=== PATIENT | female | born 1945 | race Caucasian/White ===

== ENCOUNTER 2019-06-07 11:20 | Outpatient (RCR) | payer MEDICARE, SELFPAY ==
[2019-03-22 13:45] LABS: INR 2.3; Iron 132 ug/dL (37-170); Prothrombin Time 24.4 Seconds (11.1-14.7)
[2019-03-22 13:55] LABS: Percent Iron Saturation 45 % (20-50)
[2019-04-27 13:18] LABS: Prothrombin Time 22.2 Seconds (11.1-14.7)
[2019-05-13 13:45] LABS: INR 1.6; Prothrombin Time 18.9 Seconds (11.1-14.7)
[2019-05-24 13:44] LABS: INR 2.6; Prothrombin Time 27.6 Seconds (11.1-14.7)
[2019-06-07 13:05] LABS: INR 2.7; Prothrombin Time 28.2 Seconds (11.1-14.7)
== END 2019-06-20 23:59 | disposition home or self-care (01) ==
LOC: ANHWCLAB 11:20
PROVIDERS: PCP Internal Medicine; Visit Provider Internal Medicine
DX: D64.9 Anemia, unspecified (principal); Z79.01 Long term (current) use of anticoagulants
CPT/HCPCS: 36415; 82728; 83540; 83550; 85610

== ENCOUNTER 2019-06-20 10:13 | Outpatient (CLI) | payer MEDICARE, SELFPAY ==
--- NOTE | ~2019-06-20 | NM_ITS ---
EXAMINATION: NM parathyroid w imaging DATE: 06/20/2019 14:42 INDICATION: Age-related osteoporosis TECHNIQUE: 18.5 mCi Tc99m tetrofosmin (Myoview) was administered by intravenous route. Anterior image s of the neck were obtained at 10 minutes and 2 hours. COMPARISON: None. FINDINGS: There is no focus of persistent activity in the area of the thyroid or mediastinum to suggest parathy roid adenoma. Photopenic defect at the lateral left midlung zone corresponding to a cardiac pacemaker on chest radiograph dated 02/22/2016. There is asymmetric curvilinear increased activity along the le ft upper arm which likely represents lymphatic accumulation of activity extravasated at the site of i njection. IMPRESSION: 1: No focus of abnormal persistent activity in the neck or superior mediastinum to suggest parathyroi d adenoma. Reviewed, dictated and finalized at location A. GN COORDINATOR IMPRESSION: 1: No focus of abnormal persistent activity in the neck or superior mediastinum to suggest parathyroid adenoma.
== END 2019-06-20 10:14 | disposition home or self-care (01) ==
LOC: ANHIMG 10:26
PROVIDERS: PCP Internal Medicine; Visit Provider Internal Medicine Endocrinology, Diabetes & Metabolism
DX: M81.0 Age-related osteoporosis without current pathological fracture (principal); R79.89 Other specified abnormal findings of blood chemistry
CPT/HCPCS: 78070; A9500

== ENCOUNTER 2019-09-26 10:31 | Outpatient (RCR) | payer MEDICARE, SELFPAY ==
[2019-07-05 13:40] LABS: INR 3.6; Prothrombin Time 35.2 Seconds (11.1-14.7)
[2019-07-15 14:01] LABS: INR 1.7; Prothrombin Time 19.7 Seconds (11.1-14.7)
[2019-07-22 13:38] LABS: INR 1.9; Prothrombin Time 21.2 Seconds (11.1-14.7)
[2019-08-02 13:57] LABS: INR 3.9; Prothrombin Time 37.3 Seconds (11.1-14.7)
[2019-08-10 13:36] LABS: INR 2.2
[2019-08-24 13:28] LABS: INR 2.9; Prothrombin Time 29.8 Seconds (11.1-14.7)
[2019-09-26 11:09] LABS: INR 3.3; Prothrombin Time 33.1 Seconds (11.1-14.7)
== END 2019-10-03 23:59 | disposition home or self-care (01) ==
LOC: ANHLAB 10:31
PROVIDERS: PCP Internal Medicine; Visit Provider Internal Medicine
DX: Z51.81 Encounter for therapeutic drug level monitoring (principal); Z79.01 Long term (current) use of anticoagulants
CPT/HCPCS: 36415; 85610

== ENCOUNTER 2019-11-07 11:41 | Outpatient (CLI) | payer MEDICARE, SELFPAY ==
[2019-11-07 12:34] LABS: Cholesterol 178 mg/dL (0-200); HDL Direct 68 mg/dL; Triglycerides 183 mg/dL (<150)
[2019-11-07 12:36] LABS: Hemoglobin A1C 5.9 % (<5.7)
[2019-11-07 12:45] LABS: LDL Cholesterol Direct 70 mg/dL
[2019-11-10 06:10] LABS: Homocysteine 13.1 umol/L (<10.4)
== END 2019-11-07 11:42 | disposition home or self-care (01) ==
PROVIDERS: PCP Internal Medicine; Visit Provider Internal Medicine
DX: Z79.899 Other long term (current) drug therapy (principal); E78.2 Mixed hyperlipidemia; R79.89 Other specified abnormal findings of blood chemistry
CPT/HCPCS: 36415; 80061; 83036; 83090; 84443

== ENCOUNTER 2019-11-18 00:21 | Outpatient (CLI) | payer MEDICARE, SELFPAY ==
[2019-11-19 00:18] LABS: SARS-CoV-2 RNA PCR Negative
== END 2019-11-18 00:22 | disposition home or self-care (01) ==
LOC: ANHCOVIDDT 00:21
PROVIDERS: PCP Internal Medicine; Visit Provider Specialist
DX: Z01.818 Encounter for other preprocedural examination (principal); Z11.59 Encounter for screening for other viral diseases
CPT/HCPCS: 87635; C9803; U0003

== ENCOUNTER 2019-11-21 05:26 | Day surgery (SDC) | payer MEDICARE, SELFPAY ==
[2019-11-17 16:06] VITALS: BMI 19.7
[2019-11-21 08:45] VITALS: BP 172/60; PULSE 57; RESP 15; TEMP 36.1; O2SAT 98
[2019-11-21 08:47] LABS: Basophils Percent Auto 0.5 % (0.2-1.2); Eosinophils Absolute Auto 0.3 K/mm3 (0-0.3); Eosinophils Percent Auto 3.7 % (0-4.4); Hematocrit 36.4 % (37.0-47.0); Hemoglobin 11.4 g/dL (12.0-15.0); Immature Granulocyte Absolute 0.03 K/mm3 (0.00-0.031); Immature Granulocyte Percent A 0.4 % (0-0.5); Lymphocytes Absolute Auto 1.25 K/mm3 (0.9-3.2); Lymphocytes Percent Auto 16.1 % (18.3-44.2); Mean Corpuscular HGB Conc 31.3 g/dl (32-36); Mean Corpuscular Hemoglobin 23.1 pg (26-34); Mean Corpuscular Volume 73.7 fl (80-100); Mean Platelet Volume 10.3 fl (7.4-10.4); Monocytes Absolute Auto 0.8 K/mm3 (0.1-0.6); Monocytes Percent Auto 10.8 % (2.6-8.5); Neutrophils Absolute Auto 5.3 K/mm3 (1.3-6.7); Neutrophils Percent Auto 68.5 % (45.5-73.1); Platelet Count Result 238 k/mm3 (150-375); Red Blood Count 4.94 M/mm3 (4.2-5.4); Red Cell Distribution Width 15.3 % (11.5-14.5); White Blood Count 7.8 K/mm3 (4.5-10.0)
[2019-11-21 08:56] LABS: INR 1.1; Prothrombin Time 13.7 Seconds (11.1-14.7)
[2019-11-21 09:04] LABS: Blood Urea Nitrogen 25 mg/dL (7-17); Calcium 9.1 mg/dL (8.4-10.2); Carbon Dioxide 25 mmol/L (22-30); Chloride 107 mmol/L (98-107); Estimated CRCL calculation 35 ml/min; Estimated Glomerular Filt Rate > 60; Glucose 111 mg/dL (65-105); Potassium 5.3 mmol/L (3.4-5.0); Sodium 137 mmol/L (137-145)
--- NOTE | 2019-11-21 09:11 | WPDMODSED ---
Moderate Sedation Note-Pt Data Patient Data Diagnosis: Permanently implanted pacemaker at [facility] Paroxysmal atrial fibrillation History of mitral valve stenosis status post commissurotomy Present Complaint: No complaints Procedure to be performed/Plan: Pacemaker generator change Allergies Allergy/AdvReac Type Severity Reaction Status Date / Time No Known Allergies Allergy Verified 11/11/19 11:16 Home Medications Medication Instructions Recorded Confirmed Type pravastatin 40 mg tablet 40 mg PO DAILY #90 tablet 04/25/19 11/21/19 Rx sotalol 80 mg tablet 80 mg PO BID tablet 07/05/19 11/21/19 History folic acid 1 mg tablet 1 mg PO DAILY 07/08/19 11/21/19 History losartan 25 mg tablet 25 mg PO DAILY #90 tablet 09/20/19 11/21/19 Rx warfarin 1 mg tablet 1 mg PO DAILY #90 tablet 10/11/19 11/21/19 Rx warfarin 2 mg tablet 2 mg PO DAILY #90 tablet 10/11/19 11/21/19 Rx phenytoin sodium extended 100 mg PO BID 11/21/19 11/21/19 History Sedation/Anesthesia: No previous sedation/anesthesia problems (including family history). [facility] Past Medical History Medical History (Updated 11/11/19 @ 11:30 by Deana Hernandez CMA) Abnormal finding of blood chemistry, unspecified Adult BMI 19-24 kg/sq m Aortic valve disease Benign essential hypertension Cardiac pacemaker in situ Chronic atrial fibrillation Elevated homocysteine Elevated parathyroid hormone Encounter for Medicare annual wellness exam Encounter for routine adult health examination without abnormal findings Follow up Hearing loss Hemiparesis of left nondominant side History of CVA (cerebrovascular accident) Hyperlipidemia 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 Pre-diabetes Rash Seizures Vitamin D deficiency Social History Social History Smoking status: Never smoker Alcohol intake: current 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 Physical Exam Physical Exam Pre Procedural Exam: Normal: Appearance, Neck, Throat, Airway, Lungs, Heart Size, Heart Rate, Heart Rhythm, Neuro Exam and Extremities Hours since solid foods: 12 Hours since liquid intake: 12 Internal Medicine - PN: Obj Da Labs CBC & Chem 7: 11/21/19 08:35 11/21/19 08:35 Labs: Laboratory Results - last 24 hr 11/21/19 11/21/19 11/21/19 08:35 08:35 08:35 WBC 7.8 RBC 4.94 Hgb 11.4 L Hct 36.4 L MCV 73.7 L MCH 23.1 L MCHC 31.3 L RDW 15.3 H Plt Count 238 MPV 10.3 Immature Gran % (Auto) 0.4 Neut % (Auto) 68.5 Lymph % (Auto) 16.1 L [place] % (Auto) 10.8 H Eos % (Auto) 3.7 Baso % (Auto) 0.5 Lymph # (Auto) 1.25 [place] # (Auto) 0.8 H Eos # (Auto) 0.3 Baso # (Auto) 0.0 Abs Immat Gran (auto) 0.03 Absolute Neuts (auto) 5.3 Absolute Nucleated RBC 0.0 Nucleated RBC % 0.0 PT 13.7 INR 1.1 Sodium 137 Potassium 5.3 H Chloride 107 Carbon Dioxide 25 BUN 25 H Creatinine 0.90 Estim Creat Clear Calc 35 Estimated GFR > 60 Glucose 111 H Calcium 9.1 ASA Classification/Sedation ASA Classification/Sedation ASA Class: II Emergent: No Risks: Risks, benefits and alternatives explained and patient/family accepted plan for sedation. Patient re-evaluated immediately prior to sedation.
--- NOTE | 2019-11-21 10:37 | P.PCNCC_ITS ---
Cardiac Cath Procedure Note Date of procedure:: 11/21/19 Performing physician:: Amrik Anand MD Indication:: Chronically implanted pacemaker at [facility] Brief clinical history:: this is a 74-year-old lady with a history of mitral valve disease and atrial fibrillation. She has a chronically implanted ventricular pacemaker originally placed in 1991. The current generator which I believe is her 3rd is now at [facility]. Procedure Procedure performed:: Explantation of depleted pacemaker pulse generator implantation of new pacemaker pulse generator Sedation/Medication given:: fentanyl 50 mg Versed 2 mg case start time 10:12 a.m. case end time 10:30 a.m. sedation provided by Jian Myers RN, trained observer Access site:: chronic left anterior chest wall pocket Estimated blood loss:: 10-15 cc Procedure note:: patient was brought to the cardiac catheterization lab in the postabsorptive state the left anterior chest wall with the chronically implanted device was prepped and draped in the usual sterile fashion. Anesthesia was then provided above the pocket using 1% lidocaine 20 cc. Following this an incision was made using the plasma blade over the chronically implanted device and electrocautery was used to provide cutaneous hemostasis. The plasma blade was used to dissect the subcutaneous fat and the fibrous capsule of the pocket was encountered. This was then opened with the plasma blade in the chronically implanted pacing device was removed. The pacemaker generator and the lead were visually intact and unremarkable in appearance. The torque wrench was used to loosen the lead from the chronic device and remove the lead. The the depleted device was then discarded. The new pacemaker generator detailed below was connected to the lead using the torque wrench the entire assembly was placed into the pocket which was then closed in layers. Prior to closure the pocket was irrigated with antibiotic infused saline. 3-0 Vicryl was used to provides closure of the subcutaneous tissue and then 4 0 Vicryl in a running subcuticular fashion. The wound was then dressed with an Aquacel dressing and the patient was taken to the holding area for recovery. The procedure was well tolerated and unremarkable. Findings:: Explantation of chronically implanted pacemaker generator which was a [employer] SR 5180 serial number [id number]. implantation of new pacemaker generator, [employer] [facility] [id number]. the device is programmed in the VVI mode lower rate limit 50. L chronically implanted [employer] lead model 033-444 serial [id number]. R waves are sensed at 9.9 mV, capture 1.0 volt at 0.4 millisecond pacing impedance 530 Ohms Conclusion:: 1. successful explantation of depleted pacemaker pulse generator 2. successful implantation of new single-chamber ventricular pulse generator 3. chronically implanted lead from 1991 is performing excellently Amrik Anand MD [facility]
[2019-11-21 10:45] VITALS: BP 152/55; PULSE 59; RESP 14; O2SAT 96
[2019-11-21 11:00] VITALS: BP 146/48; PULSE 59; RESP 15; O2SAT 97
[2019-11-21 11:15] VITALS: BP 113/51; PULSE 17; RESP 18; O2SAT 96
[2019-11-21 11:30] VITALS: BP 108/48; PULSE 58; RESP 16; O2SAT 97
== END 2019-11-21 12:00 | disposition home or self-care (01) ==
PROVIDERS: PCP Internal Medicine; Visit Provider Specialist
DX: Z45.010 Encounter for checking and testing of cardiac pacemaker pulse generator [battery] (principal); I48.0 Paroxysmal atrial fibrillation; I10 Essential (primary) hypertension; I69.354 Hemiplegia and hemiparesis following cerebral infarction affecting left non-dominant side; E78.5 Hyperlipidemia, unspecified; G40.909 Epilepsy, unspecified, not intractable, without status epilepticus; Z79.01 Long term (current) use of anticoagulants
CPT/HCPCS: 33227; 36415; 80048; 85025; 85610; C1786; J0690; J2250; J3010; J7040

== ENCOUNTER 2019-12-08 13:00 | Outpatient (RCR) | payer MEDICARE, SELFPAY ==
[2019-10-05 12:12] LABS: INR 2.4; Prothrombin Time 25.4 Seconds (11.1-14.7)
[2019-10-24 10:35] LABS: Prothrombin Time 22.3 Seconds (11.1-14.7)
[2019-12-01 14:11] LABS: INR 1.8; Prothrombin Time 20.5 Seconds (11.1-14.7)
[2019-12-08 13:56] LABS: INR 2.2; Prothrombin Time 24.2 Seconds (11.1-14.7)
== END 2020-01-03 23:59 | disposition home or self-care (01) ==
LOC: ANHLAB 13:00
PROVIDERS: PCP Internal Medicine; Visit Provider Internal Medicine
DX: Z51.81 Encounter for therapeutic drug level monitoring (principal); I48.20 Chronic atrial fibrillation, unspecified; I10 Essential (primary) hypertension; Z79.899 Other long term (current) drug therapy
CPT/HCPCS: 36415; 85610

== ENCOUNTER → 2019-12-19 11:01 | Outpatient (CLI) | payer MEDICARE, SELFPAY ==
--- NOTE | ~2019-12-19 | US_ITS ---
EXAMINATION: US thyroid EXAM DATE: 12/19/2019 11:22 INDICATION: Endocrine disorder. TECHNIQUE: Multiple grayscale and Doppler images of the thyroid were obtained (by a technologist who performed the scan) and subsequently reviewed. Individual nodules and recommendations may be reporte d in accordance with TI-RADS system as designated by the 2017 ACR White Paper TI-RADS committee. The re is no prior study for comparison. FINDINGS: The right thyroid lobe measures 3.7 x 2.0 x 1.1 cm, the left measuring 3.6 x 1.1 x 0.9 cm. Mildly het erogeneous thyroid echogenicity with expected amount of vascularity. There are 2 small hypoechoic rig ht thyroid lobe nodules, larger measuring 4 mm. These are not likely clinically significant. IMPRESSION: Mildly heterogeneous thyroid parenchyma, small nodules not likely clinically significant. Reviewed, dictated and finalized at location A. IMPRESSION: Mildly heterogeneous thyroid parenchyma, small nodules not likely c linically significant.
== END ==
PROVIDERS: PCP Internal Medicine; Visit Provider Internal Medicine
DX: E04.1 Nontoxic single thyroid nodule (principal)
CPT/HCPCS: 76536

== ENCOUNTER 2020-03-14 13:35 | Outpatient (CLI) | payer MEDICARE, SELFPAY ==
[2020-03-14 14:02] LABS: Basophils Percent Auto 0.6 % (0.2-1.2); Eosinophils Absolute Auto 0.3 K/mm3 (0-0.3); Eosinophils Percent Auto 4.2 % (0-4.4); Hematocrit 36.8 % (37.0-47.0); Hemoglobin 11.4 g/dL (12.0-15.0); Immature Granulocyte Absolute 0.02 K/mm3 (0.00-0.031); Immature Granulocyte Percent A 0.3 % (0-0.5); Lymphocytes Absolute Auto 1.45 K/mm3 (0.9-3.2); Lymphocytes Percent Auto 21.1 % (18.3-44.2); Mean Corpuscular Volume 74.3 fl (80-100); Mean Platelet Volume 9.4 fl (7.4-10.4); Monocytes Absolute Auto 0.8 K/mm3 (0.1-0.6); Monocytes Percent Auto 11.2 % (2.6-8.5); Neutrophils Absolute Auto 4.3 K/mm3 (1.3-6.7); Neutrophils Percent Auto 62.6 % (45.5-73.1); Platelet Count Result 205 k/mm3 (150-375); Red Blood Count 4.95 M/mm3 (4.2-5.4); Red Cell Distribution Width 15.2 % (11.5-14.5); White Blood Count 6.9 K/mm3 (4.5-10.0)
[2020-03-14 14:10] LABS: Hemoglobin A1C 5.4 % (<5.7)
[2020-03-14 14:24] LABS: LDL Cholesterol Direct 54 mg/dL
[2020-03-14 14:35] LABS: Cholesterol 159 mg/dL (0-200); HDL Direct 67 mg/dL; Triglycerides 181 mg/dL (<150)
[2020-03-16 16:51] LABS: Anion Gap 7 mmol/L (8-16); Carbon Dioxide 25 mmol/L (22-30); Chloride 109 mmol/L (98-107); Sodium 141 mmol/L (137-145)
[2020-03-16 16:52] LABS: Blood Urea Nitrogen 20 mg/dL (7-17); Calcium 9.1 mg/dL (8.4-10.2); Estimated Glomerular Filt Rate 54; Glucose 102 mg/dL (65-105)
== END 2020-03-14 13:36 | disposition home or self-care (01) ==
LOC: ANHLAB 13:38
PROVIDERS: PCP Internal Medicine; Visit Provider Internal Medicine
DX: I10 Essential (primary) hypertension (principal); E78.2 Mixed hyperlipidemia; R73.03 Prediabetes
CPT/HCPCS: 36415; 80048; 80061; 83036; 85025; 85610

== ENCOUNTER → 2020-03-23 09:28 | Outpatient (CLI) | payer MEDICARE, SELFPAY ==
--- NOTE | ~2020-03-23 | DEXA_ITS ---
Bone Density Report Name: Kait Skaggs Age: 75 Sex: Female Ethnicity: Date of : 1945 Indication: postmenopausal osteoporosis; monitoring treatment; height loss; prior fracture; Referring Provider: Perlita Argueta Study: Bone densitometry was performed. Exam Date: March 23, 2020 Accession number: [id number] Bone Density: Region BMD T-score Z-score Classification AP Spine (L1-L4) 0.658 -3.5 -1.0 Osteoporosis Femoral Neck (Left) 0.474 -3.4 -1.2 Osteoporosis Total Hip (Left) 0.510 -3.5 -1.6 Osteoporosis Femoral Neck (Right) 0.505 -3.1 -0.9 Osteoporosis Total Hip (Right) 0.585 -2.9 -1.0 Osteoporosis Total Hip Mean 0.548 -3.2 -1.3 Osteoporosis World Health Organization criteria for BMD impression classify patients as: Normal (T-score at or above -1.0), Osteopenia (T-score between -1.0 and -2.5), or Osteoporosis (T-score at or below -2.5). 10-year Fracture Risk: FRAX not reported because: Some T-score for Spine Total or Hip Total or Femoral Neck at or below -2.5 Treated for osteoporosis Previous Exams: Region Exam Age BMD T-score BMD Change BMD Change Date g/cm2 vs Baseline vs Previous AP Spine(L1-L4) 03/23/2020 75 0.658 -3.5 0.032* -0.006 03/31/2018 73 0.664 -3.5 0.038* 0.007 03/13/2016 71 0.657 -3.5 0.031* 0.035 12/15/2013 68 0.623 -3.9 -0.004 -0.004 12/22/2005 60 0.626 -3.8 Total Hip(Left) 03/23/2020 75 0.510 -3.5 0.041* 0.000 03/31/2018 73 0.510 -3.5 0.041* -0.004 03/13/2016 71 0.514 -3.5 0.045* 0.016 12/15/2013 68 0.498 -3.6 0.029* 0.029* 12/22/2005 60 0.469 -3.9 Total Hip(Right) 03/23/2020 75 0.585 -2.9 0.030* -0.005 03/31/2018 73 0.591 -2.9 0.035* 0.003 03/13/2016 71 0.588 -2.9 0.033* 0.006 12/15/2013 68 0.582 -2.9 0.027 0.027 12/22/2005 60 0.555 -3.2 *Denotes significance at 95% confidence level, LSC for AP Spine = 0.022 g/cm2, LSC for Total Hip = 0.027 g/cm2 Clinical Information Provided by Patient: Has had a low trauma fracture Is being treated for osteoporosis Has used the following medications: Fosamax (i.e. alendronate), Vitamin D, Calcium Patient maximum height was 61 Menopause Age: 50 No regular weight bearing exercise Drinks caffeinated beverages Onset of menses at age 13 Number of childr
== END ==
PROVIDERS: Visit Provider Internal Medicine Endocrinology, Diabetes & Metabolism
DX: M81.0 Age-related osteoporosis without current pathological fracture (principal)
CPT/HCPCS: 77080

== ENCOUNTER → 2020-03-29 14:27 | Outpatient (CLI) | payer MEDICARE, SELFPAY ==
--- NOTE | ~2020-03-29 | MM_ITS ---
EXAMINATION: MM screening gopi BI w jarrod HISTORY: Screening mammogram TECHNIQUE: Craniocaudal and mediolateral oblique 3-D tomosynthesis images were obtained and synthetic 2-D images were generated. CAD analysis was submitted and interpreted. COMPARISON: 04/13/2017, 03/13/2016, 03/08/2015 BREAST PARENCHYMAL COMPOSITION: The breasts are heterogeneously dense, which may obscure small masses . FINDINGS: Scattered benign-appearing calcifications are present. There is no evidence of suspicious m ass, calcification, or architectural distortion to suggest malignancy in either breast. There has bee n no suspicious interval change. IMPRESSION: 1. No mammographic evidence of malignancy. 2. Recommend routine screening mammography in one year. BI-RADS Category 2: Benign finding(s). Reviewed, dictated and finalized at location A. SIT CLERK
== END ==
PROVIDERS: PCP Internal Medicine; Visit Provider Internal Medicine
DX: Z12.31 Encounter for screening mammogram for malignant neoplasm of breast (principal)
CPT/HCPCS: 77063; 77067

== ENCOUNTER 2020-04-06 13:18 | Outpatient (RCR) | payer MEDICARE, SELFPAY ==
[2020-01-09 14:56] LABS: INR 2.4; Prothrombin Time 25.4 Seconds (11.1-14.7)
[2020-02-07 13:47] LABS: INR 2.8; Prothrombin Time 28.9 Seconds (11.1-14.7)
[2020-03-14 14:12] LABS: INR 2.8; Prothrombin Time 28.8 Seconds (11.1-14.7)
[2020-04-06 14:45] LABS: INR 2.6; Prothrombin Time 28.1 Seconds (11.1-14.7)
== END 2020-04-08 23:59 | disposition home or self-care (01) ==
LOC: ANHLAB 13:18
PROVIDERS: PCP Internal Medicine; Visit Provider Internal Medicine
DX: I48.20 Chronic atrial fibrillation, unspecified (principal)
CPT/HCPCS: 36415; 85610

== ENCOUNTER 2020-07-24 13:52 | Outpatient (RCR) | payer MEDICARE, SELFPAY ==
[2020-05-02 14:16] LABS: INR 2.8
[2020-06-15 14:29] LABS: Basophils Percent Auto 0.4 % (0.2-1.2); Eosinophils Absolute Auto 0.4 K/mm3 (0-0.3); Hematocrit 33.9 % (37.0-47.0); Hemoglobin 10.6 g/dL (12.0-15.0); Immature Granulocyte Absolute 0.03 K/mm3 (0.00-0.031); Immature Granulocyte Percent A 0.4 % (0-0.5); Lymphocytes Absolute Auto 1.55 K/mm3 (0.9-3.2); Lymphocytes Percent Auto 22.3 % (18.3-44.2); Mean Corpuscular HGB Conc 31.3 g/dl (32-36); Mean Corpuscular Hemoglobin 22.9 pg (26-34); Mean Corpuscular Volume 73.2 fl (80-100); Mean Platelet Volume 9.6 fl (7.4-10.4); Monocytes Absolute Auto 0.8 K/mm3 (0.1-0.6); Monocytes Percent Auto 11.8 % (2.6-8.5); Neutrophils Absolute Auto 4.2 K/mm3 (1.3-6.7); Neutrophils Percent Auto 60.1 % (45.5-73.1); Platelet Count Result 203 k/mm3 (150-375); Red Blood Count 4.63 M/mm3 (4.2-5.4); Red Cell Distribution Width 15.2 % (11.5-14.5)
[2020-06-15 14:40] LABS: Anion Gap 4 mmol/L (8-16); Blood Urea Nitrogen 22 mg/dL (7-17); Carbon Dioxide 27 mmol/L (22-30); Chloride 109 mmol/L (98-107); Cholesterol 159 mg/dL (0-200); Estimated Glomerular Filt Rate 48; Glucose 105 mg/dL (65-105); HDL Direct 63 mg/dL; Potassium 4.5 mmol/L (3.4-5.0); Sodium 140 mmol/L (137-145); Triglycerides 152 mg/dL (<150)
[2020-06-15 14:50] LABS: LDL Cholesterol Direct 59 mg/dL
[2020-06-15 14:52] LABS: INR 2.4; Prothrombin Time 26.6 Seconds (11.1-14.7)
[2020-06-15 16:27] LABS: Hemoglobin A1C 5.4 % (<5.7)
[2020-07-09 14:59] LABS: INR 3.1; Prothrombin Time 32.3 Seconds (11.1-14.7)
[2020-07-24 14:24] LABS: INR 2.2
== END 2020-07-31 23:59 | disposition home or self-care (01) ==
LOC: ANHLAB 13:52
PROVIDERS: PCP Internal Medicine; Visit Provider Internal Medicine
DX: Z51.81 Encounter for therapeutic drug level monitoring (principal); I48.20 Chronic atrial fibrillation, unspecified; I10 Essential (primary) hypertension; E78.2 Mixed hyperlipidemia; R73.03 Prediabetes; Z79.899 Other long term (current) drug therapy
CPT/HCPCS: 36415; 80048; 80061; 83036; 85025; 85610

== ENCOUNTER 2020-11-09 16:15 | Outpatient (RCR) | payer MEDICARE, SELFPAY ==
[2020-08-23 12:49] LABS: INR 2.1; Prothrombin Time 24.5 Seconds (11.1-14.7)
[2020-09-28 14:04] LABS: INR 1.9
[2020-10-12 16:25] LABS: Prothrombin Time 23.2 Seconds (11.1-14.7)
[2020-11-09 17:26] LABS: INR 1.9; Prothrombin Time 22.4 Seconds (11.1-14.7)
== END 2020-11-21 23:59 | disposition home or self-care (01) ==
LOC: ANHLAB 16:15
PROVIDERS: PCP Internal Medicine; Visit Provider Internal Medicine
DX: I48.20 Chronic atrial fibrillation, unspecified (principal)
CPT/HCPCS: 36415; 85610

== ENCOUNTER 2020-11-09 16:18 | Outpatient (CLI) | payer MEDICARE, SELFPAY ==
[2020-11-09 17:21] LABS: Add Urine Microscopic? YES; Appearance Urine Clear (Clear); Bilirubin Urine Negative (Negative); Blood Urine Negative (Negative); Color Urine Yellow (Yellow); Glucose Urine UA Negative (Negative); Ketones Urine Negative (Negative); Leukocyte Esterase Ur Negative LEU/UL (NEGATIVE); Nitrate Urine Negative (Negative); Protein Urine 2+ mg/dL (Negative); Squamous Epithelial Cell Urine Rare /hpf (Few); Urobilinogen Urine Negative mg/dL (<2.0); WBC Urine 0-3 /hpf (0-3)
[2020-11-09 17:34] LABS: Anion Gap 8 mmol/L (8-16); Blood Urea Nitrogen 21 mg/dL (7-17); Calcium 9.3 mg/dL (8.4-10.2); Carbon Dioxide 25 mmol/L (22-30); Chloride 108 mmol/L (98-107); Cholesterol 168 mg/dL (0-200); Estimated Glomerular Filt Rate 48; Glucose 96 mg/dL (65-105); HDL Direct 78 mg/dL; Potassium 4.4 mmol/L (3.4-5.0); Sodium 141 mmol/L (137-145)
[2020-11-09 17:38] LABS: LDL Cholesterol Direct 62 mg/dL
[2020-11-09 18:04] LABS: Iron 108 ug/dL (37-170)
[2020-11-09 18:13] LABS: Percent Iron Saturation 39 % (20-50)
[2020-11-09 18:22] LABS: Hemoglobin A1C 5.7 % (<5.7)
[2020-11-09 21:35] LABS: Triglycerides 117 mg/dL (<150)
[2020-11-13 05:17] LABS: Phenytoin Dilantin Free 1.5 mg/L (1.0-2.0)
== END 2020-11-09 16:19 | disposition home or self-care (01) ==
PROVIDERS: PCP Internal Medicine; Visit Provider Internal Medicine
DX: D64.9 Anemia, unspecified (principal); I10 Essential (primary) hypertension; E78.2 Mixed hyperlipidemia; Z79.899 Other long term (current) drug therapy; R56.9 Unspecified convulsions; R73.03 Prediabetes
CPT/HCPCS: 36415; 80048; 80061; 80186; 81001; 82728; 83036; 83540; 83550; 85610

== ENCOUNTER 2020-11-16 13:43 | Outpatient (CLI) | payer MEDICARE, SELFPAY ==
--- NOTE | ~2020-11-16 | CT_ITS ---
EXAMINATION: CT abdomen pelvis wo/w con EXAM DATE: 11/16/2020 15:16 INDICATION: R31.9 - Hematuria, unspecified. TECHNIQUE: Spiral CT of the abdomen and pelvis was performed without contrast. The patient was then injected with small bolus intravenous Omnipaque 350, followed by delay of approximately 10 minutes to allow collecting system to opacify. A post contrast scan abdomen and pelvis was performed during inj ection of remaining contrast. A total of 130 cc intravenous contrast was administered. The dose-evangelista th product (DLP) for this examination was 588.61 mGy-cm. The exposure was tailored according to suzette ent size (auto mA exposure control), and iterative reconstruction (ASIR) was used as additional dose reduction technique. There is no prior study for comparison. FINDINGS: There is no hydronephrosis or nephrolithiasis. The kidneys enhance symmetrically. There a re no suspicious renal lesions. The calyces and opacified portions of ureters are unremarkable, with out filling defects or focal suspicious strictures. The bladder is unremarkable. The uterus is unre markable. The liver, spleen, adrenal glands and pancreas are unremarkable. Gallbladder is unremarkable. No bi liary obstruction. There is no retroperitoneal or pelvic lymphadenopathy. There is mild scattered arteriosclerotic disease. The appendix is not positively visualized. There is no pericecal inflammatory change to suggest appe ndicitis. The stomach and small bowel are unremarkable. There is expected amount of colonic stool. No free intraperitoneal gas. Cardiomegaly. Cardiac pacemaker/AICD device. Basilar pulmonary vasc ular congestion and some groundglass opacities, could be air trapping or mild pulmonary edema. There are no osteoblastic or osteolytic lesions identified. IMPRESSION: 1. No suspicious genitourinary findings. 2. Cardiomegaly, congestion. Mild pulmonary edema or air trapping. Reviewed, dictated and finalized at location A.
[2020-11-16 14:51] LABS: Estimated Glomerular Filt Rate 40
== END 2020-11-16 13:44 | disposition home or self-care (01) ==
PROVIDERS: PCP Internal Medicine; Visit Provider Internal Medicine
DX: R31.9 Hematuria, unspecified (principal); I51.7 Cardiomegaly
CPT/HCPCS: 74178; Q9967

== ENCOUNTER 2020-11-23 16:09 | Outpatient (CLI) | payer MEDICARE, SELFPAY ==
[2020-11-23 16:47] LABS: Collection Time Urine 24 HOURS
[2020-11-23 17:03] LABS: Total Volume 24 Hour Urine 500 ml
[2020-11-23 17:04] LABS: Creatinine Urine 98.6 mg/dL; Total Protein Urine 24 Hr 50 mg/24hr (28-141); Total Protein Urine Random 10 mg/dL
[2020-12-02 15:02] LABS: Serum Creat 1.3
[2020-12-02 15:05] LABS: Creatinine Clearance Urine 32.5 ml/min (75-125); Patient Weight 103 Lbs
== END 2020-11-23 16:10 | disposition home or self-care (01) ==
LOC: ANHLAB 16:14
PROVIDERS: PCP Internal Medicine; Visit Provider Internal Medicine
DX: R80.9 Proteinuria, unspecified (principal)
CPT/HCPCS: 36415; 81050; 82575; 84156; 85610

== ENCOUNTER 2020-11-30 12:07 | Outpatient (CLI) | payer MEDICARE, SELFPAY ==
[2020-11-30 12:38] LABS: Estimated Glomerular Filt Rate 40
== END 2020-11-30 12:08 | disposition home or self-care (01) ==
LOC: ANHLAB 12:12
PROVIDERS: PCP Internal Medicine; Visit Provider Internal Medicine
DX: R80.9 Proteinuria, unspecified (principal)
CPT/HCPCS: 36415; 82565

== ENCOUNTER 2021-02-08 13:46 | Outpatient (RCR) | payer MEDICARE, SELFPAY ==
[2020-11-23 16:52] LABS: INR 1.9; Prothrombin Time 21.4 Seconds (11.1-14.7)
[2020-12-28 12:27] LABS: INR 2.1; Prothrombin Time 22.8 Seconds (11.1-14.7)
[2021-01-18 17:30] LABS: INR 1.9; Prothrombin Time 21.6 Seconds (11.1-14.7)
[2021-02-08 14:31] LABS: INR 2.2; Prothrombin Time 23.7 Seconds (11.1-14.7)
== END 2021-02-21 23:59 | disposition home or self-care (01) ==
LOC: ANHLAB 13:46
PROVIDERS: PCP Internal Medicine; Visit Provider Internal Medicine
DX: I48.20 Chronic atrial fibrillation, unspecified (principal)
CPT/HCPCS: 36415; 85610

== ENCOUNTER 2021-03-21 16:51 | Outpatient (CLI) | payer MEDICARE, SELFPAY ==
[2021-03-21 17:11] LABS: Basophils Percent Auto 0.4 % (0.2-1.2); Eosinophils Absolute Auto 0.3 K/mm3 (0-0.3); Eosinophils Percent Auto 4.3 % (0-4.4); Hematocrit 38.6 % (37.0-47.0); Immature Granulocyte Absolute 0.01 K/mm3 (0.00-0.031); Immature Granulocyte Percent A 0.1 % (0-0.5); Lymphocytes Absolute Auto 1.77 K/mm3 (0.9-3.2); Lymphocytes Percent Auto 26.4 % (18.3-44.2); Mean Corpuscular HGB Conc 31.1 g/dl (32-36); Mean Corpuscular Hemoglobin 23.5 pg (26-34); Mean Corpuscular Volume 75.7 fl (80-100); Mean Platelet Volume 9.3 fl (7.4-10.4); Monocytes Absolute Auto 0.8 K/mm3 (0.1-0.6); Monocytes Percent Auto 11.3 % (2.6-8.5); Neutrophils Absolute Auto 3.8 K/mm3 (1.3-6.7); Neutrophils Percent Auto 57.5 % (45.5-73.1); Platelet Count Result 212 k/mm3 (150-375); White Blood Count 6.7 K/mm3 (4.5-10.0)
[2021-03-21 17:18] LABS: Hemoglobin A1C 5.5 % (<5.7)
[2021-03-21 17:23] LABS: Anion Gap 9 mmol/L (8-16); Blood Urea Nitrogen 20 mg/dL (7-17); Calcium 9.5 mg/dL (8.4-10.2); Carbon Dioxide 26 mmol/L (22-30); Chloride 107 mmol/L (98-107); Cholesterol 187 mg/dL (0-200); Estimated Glomerular Filt Rate 48; Glucose 112 mg/dL (65-110); HDL Direct 81 mg/dL; Potassium 4.6 mmol/L (3.4-5.0); Sodium 142 mmol/L (137-145); Triglycerides 140 mg/dL (<150)
[2021-03-21 17:34] LABS: LDL Cholesterol Direct 70 mg/dL
[2021-03-21 18:37] LABS: Free T4 Free Thyroxine 1.22 ng/mL (0.78-2.19)
== END 2021-03-21 16:52 | disposition home or self-care (01) ==
LOC: ANHLAB 16:54
PROVIDERS: PCP Internal Medicine; Visit Provider Internal Medicine
DX: E78.2 Mixed hyperlipidemia (principal); I10 Essential (primary) hypertension; R73.03 Prediabetes; Z79.899 Other long term (current) drug therapy; D64.9 Anemia, unspecified
CPT/HCPCS: 36415; 80048; 80061; 83036; 84439; 84443; 85025

== ENCOUNTER 2021-05-23 16:59 | Outpatient (RCR) | payer MEDICARE, SELFPAY ==
[2021-03-08 12:13] LABS: INR 2.5; Prothrombin Time 26.1 Seconds (11.1-14.7)
[2021-04-18 17:16] LABS: INR 2.3; Prothrombin Time 24.8 Seconds (11.1-14.7)
[2021-05-23 17:25] LABS: INR 2.5; Prothrombin Time 26.6 Seconds (11.1-14.7)
== END 2021-06-06 23:59 | disposition home or self-care (01) ==
LOC: ANHLAB 16:59
PROVIDERS: PCP Internal Medicine; Visit Provider Internal Medicine
DX: I48.20 Chronic atrial fibrillation, unspecified (principal)
CPT/HCPCS: 36415; 85610

== ENCOUNTER 2021-07-08 12:31 | Outpatient (CLI) | payer MEDICARE, SELFPAY ==
[2021-07-08 13:34] LABS: Alanine Aminotransferase 21 U/L (4-35); Alkaline Phosphatase 91 U/L (38-126); Anion Gap 9 mmol/L (8-16); Aspartate Amino Transferase 32 U/L (14-36); Bilirubin,Total 0.2 mg/dL (0.2-1.3); Blood Urea Nitrogen 22 mg/dL (7-17); Calcium 9.4 mg/dL (8.4-10.2); Carbon Dioxide 23 mmol/L (22-30); Chloride 111 mmol/L (98-107); Estimated Glomerular Filt Rate 48; Glucose 109 mg/dL (65-110); Magnesium 1.8 mg/dL (1.6-2.3); Potassium 4.6 mmol/L (3.4-5.0); Sodium 143 mmol/L (137-145)
[2021-07-08 13:43] LABS: Parathyroid Intact 81.3 pg/mL (7.5-53.5)
[2021-07-08 14:46] LABS: Vitamin D 25 Hydroxy 62.5 ng/mL
[2021-07-10 11:33] LABS: Cholesterol 176 mg/dL (0-200); HDL Direct 65 mg/dL; Triglycerides 139 mg/dL (<150)
[2021-07-10 11:45] LABS: LDL Cholesterol Direct 63 mg/dL
== END 2021-07-08 12:32 | disposition home or self-care (01) ==
LOC: ANHLAB 12:39
PROVIDERS: PCP Internal Medicine
DX: E78.2 Mixed hyperlipidemia (principal); M81.0 Age-related osteoporosis without current pathological fracture
CPT/HCPCS: 36415; 80053; 80061; 82306; 83735; 83970; 84100

== ENCOUNTER 2021-07-18 16:54 | Outpatient (CLI) | payer MEDICARE, SELFPAY ==
[2021-07-21 06:49] LABS: Triiodothyronine T3 Free 3.2 pg/mL (2.3-4.2)
== END 2021-07-18 16:55 | disposition home or self-care (01) ==
PROVIDERS: PCP Internal Medicine
DX: R53.83 Other fatigue (principal); Z51.81 Encounter for therapeutic drug level monitoring; Z79.899 Other long term (current) drug therapy
CPT/HCPCS: 36415; 80053; 80186; 82306; 83735; 83970; 84100; 84439; 84443; 84481; 85610

== ENCOUNTER 2021-08-01 17:10 | Outpatient (CLI) | payer MEDICARE, SELFPAY ==
[2021-08-01 18:04] LABS: Anion Gap 7 mmol/L (8-16); Blood Urea Nitrogen 24 mg/dL (7-17); Calcium 8.5 mg/dL (8.4-10.2); Carbon Dioxide 23 mmol/L (22-30); Chloride 109 mmol/L (98-107); Cholesterol 169 mg/dL (0-200); Estimated Glomerular Filt Rate 54; Glucose 110 mg/dL (65-110); HDL Direct 72 mg/dL; Potassium 4.9 mmol/L (3.4-5.0); Sodium 139 mmol/L (137-145); Triglycerides 110 mg/dL (<150)
[2021-08-01 18:15] LABS: LDL Cholesterol Direct 56 mg/dL
[2021-08-01 18:58] LABS: Hemoglobin A1C 5.2 % (<5.7)
== END 2021-08-01 17:11 | disposition home or self-care (01) ==
LOC: ANHLAB 17:12
PROVIDERS: PCP Internal Medicine; Visit Provider Internal Medicine
DX: R73.03 Prediabetes (principal); E78.2 Mixed hyperlipidemia; I10 Essential (primary) hypertension; R56.9 Unspecified convulsions
CPT/HCPCS: 36415; 80048; 80061; 83036

== ENCOUNTER 2021-08-22 17:14 | Outpatient (RCR) | payer MEDICARE, SELFPAY ==
[2021-06-17 17:59] LABS: INR 1.9; Prothrombin Time 21.3 Seconds (11.1-14.7)
[2021-07-18 17:54] LABS: INR 1.6; Prothrombin Time 18.8 Seconds (11.1-14.7)
[2021-07-18 17:55] LABS: Alanine Aminotransferase 19 U/L (4-35); Albumin Level 4.1 g/dL (3.5-5.1); Alkaline Phosphatase 92 U/L (38-126); Anion Gap 9 mmol/L (8-16); Aspartate Amino Transferase 32 U/L (14-36); Bilirubin,Total 0.2 mg/dL (0.2-1.3); Blood Urea Nitrogen 19 mg/dL (7-17); Carbon Dioxide 23 mmol/L (22-30); Chloride 109 mmol/L (98-107); Estimated Glomerular Filt Rate 54; Glucose 110 mg/dL (65-110); Magnesium 1.5 mg/dL (1.6-2.3); Potassium 4.4 mmol/L (3.4-5.0); Sodium 141 mmol/L (137-145)
[2021-07-18 18:06] LABS: Parathyroid Intact 62.6 pg/mL (7.5-53.5)
[2021-07-18 19:12] LABS: Free T4 Free Thyroxine 1.51 ng/mL (0.78-2.19); Vitamin D 25 Hydroxy 58.9 ng/mL
[2021-07-21 18:34] LABS: Phenytoin Dilantin Free 0.6 mg/L (1.0-2.0)
[2021-07-25 16:44] LABS: INR 2.6; Prothrombin Time 26.9 Seconds (11.1-14.7)
[2021-08-22 17:55] LABS: INR 2.7; Prothrombin Time 27.5 Seconds (11.1-14.7)
== END 2021-09-15 23:59 | disposition home or self-care (01) ==
LOC: ANHLAB 17:14
PROVIDERS: PCP Internal Medicine; Referring Provider Internal Medicine Endocrinology, Diabetes & Metabolism; Visit Provider Internal Medicine
DX: I48.20 Chronic atrial fibrillation, unspecified (principal)
CPT/HCPCS: 36415; 80053; 80186; 82306; 83735; 83970; 84100; 84439; 84443; 85610

== ENCOUNTER → 2021-09-27 10:21 | Outpatient (CLI) | payer MEDICARE, SELFPAY ==
--- NOTE | ~2021-09-27 | US_ITS ---
EXAMINATION: US thyroid DATE: 09/27/2021 10:52 INDICATION: Thyroid nodule. Endocrine disorder, unspecified. TECHNIQUE: Multiple ultrasound images of the thyroid were obtained. COMPARISON: Ultrasound 12/19/2019 FINDINGS: The right thyroid lobe measures 3.7 x 2.1 x 1.3 cm. The left thyroid lobe measures 3.5 x 1.2 x 1.1 c m. There are two 3 mm nodules in right thyroid lobe. IMPRESSION: 1. Small thyroid nodules, likely not clinically significant. No follow-up is needed. Reviewed, dictated and finalized at location A. IMPRESSION: 1. Small thyroid nodules, likely not clinically significant. No follow-up is ne eded.
== END ==
PROVIDERS: PCP Internal Medicine; Visit Provider Internal Medicine
DX: E04.2 Nontoxic multinodular goiter (principal)
CPT/HCPCS: 76536

== ENCOUNTER 2021-12-16 16:52 | Outpatient (RCR) | payer MEDICARE, SELFPAY ==
[2021-09-19 17:07] LABS: INR 3.2; Prothrombin Time 31.7 Seconds (11.1-14.7)
[2021-10-04 16:55] LABS: INR 3.2
[2021-10-24 17:43] LABS: INR 2.6; Prothrombin Time 27.3 Seconds (11.1-14.7)
[2021-11-08 12:19] LABS: Prothrombin Time 30.2 Seconds (11.1-14.7)
[2021-12-16 17:41] LABS: INR 3.3; Prothrombin Time 32.6 Seconds (11.1-14.7)
== END 2021-12-18 23:59 | disposition home or self-care (01) ==
LOC: ANHLAB 16:52
PROVIDERS: PCP Internal Medicine; Visit Provider Internal Medicine
DX: I48.20 Chronic atrial fibrillation, unspecified (principal)
CPT/HCPCS: 36415; 85610

== ENCOUNTER 2021-12-16 16:54 | Outpatient (CLI) | payer MEDICARE, SELFPAY ==
[2021-12-16 17:45] LABS: Alanine Aminotransferase 17 U/L (6-35); Albumin Level 4.3 g/dL (3.5-5.1); Alkaline Phosphatase 83 U/L (38-126); Anion Gap 11 mmol/L (8-16); Aspartate Amino Transferase 24 U/L (14-36); Bilirubin,Total 0.3 mg/dL (0.2-1.3); Blood Urea Nitrogen 23 mg/dL (7-17); Calcium 8.8 mg/dL (8.4-10.2); Carbon Dioxide 21 mmol/L (22-30); Chloride 109 mmol/L (98-107); Cholesterol 178 mg/dL (0-200); Estimated Glomerular Filt Rate 43; Glucose 108 mg/dL (65-110); HDL Direct 70 mg/dL; Sodium 141 mmol/L (137-145); Triglycerides 143 mg/dL (<150)
[2021-12-16 17:56] LABS: LDL Cholesterol Direct 52 mg/dL
[2021-12-16 18:37] LABS: Free T4 Free Thyroxine 1.29 ng/mL (0.78-2.19); Vitamin D 25 Hydroxy 98.2 ng/mL
[2021-12-16 21:54] LABS: Hemoglobin A1C 5.4 % (<5.7)
== END 2021-12-16 16:55 | disposition home or self-care (01) ==
PROVIDERS: PCP Internal Medicine; Visit Provider Internal Medicine
DX: R73.03 Prediabetes (principal); E55.9 Vitamin D deficiency, unspecified; E78.2 Mixed hyperlipidemia; Z79.899 Other long term (current) drug therapy; Z13.29 Encounter for screening for other suspected endocrine disorder; I10 Essential (primary) hypertension
CPT/HCPCS: 36415; 80053; 80061; 82306; 83036; 84439; 84443; 85610

== ENCOUNTER 2022-01-16 17:19 | Outpatient (RCR) | payer MEDICARE, SELFPAY ==
[2021-12-23 17:18] LABS: Prothrombin Time 30.1 Seconds (11.1-14.7)
[2022-01-16 18:16] LABS: INR 3.6; Prothrombin Time 34.5 Seconds (11.1-14.7)
== END 2022-03-23 23:59 | disposition home or self-care (01) ==
LOC: ANHIMG 17:19
PROVIDERS: PCP Internal Medicine; Visit Provider Internal Medicine
DX: I48.20 Chronic atrial fibrillation, unspecified (principal)
CPT/HCPCS: 36415; 85610

== ENCOUNTER 2022-03-21 11:42 | Outpatient (RCR) | payer MEDICARE, SELFPAY ==
[2022-01-24 14:24] LABS: INR 2.5; Prothrombin Time 25.9 Seconds (11.1-14.7)
[2022-02-03 17:29] LABS: INR 1.9; Prothrombin Time 21.4 Seconds (11.1-14.7)
[2022-02-20 16:55] LABS: Prothrombin Time 30.2 Seconds (11.1-14.7)
[2022-03-21 12:13] LABS: INR 2.1; Prothrombin Time 22.6 Seconds (11.1-14.7)
== END 2022-04-24 23:59 | disposition home or self-care (01) ==
LOC: ANHLAB 11:42
PROVIDERS: PCP Internal Medicine; Visit Provider Internal Medicine
DX: Z51.81 Encounter for therapeutic drug level monitoring (principal); I48.20 Chronic atrial fibrillation, unspecified; Z86.73 Personal history of transient ischemic attack (TIA), and cerebral infarction without residual deficits
CPT/HCPCS: 36415; 85610

== ENCOUNTER 2022-04-18 10:43 | Outpatient (CLI) | payer MEDICARE, SELFPAY ==
--- NOTE | ~2022-04-18 | XR_ITS ---
EXAMINATION: XR hip BI 2V w AP pelvis DATE: 04/18/2022 11:18 INDICATION: Myalgia TECHNIQUE: AP view the pelvis and two views of each hip were obtained. COMPARISON: 11/03/2013 FINDINGS: Bone alignment is normal. There is no fracture. Calcified atherosclerosis is noted. There i s mild osteoarthritis of the hips. IMPRESSION: 1. Mild osteoarthritis of the hips. Reviewed, dictated and finalized at location A. SUPPORT MAKER
== END 2022-04-18 10:44 | disposition home or self-care (01) ==
LOC: ANHIMG 10:46
PROVIDERS: PCP Internal Medicine; Visit Provider Internal Medicine
DX: M16.0 Bilateral primary osteoarthritis of hip (principal); M79.18 Myalgia, other site
CPT/HCPCS: 73521

== ENCOUNTER 2022-05-01 17:19 | Outpatient (CLI) | payer MEDICARE, SELFPAY ==
[2022-05-01 18:37] LABS: Alanine Aminotransferase 26 U/L (6-35); Albumin Level 4.4 g/dL (3.5-5.1); Alkaline Phosphatase 180 U/L (38-126); Anion Gap 6 mmol/L (8-16); Aspartate Amino Transferase 40 U/L (14-36); Bilirubin,Total 0.3 mg/dL (0.2-1.3); Blood Urea Nitrogen 20 mg/dL (7-17); Calcium 8.6 mg/dL (8.4-10.2); Carbon Dioxide 27 mmol/L (22-30); Chloride 108 mmol/L (98-107); Cholesterol 188 mg/dL (0-200); Estimated Glomerular Filt Rate 53; Glucose 102 mg/dL (65-110); HDL Direct 70 mg/dL; Potassium 4.7 mmol/L (3.4-5.0); Sodium 141 mmol/L (137-145); Triglycerides 226 mg/dL (<150)
[2022-05-01 18:39] LABS: Hemoglobin A1C 5.7 % (<5.7)
[2022-05-01 18:47] LABS: LDL Cholesterol Direct 58 mg/dL
[2022-05-01 19:16] LABS: Vitamin D 25 Hydroxy 93.7 ng/mL
== END 2022-05-01 17:20 | disposition home or self-care (01) ==
LOC: ANHLAB 17:21
PROVIDERS: PCP Internal Medicine; Visit Provider Internal Medicine
DX: E78.2 Mixed hyperlipidemia (principal); I10 Essential (primary) hypertension; E55.9 Vitamin D deficiency, unspecified; R73.03 Prediabetes
CPT/HCPCS: 36415; 80053; 80061; 82306; 83036; 85610

== ENCOUNTER 2022-05-27 17:02 | Outpatient (CLI) | payer MEDICARE, SELFPAY ==
[2022-05-27 17:25] LABS: Basophils Absolute Auto 0.1 K/mm3 (0.0-0.1); Basophils Percent Auto 0.8 % (0.2-1.2); Eosinophils Absolute Auto 0.4 K/mm3 (0-0.3); Eosinophils Percent Auto 4.9 % (0-4.4); Hematocrit 36.9 % (37.0-47.0); Hemoglobin 11.7 g/dL (12.0-15.0); Immature Granulocyte Absolute 0.01 K/mm3 (0.00-0.031); Immature Granulocyte Percent A 0.1 % (0-0.5); Lymphocytes Percent Auto 23.6 % (18.3-44.2); Mean Corpuscular HGB Conc 31.7 g/dl (32-36); Mean Corpuscular Hemoglobin 23.3 pg (26-34); Mean Corpuscular Volume 73.4 fl (80-100); Mean Platelet Volume 10.3 fl (7.4-10.4); Monocytes Percent Auto 13.5 % (2.6-8.5); Neutrophils Absolute Auto 4.1 K/mm3 (1.3-6.7); Neutrophils Percent Auto 57.1 % (45.5-73.1); Platelet Count Result 240 k/mm3 (150-375); Red Blood Count 5.03 M/mm3 (4.2-5.4); Red Cell Distribution Width 15.5 % (11.5-14.5); White Blood Count 7.2 K/mm3 (4.5-10.0)
[2022-05-27 17:36] LABS: Alanine Aminotransferase 19 U/L (6-35); Albumin Level 4.2 g/dL (3.5-5.1); Alkaline Phosphatase 98 U/L (38-126); Anion Gap 10 mmol/L (8-16); Aspartate Amino Transferase 27 U/L (14-36); Bilirubin,Total 0.2 mg/dL (0.2-1.3); Blood Urea Nitrogen 28 mg/dL (7-17); Calcium 8.4 mg/dL (8.4-10.2); Carbon Dioxide 22 mmol/L (22-30); Chloride 111 mmol/L (98-107); Estimated Glomerular Filt Rate 48; Glucose 110 mg/dL (65-110); Potassium 4.7 mmol/L (3.4-5.0); Sodium 143 mmol/L (137-145)
[2022-05-27 18:02] LABS: SARS-CoV-2 RNA PCR Negative
[2022-05-27 18:35] LABS: Platelet Estimate Adequate (Adequate); Schistocytes None Seen (NORMAL)
[2022-05-27 18:36] LABS: Anisocytosis 1+ (NORMAL); Hypochromasia 1+ (NORMAL)
== END 2022-05-27 17:03 | disposition home or self-care (01) ==
PROVIDERS: PCP Internal Medicine; Visit Provider Internal Medicine Cardiovascular Disease
DX: Z01.812 Encounter for preprocedural laboratory examination (principal); Z20.822 Contact with and (suspected) exposure to COVID-19
CPT/HCPCS: 36415; 80053; 85025; 85610; U0003; U0005

== ENCOUNTER 2022-07-24 17:02 | Outpatient (RCR) | payer MEDICARE, SELFPAY ==
[2022-05-01 18:22] LABS: INR 2.3; Prothrombin Time 24.7 Seconds (11.1-14.7)
[2022-05-22 18:29] LABS: INR 2.1; Prothrombin Time 22.6 Seconds (11.1-14.7)
[2022-06-03 17:28] LABS: INR 1.8; Prothrombin Time 20.4 Seconds (11.1-14.7)
[2022-06-13 14:52] LABS: INR 4.5; Prothrombin Time 41.5 Seconds (11.1-14.7)
[2022-06-26 17:37] LABS: INR 3.8; Prothrombin Time 36.3 Seconds (11.1-14.7)
[2022-07-03 17:36] LABS: INR 2.2; Prothrombin Time 24.1 Seconds (11.1-14.7)
[2022-07-24 17:38] LABS: INR 2.4; Prothrombin Time 25.7 Seconds (11.1-14.7)
== END 2022-07-30 23:59 | disposition home or self-care (01) ==
LOC: ANHLAB 17:02
PROVIDERS: PCP Internal Medicine; Visit Provider Internal Medicine
DX: I48.20 Chronic atrial fibrillation, unspecified (principal)
CPT/HCPCS: 36415; 85610

== ENCOUNTER 2022-09-18 16:57 | Outpatient (CLI) | payer MEDICARE, SELFPAY ==
[2022-09-18 17:22] LABS: Basophils Percent Auto 0.4 % (0.2-1.2); Eosinophils Absolute Auto 0.5 K/mm3 (0-0.3); Eosinophils Percent Auto 6.3 % (0-4.4); Hematocrit 34.2 % (37.0-47.0); Hemoglobin 10.6 g/dL (12.0-15.0); Immature Granulocyte Absolute 0.02 K/mm3 (0.00-0.031); Immature Granulocyte Percent A 0.3 % (0-0.5); Lymphocytes Absolute Auto 1.27 K/mm3 (0.9-3.2); Lymphocytes Percent Auto 17.7 % (18.3-44.2); Mean Corpuscular Hemoglobin 23.3 pg (26-34); Mean Corpuscular Volume 75.3 fl (80-100); Mean Platelet Volume 10.2 fl (7.4-10.4); Monocytes Percent Auto 13.2 % (2.6-8.5); Neutrophils Absolute Auto 4.5 K/mm3 (1.3-6.7); Neutrophils Percent Auto 62.1 % (45.5-73.1); Platelet Count Result 259 k/mm3 (150-375); Red Blood Count 4.54 M/mm3 (4.2-5.4); Red Cell Distribution Width 15.9 % (11.5-14.5); White Blood Count 7.2 K/mm3 (4.5-10.0)
[2022-09-18 18:55] LABS: Alanine Aminotransferase 29 U/L (6-35); Albumin Level 4.2 g/dL (3.5-5.1); Alkaline Phosphatase 100 U/L (38-126); Anion Gap 8 mmol/L (8-16); Aspartate Amino Transferase 33 U/L (14-36); Bilirubin,Total 0.4 mg/dL (0.2-1.3); Blood Urea Nitrogen 22 mg/dL (7-17); Calcium 8.5 mg/dL (8.4-10.2); Carbon Dioxide 22 mmol/L (22-30); Chloride 111 mmol/L (98-107); Cholesterol 156 mg/dL (0-200); Estimated Glomerular Filt Rate 48; Glucose 104 mg/dL (65-110); HDL Direct 64 mg/dL; Potassium 5.3 mmol/L (3.4-5.0); Sodium 141 mmol/L (137-145); Triglycerides 226 mg/dL (<150)
[2022-09-18 19:06] LABS: LDL Cholesterol Direct 55 mg/dL
[2022-09-18 20:29] LABS: Free T4 Free Thyroxine 1.41 ng/mL (0.78-2.19); Vitamin D 25 Hydroxy 60.3 ng/mL
[2022-09-18 21:51] LABS: Hemoglobin A1C 5.4 % (<5.7)
== END 2022-09-18 16:58 | disposition home or self-care (01) ==
LOC: ANHLAB 16:58
PROVIDERS: PCP Internal Medicine; Visit Provider Internal Medicine
DX: R73.03 Prediabetes (principal); I10 Essential (primary) hypertension; Z79.899 Other long term (current) drug therapy; Z13.29 Encounter for screening for other suspected endocrine disorder; E78.2 Mixed hyperlipidemia; E55.9 Vitamin D deficiency, unspecified
CPT/HCPCS: 36415; 80053; 80061; 82306; 83036; 84439; 84443; 85025; 85610

== ENCOUNTER 2022-10-09 15:46 | Outpatient (RCR) | payer MEDICARE, SELFPAY ==
[2022-08-07 17:43] LABS: Prothrombin Time 30.2 Seconds (11.1-14.7)
[2022-08-19 17:39] LABS: INR 2.8; Prothrombin Time 28.5 Seconds (11.1-14.7)
[2022-09-18 17:32] LABS: INR 2.7; Prothrombin Time 31.2 Seconds (11.1-14.7)
[2022-10-09 16:23] LABS: INR 3.2; Prothrombin Time 35.6 Seconds (11.1-14.7)
== END 2022-11-05 23:59 | disposition home or self-care (01) ==
LOC: ANHLAB 15:46
PROVIDERS: PCP Internal Medicine; Visit Provider Internal Medicine
DX: Z51.81 Encounter for therapeutic drug level monitoring (principal); Z86.73 Personal history of transient ischemic attack (TIA), and cerebral infarction without residual deficits; Z98.890 Other specified postprocedural states; Z79.01 Long term (current) use of anticoagulants
CPT/HCPCS: 36415; 85610

== ENCOUNTER 2022-10-09 15:47 | Outpatient (CLI) | payer MEDICARE, SELFPAY ==
[2022-10-09 17:30] LABS: Iron 82 ug/dL (37-170)
[2022-10-09 17:40] LABS: Percent Iron Saturation 27 % (20-50)
[2022-10-09 20:37] LABS: Folic Acid > 20.0 ng/mL (2.76->20); Vitamin B12 > 1000.0 pg/mL (239-931)
== END 2022-10-09 15:48 | disposition home or self-care (01) ==
LOC: ANHLAB 15:48
PROVIDERS: PCP Internal Medicine; Visit Provider Internal Medicine
DX: E53.8 Deficiency of other specified B group vitamins (principal); D64.9 Anemia, unspecified
CPT/HCPCS: 36415; 82607; 82728; 82746; 83540; 83550; 85610

== ENCOUNTER 2023-01-29 17:00 | Outpatient (RCR) | payer MEDICARE, SELFPAY ==
[2022-11-06 18:06] LABS: INR 2.5; Prothrombin Time 28.7 Seconds (11.1-14.7)
[2022-12-11 11:11] LABS: INR 2.9
[2023-01-08 17:30] LABS: Prothrombin Time 42.8 Seconds (11.1-14.7)
[2023-01-29 17:38] LABS: INR 2.9; Prothrombin Time 32.4 Seconds (11.1-14.7)
== END 2023-02-04 23:59 | disposition home or self-care (01) ==
LOC: ANHLAB 17:00
PROVIDERS: PCP Internal Medicine; Visit Provider Internal Medicine
DX: Z51.81 Encounter for therapeutic drug level monitoring (principal); Z86.73 Personal history of transient ischemic attack (TIA), and cerebral infarction without residual deficits; Z98.890 Other specified postprocedural states; Z79.01 Long term (current) use of anticoagulants
CPT/HCPCS: 36415; 85610

== ENCOUNTER 2023-03-05 17:01 | Outpatient (CLI) | payer MEDICARE, SELFPAY ==
[2023-03-05 17:49] LABS: Basophils Percent Auto 0.6 % (0.2-1.2); Eosinophils Absolute Auto 0.6 K/mm3 (0-0.3); Eosinophils Percent Auto 7.8 % (0-4.4); Hematocrit 31.9 % (37.0-47.0); Immature Granulocyte Absolute 0.02 K/mm3 (0.00-0.031); Immature Granulocyte Percent A 0.3 % (0-0.5); Lymphocytes Absolute Auto 1.07 K/mm3 (0.9-3.2); Lymphocytes Percent Auto 15.1 % (18.3-44.2); Mean Corpuscular HGB Conc 31.3 g/dl (32-36); Mean Corpuscular Hemoglobin 23.8 pg (26-34); Mean Corpuscular Volume 75.8 fl (80-100); Mean Platelet Volume 9.2 fl (7.4-10.4); Monocytes Absolute Auto 0.9 K/mm3 (0.1-0.6); Monocytes Percent Auto 12.3 % (2.6-8.5); Neutrophils Absolute Auto 4.5 K/mm3 (1.3-6.7); Neutrophils Percent Auto 63.9 % (45.5-73.1); Platelet Count Result 232 k/mm3 (150-375); Red Blood Count 4.21 M/mm3 (4.2-5.4); Red Cell Distribution Width 16.6 % (11.5-14.5); White Blood Count 7.1 K/mm3 (4.5-10.0)
[2023-03-05 18:02] LABS: Alanine Aminotransferase 16 U/L (6-35); Albumin Level 3.9 g/dL (3.5-5.1); Alkaline Phosphatase 94 U/L (38-126); Anion Gap 5 mmol/L (8-16); Aspartate Amino Transferase 26 U/L (14-36); Bilirubin,Total 0.4 mg/dL (0.2-1.3); Blood Urea Nitrogen 28 mg/dL (7-17); Carbon Dioxide 23 mmol/L (22-30); Chloride 109 mmol/L (98-107); Cholesterol 157 mg/dL (0-200); Estimated Glomerular Filt Rate 43; Glucose 102 mg/dL (65-110); HDL Direct 74 mg/dL; Potassium 4.7 mmol/L (3.4-5.0); Sodium 137 mmol/L (137-145); Triglycerides 152 mg/dL (<150)
[2023-03-05 18:13] LABS: LDL Cholesterol Direct 58 mg/dL
[2023-03-05 19:38] LABS: Free T4 Free Thyroxine 1.37 ng/mL (0.78-2.19); Vitamin D 25 Hydroxy 56.3 ng/mL
[2023-03-06 04:39] LABS: Hemoglobin A1C 5.2 % (<5.7)
== END 2023-03-05 17:02 | disposition home or self-care (01) ==
LOC: ANHLAB 17:03
PROVIDERS: PCP Internal Medicine; Visit Provider Internal Medicine
DX: E55.9 Vitamin D deficiency, unspecified (principal); Z79.899 Other long term (current) drug therapy; Z13.29 Encounter for screening for other suspected endocrine disorder; R73.03 Prediabetes; E78.2 Mixed hyperlipidemia; I10 Essential (primary) hypertension
CPT/HCPCS: 36415; 80053; 80061; 82306; 83036; 84439; 84443; 85025; 85610

== ENCOUNTER 2023-04-02 08:23 | Outpatient (CLI) | payer MEDICARE, SELFPAY ==
[2023-04-02 09:13] LABS: Basophils Percent Auto 0.6 % (0.2-1.2); Eosinophils Absolute Auto 0.4 K/mm3 (0-0.3); Eosinophils Percent Auto 6.6 % (0-4.4); Hematocrit 32.5 % (37.0-47.0); Immature Granulocyte Absolute 0.02 K/mm3 (0.00-0.031); Immature Granulocyte Percent A 0.3 % (0-0.5); Lymphocytes Absolute Auto 1.11 K/mm3 (0.9-3.2); Lymphocytes Percent Auto 17.1 % (18.3-44.2); Mean Corpuscular HGB Conc 30.8 g/dl (32-36); Mean Corpuscular Hemoglobin 23.4 pg (26-34); Mean Corpuscular Volume 76.1 fl (80-100); Mean Platelet Volume 8.6 fl (7.4-10.4); Monocytes Absolute Auto 0.8 K/mm3 (0.1-0.6); Monocytes Percent Auto 11.9 % (2.6-8.5); Neutrophils Absolute Auto 4.1 K/mm3 (1.3-6.7); Neutrophils Percent Auto 63.5 % (45.5-73.1); Platelet Count Result 209 k/mm3 (150-375); Red Blood Count 4.27 M/mm3 (4.2-5.4); Red Cell Distribution Width 15.9 % (11.5-14.5); White Blood Count 6.5 K/mm3 (4.5-10.0)
[2023-04-02 09:17] LABS: Anion Gap 9 mmol/L (8-16); Blood Urea Nitrogen 23 mg/dL (7-17); Calcium 8.5 mg/dL (8.4-10.2); Carbon Dioxide 22 mmol/L (22-30); Chloride 112 mmol/L (98-107); Estimated Glomerular Filt Rate 48; Glucose 106 mg/dL (65-110); Potassium 4.7 mmol/L (3.4-5.0); Sodium 143 mmol/L (137-145)
[2023-04-02 09:22] LABS: INR 2.3; Prothrombin Time 27.2 Seconds (11.1-14.7)
== END 2023-04-02 08:24 | disposition home or self-care (01) ==
LOC: ANHLAB 08:26
PROVIDERS: PCP Internal Medicine; Visit Provider Internal Medicine
DX: D64.9 Anemia, unspecified (principal); D56.9 Thalassemia, unspecified; Z79.01 Long term (current) use of anticoagulants; I48.20 Chronic atrial fibrillation, unspecified; Z79.899 Other long term (current) drug therapy
CPT/HCPCS: 36415; 80048; 85025; 85610

== ENCOUNTER 2023-04-21 09:36 | Outpatient (CLI) | payer MEDICARE, SELFPAY ==
--- NOTE | ~2023-04-21 | US_ITS ---
EXAMINATION:US venous doppler LE LT INDICATION:Left leg pain TECHNIQUE: Multiple grayscale, color flow and Doppler images of the left lower extremity deep venous systems were obtained and reviewed. COMPARISON:No prior studies for comparison. FINDINGS: The common femoral, superficial femoral and popliteal veins demonstrate normal respiratory variation, augmentation and compressibility. Color flow is also seen within the posterior tibial, pe roneal, greater saphenous and profunda veins. IMPRESSION: 1: No lower extremity deep venous thrombosis. Reviewed, dictated and finalized at location L. COATER
== END 2023-04-21 09:37 | disposition home or self-care (01) ==
PROVIDERS: PCP Internal Medicine; Visit Provider Internal Medicine
DX: I89.0 Lymphedema, not elsewhere classified (principal); M79.89 Other specified soft tissue disorders
CPT/HCPCS: 93971

== ENCOUNTER 2023-04-30 17:08 | Outpatient (RCR) | payer MEDICARE, SELFPAY ==
[2023-02-12 17:45] LABS: INR 3.6
[2023-02-19 18:26] LABS: INR 2.8; Prothrombin Time 31.6 Seconds (11.1-14.7)
[2023-03-05 18:07] LABS: INR 2.7
[2023-04-30 19:18] LABS: INR 2.3
== END 2023-05-13 23:59 | disposition home or self-care (01) ==
LOC: ANHLAB 17:08
PROVIDERS: PCP Internal Medicine; Visit Provider Internal Medicine
DX: Z51.81 Encounter for therapeutic drug level monitoring (principal); Z79.01 Long term (current) use of anticoagulants
CPT/HCPCS: 36415; 85610

== ENCOUNTER 2023-06-15 16:57 | Outpatient (CLI) | payer MEDICARE, SELFPAY ==
[2023-06-15 18:08] LABS: Anion Gap 7 mmol/L (8-16); Blood Urea Nitrogen 23 mg/dL (7-17); Calcium 8.5 mg/dL (8.4-10.2); Carbon Dioxide 23 mmol/L (22-30); Chloride 110 mmol/L (98-107); Cholesterol 126 mg/dL (0-200); Estimated Glomerular Filt Rate 48; Glucose 108 mg/dL (65-110); HDL Direct 61 mg/dL; Sodium 140 mmol/L (137-145); Triglycerides 102 mg/dL (<150)
[2023-06-15 18:18] LABS: LDL Cholesterol Direct 50 mg/dL
== END 2023-06-15 16:58 | disposition home or self-care (01) ==
PROVIDERS: PCP Internal Medicine; Visit Provider Internal Medicine
DX: E78.2 Mixed hyperlipidemia (principal); I10 Essential (primary) hypertension
CPT/HCPCS: 36415; 80048; 80061; 85610

== ENCOUNTER 2023-07-11 11:03 | Inpatient (IN) | payer MEDICARE, SELFPAY ==
[2023-07-11] VITALS (10 sets, daily range): BP systolic 150–197; BP diastolic 53–70; PULSE 52–70; RESP 13–22; TEMP 35.7–36.8; O2SAT 92–95; BMI 19.8
--- NOTE | ~2023-07-11 | XR_ITS ---
XR chest 1V portable 07/11/2023 12:27 Indication: Left-sided pneumonia Procedure: AP portable chest Comparison: Comparison to multiple prior studies sequentially, with oldest reviewed study dated 07/2010. Findings: Status post median sternotomy for CABG. Cardiomegaly. Mild interstitial edema. No significa nt effusion or pneumothorax. Impression: 1: Cardiomegaly with mild interstitial edema. Reviewed, dictated and finalized at location A. RUMENT MECHANIC Impression: 1: Cardiomegaly with mild interstitial edema.
--- NOTE | ~2023-07-11 | XR_ITS ---
XR shoulder LT min 2V 07/11/2023 11:50 Indication: Left shoulder pain after fall Procedure: 4 views left shoulder Comparison: No prior studies for comparison. Findings: Osteopenia. 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 No acute fracture or traumatic malalig nment. No foreign bodies. No focal soft tissue abnormality. There is consolidation of the left lower lung, suspicious for pneumonia. Impression: 1: No acute fracture. 2: Left basilar airspace consolidation, suspicious for pneumonia. Reviewed, dictated and finalized at location A. LOGIST Impression: 1: No acute fracture. 2: Left basilar airspace consolidation, suspicious for pneumonia.
--- NOTE | ~2023-07-11 | US_ITS ---
EXAMINATION: US venous doppler [facility] DATE: 07/12/2023 16:19 INDICATION: Bilateral lower extremity edema . TECHNIQUE: Grayscale images without and with compression and Doppler images of the bilateral lower ex tremity veins were obtained. COMPARISON: None FINDINGS: The right common femoral vein, profunda (deep) femoral vein, femoral vein, popliteal vein, peroneal v ein, posterior tibial veins, gastrocnemius vein, and greater saphenous vein are patent. The left common femoral vein, profunda (deep) femoral vein, femoral vein, popliteal vein, peroneal v ein, posterior tibial veins, gastrocnemius vein, and greater saphenous vein are patent. IMPRESSION: Patent bilateral lower extremity veins. No evidence of deep venous thrombosis. Reviewed, dictated and finalized at location K. RNET MARKETING ANALYST
--- NOTE | ~2023-07-11 | CT_ITS ---
EXAMINATION: CT brain wo con DATE: 07/11/2023 15:18 INDICATION: worsening L leg weakness . TECHNIQUE: Computed tomography (CT) of the head was performed without intravenous contrast. The mA wa s adjusted according to patient size. Iterative reconstruction technique was employed. The dose-lengt h product was 529.67 mGy-cm. COMPARISON: 02/22/2016. FINDINGS: No acute intracranial hemorrhage or extra-axial fluid collection. No hydrocephalus, mass, or herniation. No acute ischemic infarct. Unremarkable dural venous sinus attenuation. No acute osseous abnormality. Opacification of the bilateral frontal, right maxillary and anterior ethmoid air cells. Left maxillar y mucosal thickening. The remaining aerated spaces are clear. Moderate atrophy and chronic white matter change. Atherosclerotic intracranial calcification. Bilater al lens replacements. Old right MCA territory infarct. Focal old right cerebellar infarct IMPRESSION: No acute intracranial process. Reviewed, dictated and finalized at location K. L ENGINEERING ASSISTANT
--- NOTE | 2023-07-11 12:22 | ED.FALL ---
HPI - Fall General Chief Complaint: Fall Stated Complaint: fall Time Seen by Provider: 07/11/23 12:01 History of Present Illness HPI Narrative: patient is an 78-year-old female with a history of mitral valve repair on Coumadin, CVA with left-sided weakness, hypertension, hyperlipidemia presenting after a fall. Patient lives alone in an assisted living facility. Patient's daughter states that the patient has been falling more frequently over the last several weeks. Patient states that her left leg which is chronically weak from her prior stroke has been weaker than normal. States that it has been giving at out from underneath her. States that she fell twice in the last 2 days and she landed on her left shoulder both times. She did not strike her head or lose consciousness. States that she only has pain in her left shoulder. Denies headache, neck or back pain, chest pain, shortness of breath, cough, abdominal pain, nausea vomiting, diarrhea, dysuria, leg swelling. Related Data Home Medications Medication Instructions Recorded Confirmed cholecalciferol (vitamin D3) 125 125 mcg PO DAILY 02/13/23 07/11/23 mcg (5,000 unit) capsule mecobalamin (vitamin B12) 1,000 1,000 mcg sublingual DAILY 02/13/23 07/11/23 mcg disintegrating tablet,sublingual ferrous sulfate 325 mg (65 mg 325 mg PO BID 03/06/23 07/11/23 iron) tablet Allergies Allergy/AdvReac Type Severity Reaction Status Date / Time No Known Allergies Allergy Verified 07/11/23 12:04 Review of Systems Review of Systems: All systems reviewed & are unremarkable except as noted in HPI and below PMFSH Past Medical History Medical History Anemia Aortic stenosis Benign essential hypertension Cerebrovascular accident (1991) Attributed to thrombus formation on mitral valve; residual left-sided weakness. Chronic anticoagulation Chronic kidney disease, stage 3 Hearing loss Hyperlipidemia Osteoporosis Paroxysmal atrial fibrillation Pre-diabetes Rash Seizures Seizure following stroke in 1991 though non since that time, remains on Dilantin. Thalassemia Vitamin B12 deficiency Vitamin D deficiency Surgical History Surgical History History of permanent cardiac pacemaker placement Status post mitral valve annuloplasty Family History Family History Mother Cerebrovascular accident Father Hypertension Social History Social History Social History: Surrogate medical decision maker: Tatiana Way, daughter. 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 Spiritual care concerns: No Exam Narrative: GENERAL: Well-appearing and in no acute distress. HEAD: Normocephalic, atraumatic. EYES: PERRLA and EOMI. ENT: Mucous membranes moist. NECK: Supple. CHEST: Clear to auscultation. No respiratory distress. HEART: Bradycardic, regular rhythm ABDOMEN: Soft, nontender, nondistended EXTREMITIES: Normal range of motion. No edema. left leg in leg brace w/ trace edema; small ecchymosis posterior left shoulder SKIN: Warm, dry, no rash. NEURO: Alert and oriented x3. +left sided weakness from prior CVA, at baseline PSYCH: Normal mood and affect. Course Vital Signs Vital signs: Vital Signs Temperature 96.7 F
[2023-07-11 12:47] LABS: Basophils Percent Auto 0.3 % (0.2-1.2); Eosinophils Absolute Auto 0.1 K/mm3 (0-0.3); Eosinophils Percent Auto 1.1 % (0-4.4); Hematocrit 32.4 % (37.0-47.0); Hemoglobin 10.3 g/dL (12.0-15.0); Immature Granulocyte Absolute 0.04 K/mm3 (0.00-0.031); Immature Granulocyte Percent A 0.4 % (0-0.5); Lymphocytes Absolute Auto 0.71 K/mm3 (0.9-3.2); Mean Corpuscular HGB Conc 31.8 g/dl (32-36); Mean Corpuscular Hemoglobin 23.7 pg (26-34); Mean Corpuscular Volume 74.5 fl (80-100); Mean Platelet Volume 8.7 fl (7.4-10.4); Monocytes Absolute Auto 0.9 K/mm3 (0.1-0.6); Neutrophils Absolute Auto 8.3 K/mm3 (1.3-6.7); Neutrophils Percent Auto 82.2 % (45.5-73.1); Platelet Count Result 257 k/mm3 (150-375); Red Blood Count 4.35 M/mm3 (4.2-5.4); Red Cell Distribution Width 16.5 % (11.5-14.5); White Blood Count 10.1 K/mm3 (4.5-10.0)
[2023-07-11 12:59] LABS: Anion Gap 9 mmol/L (8-16); Blood Urea Nitrogen 22 mg/dL (7-17); Calcium 8.9 mg/dL (8.4-10.2); Carbon Dioxide 23 mmol/L (22-30); Chloride 108 mmol/L (98-107); Estimated Glomerular Filt Rate 48; Glucose 130 mg/dL (65-110); Sodium 140 mmol/L (137-145)
[2023-07-11 13:27] LABS: Hypochromasia 1+ (NORMAL); Platelet Estimate Adequate (Adequate); Schistocytes None Seen (NORMAL); Target Cells 1+ (NORMAL)
[2023-07-11 14:06] LABS: Appearance Urine Turbid (Clear); Bacteria Urine 4+ /hpf; Bilirubin Urine Negative (Negative); Blood Urine Negative (Negative); Color Urine Yellow (Yellow); Glucose Urine UA Negative (Negative); Hyaline Casts Urine Present /lpf; Ketones Urine Trace mg/dL (Negative); Leukocyte Esterase Ur 1+ LEU/UL (Negative); Need Manual Microscopic Reviewed; Nitrate Urine Negative (Negative); Protein Urine 3+ mg/dL (Negative); RBC Urine 0-2 /hpf (0-2); Specific Grav Ur 1.023 (1.001-1.035); Squamous Epithelial Cell Urine Many /hpf (Few); pH Urine 5.5 (5.0-9.0)
[2023-07-11 14:09] LABS: Add Urine Microscopic? YES
--- NOTE | 2023-07-11 15:00 | PC.NURSE ---
Attempted to stand pt up and place her in a wheelchair and take to exit after going over discharge instructions. Upon standing the pt upright she had trouble getting her footing with her left foot. Pt reported to this RN that her left leg isn't working upon questioning what the pt meant, she stated that she could not make it walk . Pt placed back into bed, EDP made aware and she placed order for CT of brain. Pt and pt family made aware of change to POC
--- NOTE | 2023-07-11 17:12 | ECG_ITS ---
Measurements Intervals [place] Rate: 60 P: 144 MA: 162 QRS: 53 QRSD: 76 T: 167 QT: 438 QTc: 441 Interpretive Statements SINUS RHYTHM BASELINE ARTIFACT ST DEVIATION AND MODERATE T-WAVE ABNORMALITY, CONSIDER LATERAL ISCHEMIA [-0.1+ mV T WAVE IN I/aVL/V5/V6] ST DEVIATION AND MODERATE T-WAVE ABNORMALITY, CONSIDER INFERIOR ISCHEMIA [-0.1+ mV T WAVE IN II/aVF] ABNORMAL ECG NO PREVIOUS ECG AVAILABLE FOR COMPARISON Electronically Signed On 07-12-2023 18:03:10 DUAL HOSE CEMENTER by Mark Owen M.D.
--- NOTE | 2023-07-11 18:30 | ADMGEN ---
This patient, Kait Skaggs, was admitted to 3 Med Surg Room 317-01 @ 1830. Patient/family oriented to hospital policies and general routines including ID bracelet, bed and alarms, visiting hours, pain management, procedures, bathroom and other care routines, personal items, smoking policy, room service/diet, and visiting hours. Information on how to activate the Rapid Response Team has been discussed. Patient/Family are encouraged to report perceived risks to care and to ask questions if they do not understand what they are told or what they should do.
[2023-07-11 18:32] LABS: INR 4.9; Prothrombin Time 50.2 Seconds (11.1-14.7)
[2023-07-11 18:33] LABS: Partial Thromboplastin Time 70.6 SECONDS (22.3-36.8)
[2023-07-11 18:43] LABS: NT Pro B Type Natriuretic Pept 6000 pg/mL (19.9-100); Troponin I 0.023 ng/mL (0.000-0.034)
--- NOTE | 2023-07-11 18:55 | PM.IMHP ---
H&P: HPI History of Present Illness Date/Time: 07/11/23 19:30 Chief Complaint: Left shoulder pain after fall. Narrative: This is a very pleasant 78-year-old female with with history of stroke and left-sided weakness, rheumatic fever status post mitral valve annuloplasty, atrial fibrillation status post permanent pacemaker insertion on chronic anticoagulation, aortic valve stenosis, hypertension, hyperlipidemia, and chronic kidney disease who presented to the emergency department for evaluation of left shoulder pain after fall. The patient provides the following history. She reports ongoing issues with lower extremity edema, left greater than right, since March. Her left leg brace has not been feeling as well due to the swelling and neither have her shoes. She wears compression stockings and daughter puts compression dressings on her every couple of days which seems to help. More recently she has noticed that her left leg is feeling heavy. The last 2 days she has tripped and fallen on a bathroom rug which has been there for years and she reports that it seemed as though she could not get her left leg up. She fell onto her left side both times and luckily she did not sustain any significant injuries and she denies head trauma as well. Overall she is just feeling more weak than usual and is getting short of breath with day-to-day activity which is unusual for her. She denies fever, chills, sweats, syncope, near syncope, chest pain, pleuritic pain, palpitations, nausea, vomiting, diarrhea, and dysuria. No vertigo, visual changes, facial droop, difficulty speaking or swallowing, or increased weakness from baseline. In the ED: She was afebrile on arrival. Blood pressures have been running in the 150s to 180s systolic. Labs were significant for WBC count of 10.1, stable hemoglobin, INR 4.9, BUN 22, creatinine 1.10, proBNP 6000, troponin 0.023. Urine showed 3+ protein, trace ketones, 1+ leukocyte esterase, 11 to 20 WBC, many squamous cells, 4+ bacteria. Brain CT showed no acute intracranial process. Chest x-ray showed cardiomegaly with mild interstitial edema. Left shoulder x-ray showed no acute fracture. EKG showed a sinus rhythm with ST T-wave flattening in the inferolateral leads. She is being admitted in this setting for monitoring and evaluation. Review of Systems Review of Systems: Twelve systems were reviewed and are negative except for as per HPI. [facility] Past Medical History Medical History (Updated 07/11/23 @ 23:11 by Nellie Bonds PA-C) Anemia Aortic stenosis Benign essential hypertension Cerebrovascular accident (1991) Attributed to thrombus formation on mitral valve; residual left-sided weakness. Chronic anticoagulation Chronic kidney disease, stage 3 Hearing loss Hyperlipidemia Osteoporosis Paroxysmal atrial fibrillation Pre-diabetes Rash Seizures Seizure following stroke in 1991 though non since that time, remains on Dilantin. Thalassemia Vitamin B12 deficiency Vitamin D deficiency Surgical History Surgical History History of permanent cardiac pacemaker placement Status post mitral valve annuloplasty Family History Family History Mother Cerebrovascular accident Father Hypertension Social History Social History (Updated 07/11/23 @ 23:02 by Nellie Bonds PA-C) Social History: Surrogate medical decision maker: Tatiana Way, daughter. Code status: Smoking status: Never smoker Second hand tobacco smoke exposure: No Alcohol intake: current Substance use: never Do You Feel Safe in your Home?: Yes Lack of Transportation: No Lack of Food: Never True Current Housing: I Have Housing Concerned About Future Housing: No Difficulty Paying Gas/Electric Bills: No Difficulty Paying for Meds: No Currently Unemployed: No Education: Decline to Answer Difficulty w/ Childcare o
[2023-07-11] MEDS: SOTALOL HCL 80 MG TABLET BY MOUTH (22:10)
[2023-07-11] MEDS: PHENYTOIN SODIUM 100 MG EXTENDED RELEASE CAP BY MOUTH (22:10)
[2023-07-12] VITALS (9 sets, daily range): BP systolic 155–179; BP diastolic 52–67; PULSE 56–73; RESP 14–22; TEMP 36.1–37.2; O2SAT 90–92
[2023-07-12] MEDS: FUROSEMIDE INJ 40 MG/4 ML VIAL 20 MG IV PUSH (00:24)
[2023-07-12 00:32] LABS: Troponin I 0.038 ng/mL (0.000-0.034)
[2023-07-12 06:38] LABS: Hemoglobin 9.5 g/dL (12.0-15.0); Mean Corpuscular HGB Conc 31.7 g/dl (32-36); Mean Corpuscular Hemoglobin 23.6 pg (26-34); Mean Corpuscular Volume 74.4 fl (80-100); Mean Platelet Volume 9.5 fl (7.4-10.4); Platelet Count Result 246 k/mm3 (150-375); Red Blood Count 4.03 M/mm3 (4.2-5.4); Red Cell Distribution Width 16.3 % (11.5-14.5); White Blood Count 9.5 K/mm3 (4.5-10.0)
[2023-07-12 06:50] LABS: INR 4.8; Prothrombin Time 49.7 Seconds (11.1-14.7)
[2023-07-12 06:54] LABS: Anion Gap 7 mmol/L (8-16); Blood Urea Nitrogen 21 mg/dL (7-17); Calcium 8.5 mg/dL (8.4-10.2); Carbon Dioxide 25 mmol/L (22-30); Chloride 107 mmol/L (98-107); Estimated Glomerular Filt Rate 53; Glucose 110 mg/dL (65-110); Magnesium 1.7 mg/dL (1.6-2.3); Potassium 3.5 mmol/L (3.4-5.0); Sodium 139 mmol/L (137-145)
[2023-07-12] MEDS: FOLIC ACID 1 MG TABLET BY MOUTH (09:28)
[2023-07-12] MEDS: FERROUS SULFATE 325 MG TABLET DR PO ×2 (09:28→16:14)
[2023-07-12] MEDS: LOSARTAN POTASSIUM 25 MG TABLET BY MOUTH (09:28)
[2023-07-12] MEDS: SOTALOL HCL 80 MG TABLET BY MOUTH ×2 (09:28→21:18)
[2023-07-12] MEDS: CHOLECALCIFEROL 1,000 UNITS TABLET 5000 UNITS PO (09:28)
[2023-07-12] MEDS: PHENYTOIN SODIUM 100 MG EXTENDED RELEASE CAP BY MOUTH ×2 (09:28→21:18)
[2023-07-12] MEDS: CYANOCOBALAMIN 1,000 MCG TABLET 1000 MCG PO (09:28)
--- NOTE | 2023-07-12 11:18 | ECG_ITS ---
Measurements Intervals [place] Rate: 59 P: [place]: 122 QRS: 51 QRSD: 80 T: 195 QT: 412 QTc: 410 Interpretive Statements SINUS BRADYCARDIA BASELINE ARTIFACT NONSPECIFIC ST & T-WAVE ABNORMALITY BORDERLINE ECG COMPARED TO ECG 07/11/2023 17:21:45 ST ABNORMALITIES LESS PROMINENT Electronically Signed On 07-12-2023 18:28:18 CHILDREN LIBRARIAN by Mark Owen M.D.
[2023-07-12 12:44] LABS: Troponin I 0.055 ng/mL (0.000-0.034)
--- NOTE | 2023-07-12 15:37 | PM.IMPN ---
Progress Note: A&P Assessment and Plan (1) Abnormal urinalysis: Code(s): R82.90 - Unspecified abnormal findings in urine Status: Acute (2) Chronic kidney disease, stage 3: Code(s): N18.30 - Chronic kidney disease, stage 3 unspecified Status: Acute (3) Chronic anticoagulation: Code(s): Z79.01 - skilled nursing (current) use of anticoagulants Status: Acute (4) Paroxysmal atrial fibrillation: Code(s): I48.0 - Paroxysmal atrial fibrillation Status: Acute (5) Congestive heart failure: Code(s): I50.9 - Heart failure, unspecified Status: Acute (6) Aortic stenosis: Code(s): I35.0 - Nonrheumatic aortic (valve) stenosis Status: Acute (7) Fall from ground level: Code(s): W18.30XA - Fall on same level, unspecified, initial encounter Status: Acute (8) Generalized weakness: Code(s): R53.1 - Weakness Status: Acute (9) Pneumonia: Code(s): J18.9 - Pneumonia, unspecified organism Status: Acute (10) Left shoulder pain: Code(s): M25.512 - Pain in left shoulder Status: Acute (11) Swelling of left lower extremity: Code(s): M79.89 - Other specified soft tissue disorders Status: Acute (12) Valvular heart disease: Code(s): I38 - Endocarditis, valve unspecified Status: Acute (13) Anemia: Qualifiers: Anemia type: unspecified type Qualified Code(s): D64.9 - Anemia, unspecified Code(s): D64.9 - Anemia, unspecified Status: Acute (14) History of CVA (cerebrovascular accident): Code(s): Z86.73 - Personal history of transient ischemic attack (TIA), and cerebral infarction without residual deficits Status: Chronic Plan This is a pleasant 78-year-old female with a history of CVA and resultant left-sided paralysis, seizures on phenytoin, rheumatic fever status post mitral valve annuloplasty, aortic valve stenosis, AFib status post permanent pacemaker insertion on chronic warfarin and sotalol, hypertension, hyperlipidemia, CKD stage IIIA, who presented for evaluation of left shoulder pain after a fall. She reports she has been having left lower leg swelling since March and her left leg brace has not been feeling well due to this. She tripped and fell on the bathroom rug. She reports weakness and shortness of breath as well. And [facility] she was found to have elevated blood pressure, INR 4.9, creatinine 1.1 BNP 6000, troponin 0.023, abnormal urinalysis. Brain CT without acute intracranial process, chest x-ray demonstrating mild interstitial edema and possible pneumonia, left shoulder x-ray no acute fracture. Subsequently admitted on 07/11 for multiple issues. #Acutely decompensated congestive heart failure new diagnosis unspecified type -proBNP on admission 6000 with complaints of increasing lower extremity edema. She appears acutely decompensated. Pending surface echocardiogram. Received 1 time Lasix on admission. Continue 40 mg IV b.i.d. cardiology consulted. -elevated troponin at 0.03 to .055. EKG with nonspecific STT wave changes. Continue to trend. Cardiology following. This is likely demand ischemia from decompensation. Further investigation may be warranted although. #Left lower leg edema -pending lower extremity Doppler ultrasound #History of stroke with resultant left-sided paralysis with fall at home -following weakness likely due to the swelling of her lower extremity as she was complaining was feeling heavier and her brace is not fitting as well. -head CT on admission without acute intracranial process. Left shoulder x-ray without acute fracture. -PT OT consulted. -continue phenytoin #Community-acquired pneumonia -this may be contributing to her shortness of breath and acute decompensation. -ceftriaxone and doxycycline started. She is on sotalol so avoid azithromycin. QTC 410. #Abnormal urinalysis -many squamous cells. She is asymptomatic. Foll
[2023-07-12] MEDS: FUROSEMIDE INJ 40 MG/4 ML VIAL IV PUSH (16:14)
[2023-07-12] MEDS: DOXYCYCLINE 100 MG/NS 100 ML 100 MG/100 ML BAG IVPB (16:14)
--- NOTE | 2023-07-12 16:14 | PM.CNCAR ---
Assessment and Plan Assessment and plan (1) Congestive heart failure: Qualifiers: Heart failure chronicity: acute on chronic Heart failure type: diastolic Qualified Code(s): I50.33 - Acute on chronic diastolic (congestive) heart failure Code(s): I50.9 - Heart failure, unspecified Status: Acute Assessment and Plan: Possible mild decompensated acute heart failure with preserved ejection fraction. Patient is being treated for possible community-acquired pneumonia which certainly could add to her shortness of breath, weakness, fall risk and exacerbate a degree of heart failure. We need to be particularly cautious to avoid intravascular volume depletion given her exam suggestive of severe aortic stenosis. Reduce Lasix to 40 mg IV daily, but may be able to transition to oral regimen possibly tomorrow morning depending on her clinical response. Patient remains hypertensive and is tolerating thus far. Continue losartan 25 mg daily. With regards or shortness of breath and weakness expect she will improve with supportive care, treatment for suspected underlying pneumonia and correction of volume status. We need to be cautious this regard as above. Continue monitor renal function, blood pressure, electrolytes clear carefully. Continue telemetry. (2) Aortic stenosis: Qualifiers: Cardiac valve disease etiology: etiology unspecified Qualified Code(s): I35.0 - Nonrheumatic aortic (valve) stenosis Code(s): I35.0 - Nonrheumatic aortic (valve) stenosis Status: Acute Assessment and Plan: Patient has a history of moderate aortic stenosis prior aortic valve area 1.1 centimeters squared 05/2022. She is being monitored for probable TAVR when she meets criteria for severe aortic stenosis. Her exam is suggestive of severe aortic stenosis. 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 Her exam is also suggestive of aortic regurgitation. Further recommendations to follow after echocardiogram is reviewed. If patient does now meet criteria for severe aortic stenosis in which case TAVR may be consideration this is an outpatient consideration that is not performed at this hospital. She already underwent left heart catheterization last year with minimal nonobstructive CAD. (3) Paroxysmal atrial fibrillation: Code(s): I48.0 - Paroxysmal atrial fibrillation Status: Acute Assessment and Plan: Maintaining sinus rhythm on sotalol 80 mg twice daily. QTC by ECG 410 milliseconds. Avoid QT prolonging drugs. (4) Supratherapeutic INR: Code(s): R79.1 - Abnormal coagulation profile Status: Acute Assessment and Plan: Monitor for bleeding. Follow H&H. Target INR 2.5. (5) Fall from ground level: Code(s): W18.30XA - Fall on same level, unspecified, initial encounter Status: Acute Assessment and Plan: No associated syncope secondary to weakness as she reports. Further management per primary service. No intracerebral hemorrhage secondary to fall in which CT head negative. PT OT evaluation. Extreme caution with ambulation. 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 2D echocardiogram pending further recommendation follow. (7) Cardiac pacemaker in situ: Code(s): Z95.0 - Presence of cardiac pacemaker Status: Acute Assessment and Plan: Maintaining sinus rhythm. History of tachy-rica with paroxysmal atrial fibrillation. (8) History of CVA (cerebrovascular accident): Code(s): Z86.73 - Personal history of transient ischemic attack (TIA), and cerebral infarction without residual deficits Status: Chronic Assessment and Plan:
--- NOTE | 2023-07-12 18:45 | ECG_ITS ---
Measurements Intervals [place] Rate: 62 P: 43 TN: 165 QRS: 59 QRSD: 81 T: 166 QT: 490 QTc: 498 Interpretive Statements SINUS RHYTHM WITH SINUS ARRHYTHMIA NONSPECIFIC ST AND T ABNORMALITY LONG QT INTERVAL ABNORMAL ECG COMPARED TO ECG 07/12/2023 11:36:24 NO SIGNIFICANT CHANGE Electronically Signed On 07-13-2023 7:20:38 CV TECH by Amrik Anand M.D.
[2023-07-12 19:55] LABS: Troponin I 0.047 ng/mL (0.000-0.034)
[2023-07-13] VITALS (13 sets, daily range): BP systolic 115–150; BP diastolic 46–55; PULSE 54–69; RESP 14–16; TEMP 36.2–36.5; O2SAT 93–97
--- NOTE | 2023-07-13 | ECHO_ITS ---
Patient Info Name: Kait Skaggs Age: 78 years : 1945 Gender: Female Ht: 59 in Wt: 97 lbs BSA: 1.35 m2 HR: 62 bpm BP: 150 / 55 mmHg Heart Rhythm: Paced Technical Quality: Fair Exam Date: 07/13/2023 11:07 AM Exam Location: Echo Lab Exam Room: [facility] Patient Status: Inpatient Admit Date: 07/13/2023 Staff Ordering Physician: Nellie Bonds PA-C Pi/Senior Research Associate: Alice Munguia RDCS Attending Provider: Petra Lovell MD Referring Physician: Vamshi CAVANAUGH; Exam Type: CA echo doppler color flow Study Info Indications - AORTIC VALVE STENOSIS CHF PPM Complete two-dimensional, color flow and Doppler transthoracic echocardiogram is performed. Summary 1. Complete two-dimensional, color flow and Doppler transthoracic echocardiogram is performed. 2. Left ventricular hypertrophy with preserved systolic function. 3. Severe biatrial dilation. 4. Significantly sclerotic aortic valve which is mildly stenotic. 5. Thickened mitral valve with mild mitral regurgitation and stenosis. 6. Paced rhythm. 7. Tricuspid regurgitant velocities consistent with significant pulmonary hypertension. Left Ventricle Left ventricular chamber dimension is normal. Left ventricular systolic function is normal, estimated at 65-70%. There is moderate concentric increased left ventricular wall thickness. Right Ventricle Right ventricular chamber dimension is normal. Linear artifact in right ventricle suggestive of catheter(s), pacemaker lead(s), or ICD lead(s). Left Atria Left atrial chamber dimension is severely enlarged. Right Atria Right atrial chamber dimension is severely enlarged. Aortic Valve The aortic valve is trileaflet. There is moderate aortic valve sclerosis. There is mild to moderate aortic valve stenosis with a peak velocity of 264 cm/s, mean gradient of 16 mmHg, and aortic valve area of 1.7 cm2. Pulmonic Valve The pulmonic valve is normal. There is trace pulmonic regurgitation. Mitral Valve The mitral valve has thickened leaflets. There is mild mitral valve stenosis. There is mild mitral valve regurgitation. Tricuspid Valve The tricuspid valve leaflets are normal. There is mild to moderate tricuspid valve regurgitation. Moderate pulmonary hypertension, estimated pulmonary arterial systolic pressure is 92 mmHg. Pericardium/Pleural The pericardium appears normal. Aorta The aortic root size at the sinus of Valsalva is normal. Left Ventricular Outflow Tract Name Value Normal LVOT 2D LVOT Diameter 2.0 cm LVOT Doppler LVOT Peak Gradient 8 mmHg LVOT Mean Gradient 5 mmHg LVOT VTI 35 cm LVOT VTI/AV VTI Ratio 0.5 LVOT Stroke Volume 112 ml LVOT CO 20.6 l/min LVOT CI 15.3 l/min/m2 Pulmonic Valve Name Value Normal PV Doppler PV Pe
[2023-07-13] MEDS: DOXYCYCLINE 100 MG/NS 100 ML 100 MG/100 ML BAG IVPB ×2 (06:33→17:38)
[2023-07-13 06:43] LABS: Basophils Absolute Auto 0.1 K/mm3 (0.0-0.1); Basophils Percent Auto 0.5 % (0.2-1.2); Eosinophils Absolute Auto 0.2 K/mm3 (0-0.3); Eosinophils Percent Auto 2.2 % (0-4.4); Hematocrit 33.7 % (37.0-47.0); Hemoglobin 10.5 g/dL (12.0-15.0); Immature Granulocyte Absolute 0.03 K/mm3 (0.00-0.031); Immature Granulocyte Percent A 0.3 % (0-0.5); Lymphocytes Absolute Auto 0.93 K/mm3 (0.9-3.2); Lymphocytes Percent Auto 10.2 % (18.3-44.2); Mean Corpuscular HGB Conc 31.2 g/dl (32-36); Mean Corpuscular Hemoglobin 23.4 pg (26-34); Mean Corpuscular Volume 75.1 fl (80-100); Mean Platelet Volume 9.6 fl (7.4-10.4); Monocytes Absolute Auto 1.2 K/mm3 (0.1-0.6); Neutrophils Absolute Auto 6.7 K/mm3 (1.3-6.7); Neutrophils Percent Auto 73.8 % (45.5-73.1); Platelet Count Result 257 k/mm3 (150-375); Red Blood Count 4.49 M/mm3 (4.2-5.4); Red Cell Distribution Width 16.2 % (11.5-14.5); White Blood Count 9.1 K/mm3 (4.5-10.0)
[2023-07-13 06:55] LABS: Anion Gap 4 mmol/L (8-16); Blood Urea Nitrogen 25 mg/dL (7-17); Calcium 8.3 mg/dL (8.4-10.2); Carbon Dioxide 31 mmol/L (22-30); Chloride 103 mmol/L (98-107); Estimated Glomerular Filt Rate 48; Glucose 95 mg/dL (65-110); Magnesium 1.5 mg/dL (1.6-2.3); Potassium 3.1 mmol/L (3.4-5.0); Sodium 138 mmol/L (137-145)
[2023-07-13 07:03] LABS: INR 3.1; Prothrombin Time 34.6 Seconds (11.1-14.7)
[2023-07-13] MEDS: CHOLECALCIFEROL 1,000 UNITS TABLET 5000 UNITS PO (09:35)
[2023-07-13] MEDS: FERROUS SULFATE 325 MG TABLET DR PO ×2 (09:35→16:53)
[2023-07-13] MEDS: FOLIC ACID 1 MG TABLET BY MOUTH (09:35)
[2023-07-13] MEDS: CYANOCOBALAMIN 1,000 MCG TABLET 1000 MCG PO (09:35)
[2023-07-13] MEDS: SOTALOL HCL 80 MG TABLET BY MOUTH ×2 (09:42→20:53)
[2023-07-13] MEDS: PHENYTOIN SODIUM 100 MG EXTENDED RELEASE CAP BY MOUTH ×2 (09:42→20:54)
[2023-07-13] MEDS: LOSARTAN POTASSIUM 25 MG TABLET BY MOUTH (09:43)
[2023-07-13] MEDS: FUROSEMIDE INJ 40 MG/4 ML VIAL IV PUSH ×2 (09:43→16:54)
--- NOTE | 2023-07-13 17:39 | PM.IMPN ---
Progress Note: A&P Assessment and Plan (1) Abnormal urinalysis: Code(s): R82.90 - Unspecified abnormal findings in urine Status: Acute (2) Chronic kidney disease, stage 3: Code(s): N18.30 - Chronic kidney disease, stage 3 unspecified Status: Acute (3) Chronic anticoagulation: Code(s): Z79.01 - shelter (current) use of anticoagulants Status: Acute (4) Paroxysmal atrial fibrillation: Code(s): I48.0 - Paroxysmal atrial fibrillation Status: Acute (5) Congestive heart failure: Qualifiers: Heart failure type: diastolic Heart failure chronicity: acute on chronic Qualified Code(s): I50.33 - Acute on chronic diastolic (congestive) heart failure Code(s): I50.9 - Heart failure, unspecified Status: Acute (6) Aortic stenosis: Qualifiers: Cardiac valve disease etiology: etiology unspecified Qualified Code(s): I35.0 - Nonrheumatic aortic (valve) stenosis Code(s): I35.0 - Nonrheumatic aortic (valve) stenosis Status: Acute (7) Fall from ground level: Code(s): W18.30XA - Fall on same level, unspecified, initial encounter Status: Acute (8) Generalized weakness: Code(s): R53.1 - Weakness Status: Acute (9) Pneumonia: Code(s): J18.9 - Pneumonia, unspecified organism Status: Acute (10) Left shoulder pain: Code(s): M25.512 - Pain in left shoulder Status: Acute (11) Swelling of left lower extremity: Code(s): M79.89 - Other specified soft tissue disorders Status: Acute (12) Valvular heart disease: Code(s): I38 - Endocarditis, valve unspecified Status: Acute (13) Anemia: Qualifiers: Anemia type: unspecified type Qualified Code(s): D64.9 - Anemia, unspecified Code(s): D64.9 - Anemia, unspecified Status: Acute (14) History of CVA (cerebrovascular accident): Code(s): Z86.73 - Personal history of transient ischemic attack (TIA), and cerebral infarction without residual deficits Status: Chronic Plan This is a pleasant 78-year-old female with a history of CVA and resultant left-sided paralysis, seizures on phenytoin, rheumatic fever status post mitral valve annuloplasty, aortic valve stenosis, AFib status post permanent pacemaker insertion on chronic warfarin and sotalol, hypertension, hyperlipidemia, CKD stage IIIA, who presented for evaluation of left shoulder pain after a fall. She reports she has been having left lower leg swelling since March and her left leg brace has not been feeling well due to this. She tripped and fell on the bathroom rug. She reports weakness and shortness of breath as well. And [place] [facility] she was found to have elevated blood pressure, INR 4.9, creatinine 1.1 BNP 6000, troponin 0.023, abnormal urinalysis. Brain CT without acute intracranial process, chest x-ray demonstrating mild interstitial edema and possible pneumonia, left shoulder x-ray no acute fracture. Subsequently admitted on 07/11 for multiple issues. #Acutely decompensated congestive heart failure new diagnosis unspecified type -proBNP on admission 6000 with complaints of increasing lower extremity edema. She appears acutely decompensated. Pending surface echocardiogram. Received 1 time Lasix on admission. Lasix 40 mg IV b.i.d. started with good urine output. Changed to Lasix 40 mg p.o. q.day moving forward. Improved on 07/13. Defer to cardiology for further management. -elevated troponin at 0.03 to .055 and then down 2.0 4 7. EKG with nonspecific STT wave changes. Likely demand ischemia # electrolyte abnormalities -receiving Lasix. Place potassium and magnesium and recheck. #Left lower leg edema -lower extremity Doppler bilaterally without evidence of DVT -improved status post Lasix #History of stroke with resultant left-sided paralysis with fall at home -following weakness likely due to the swelling of her lower extremity as she
[2023-07-13] MEDS: POTASSIUM CHLORIDE 20 MEQ ER TABLET 40 MEQ PO (17:46)
[2023-07-13] MEDS: WARFARIN (*PBKC) 1 MG TABLET PO (17:47)
[2023-07-13] MEDS: MAGNESIUM SULF 1 GM/D5W 100 ML 1 GM/100 ML BAG IVPB (18:53)
[2023-07-13] MEDS: ACETAMINOPHEN 325 MG TABLET 650 MG PO (20:52)
[2023-07-14] VITALS (12 sets, daily range): BP systolic 111–159; BP diastolic 41–53; PULSE 50–60; RESP 16; TEMP 36.2–36.6; O2SAT 97–100
[2023-07-14] MEDS: DOXYCYCLINE 100 MG/NS 100 ML 100 MG/100 ML BAG IVPB (05:23)
[2023-07-14 06:34] LABS: Anion Gap 8 mmol/L (8-16); Blood Urea Nitrogen 43 mg/dL (7-17); Calcium 8.2 mg/dL (8.4-10.2); Carbon Dioxide 26 mmol/L (22-30); Chloride 102 mmol/L (98-107); Estimated Glomerular Filt Rate 36; Glucose 98 mg/dL (65-110); Potassium 4.2 mmol/L (3.4-5.0); Sodium 136 mmol/L (137-145)
[2023-07-14 06:36] LABS: INR 2.2; Prothrombin Time 25.7 Seconds (11.1-14.7)
[2023-07-14] MEDS: CYANOCOBALAMIN 1,000 MCG TABLET 1000 MCG PO (09:00)
[2023-07-14] MEDS: FERROUS SULFATE 325 MG TABLET DR PO ×2 (09:00→16:25)
[2023-07-14] MEDS: CHOLECALCIFEROL 1,000 UNITS TABLET 5000 UNITS PO (09:00)
[2023-07-14] MEDS: FOLIC ACID 1 MG TABLET BY MOUTH (09:00)
[2023-07-14] MEDS: PHENYTOIN SODIUM 100 MG EXTENDED RELEASE CAP BY MOUTH ×2 (09:00→21:00)
[2023-07-14] MEDS: SOTALOL HCL 80 MG TABLET BY MOUTH (09:01)
[2023-07-14] MEDS: FUROSEMIDE 40 MG TABLET PO (09:01)
[2023-07-14] MEDS: LOSARTAN POTASSIUM 25 MG TABLET BY MOUTH (09:01)
--- NOTE | 2023-07-14 12:56 | PM.PNCARD ---
Progress Note: A&P Assessment and Plan (1) Congestive heart failure: Qualifiers: Heart failure chronicity: acute on chronic Heart failure type: diastolic Qualified Code(s): I50.33 - Acute on chronic diastolic (congestive) heart failure Code(s): I50.9 - Heart failure, unspecified Status: Acute Assessment and Plan: Possible mild decompensated acute heart failure with preserved ejection fraction. Mild LISA today, furosemide now held. She looks euvolemic Continue losartan BMP in the a.m. Cardiology will follow on an as needed basis. Will arrange follow up with her established supervisor [employer] department, Dr. Anand (2) Aortic stenosis: Qualifiers: Cardiac valve disease etiology: etiology unspecified Qualified Code(s): I35.0 - Nonrheumatic aortic (valve) stenosis Code(s): I35.0 - Nonrheumatic aortic (valve) stenosis Status: Acute Assessment and Plan: Patient has a history of moderate aortic stenosis prior aortic valve area 1.1 centimeters squared 05/2022. Follows with Dr. Anand and was referred to Dr. Ruiz for TAVR consultation. Her repeat echo here showed mild to moderate aortic valve stenosis with a peak velocity of 264cm/s, mean gradient of 16 mmHg, and aortic valve area of 1.7 cm2. Continue routine outpatient surveillance. (3) Paroxysmal atrial fibrillation: Code(s): I48.0 - Paroxysmal atrial fibrillation Status: Acute Assessment and Plan: Maintaining sinus rhythm on sotalol 80 mg twice daily. QTC by ECG 410 milliseconds. Avoid QT prolonging drugs. (4) Supratherapeutic INR: Code(s): R79.1 - Abnormal coagulation profile Status: Acute Assessment and Plan: Monitor for bleeding. Follow H&H. Target INR 2.5. (5) Fall from ground level: Code(s): W18.30XA - Fall on same level, unspecified, initial encounter Status: Acute Assessment and Plan: No associated syncope secondary to weakness as she reports. Further management per primary service. No intracerebral hemorrhage secondary to fall in which CT head negative. PT OT evaluation. Extreme caution with ambulation. (6) Status post open mitral valve commissurotomy: Code(s): Z98.890 - Other specified postprocedural states Status: Acute Assessment and Plan: Mild mitral stenosis with mild MR on echo done this admission. (7) Cardiac pacemaker in situ: Code(s): Z95.0 - Presence of cardiac pacemaker Status: Acute Assessment and Plan: Maintaining sinus rhythm. History of tachy-rica with paroxysmal atrial fibrillation. (8) History of CVA (cerebrovascular accident): Code(s): Z86.73 - Personal history of transient ischemic attack (TIA), and cerebral infarction without residual deficits Status: Chronic Assessment and Plan: History of CVA with left hemiparesis. Patient high risk for recurrent stroke given valvular heart disease, advanced age, history of CVA. Consideration for left atrial appendage occlusion device patient is deemed excessive fall risk moving forward. Subjective Date/time seen: 07/14/23 12:56 Interval history: Cardiology follow up for CHF, She's feeling well, no chest pain, shortness of breath. She has been up walking today and felt fine with that. Review of Systems Review of Systems: Remainder of the review of systems is otherwise negative aside from that noted in the HPI. All systems reviewed & are unremarkable except as noted in HPI and below Constitutional: Constitutional: Reports as per HPI and Reports no additional constitutional complaints Eyes: Eyes: Reports as per HPI and Reports no additional eye complaints ENT: Reports system reviewed and no additional complaints, except as documented and Reports as per HPI Cardiovascular: Cardiovascular: Reports as per HPI and Reports no additional cardiovascular complaints Respiratory: Respiratory: Reports as per HPI and Reports
--- NOTE | 2023-07-14 16:22 | PM.IMPN ---
Progress Note: A&P Assessment and Plan (1) Abnormal urinalysis: Code(s): R82.90 - Unspecified abnormal findings in urine Status: Acute (2) Chronic kidney disease, stage 3: Code(s): N18.30 - Chronic kidney disease, stage 3 unspecified Status: Acute (3) Chronic anticoagulation: Code(s): Z79.01 - senior care (current) use of anticoagulants Status: Acute (4) Paroxysmal atrial fibrillation: Code(s): I48.0 - Paroxysmal atrial fibrillation Status: Acute (5) Congestive heart failure: Qualifiers: Heart failure type: diastolic Heart failure chronicity: acute on chronic Qualified Code(s): I50.33 - Acute on chronic diastolic (congestive) heart failure Code(s): I50.9 - Heart failure, unspecified Status: Acute (6) Aortic stenosis: Qualifiers: Cardiac valve disease etiology: etiology unspecified Qualified Code(s): I35.0 - Nonrheumatic aortic (valve) stenosis Code(s): I35.0 - Nonrheumatic aortic (valve) stenosis Status: Acute (7) Fall from ground level: Code(s): W18.30XA - Fall on same level, unspecified, initial encounter Status: Acute (8) Generalized weakness: Code(s): R53.1 - Weakness Status: Acute (9) Pneumonia: Code(s): J18.9 - Pneumonia, unspecified organism Status: Acute (10) Left shoulder pain: Code(s): M25.512 - Pain in left shoulder Status: Acute (11) Swelling of left lower extremity: Code(s): M79.89 - Other specified soft tissue disorders Status: Acute (12) Valvular heart disease: Code(s): I38 - Endocarditis, valve unspecified Status: Acute (13) Anemia: Qualifiers: Anemia type: unspecified type Qualified Code(s): D64.9 - Anemia, unspecified Code(s): D64.9 - Anemia, unspecified Status: Acute (14) History of CVA (cerebrovascular accident): Code(s): Z86.73 - Personal history of transient ischemic attack (TIA), and cerebral infarction without residual deficits Status: Chronic Plan This is a pleasant 78-year-old female with a history of CVA and resultant left-sided paralysis, seizures on phenytoin, rheumatic fever status post mitral valve annuloplasty, aortic valve stenosis, AFib status post permanent pacemaker insertion on chronic warfarin and sotalol, hypertension, hyperlipidemia, CKD stage IIIA, who presented for evaluation of left shoulder pain after a fall. She reports she has been having left lower leg swelling since March and her left leg brace has not been feeling well due to this. She tripped and fell on the bathroom rug. She reports weakness and shortness of breath as well. And [facility] she was found to have elevated blood pressure, INR 4.9, creatinine 1.1 BNP 6000, troponin 0.023, abnormal urinalysis. Brain CT without acute intracranial process, chest x-ray demonstrating mild interstitial edema and possible pneumonia, left shoulder x-ray no acute fracture. Subsequently admitted on 07/11 for multiple issues. #Acutely decompensated congestive heart failure new diagnosis unspecified type -proBNP on admission 6000 with complaints of increasing lower extremity edema. She appears acutely decompensated. Surface echocardiogram noted. Received 1 time Lasix on admission. Lasix 40 mg IV b.i.d. started with good urine output. Changed to Lasix 40 mg p.o. q.day moving forward. Improved on 07/13. On 07/14 she has a LISA probably due to over diuresis. Hold diuresis and sent home on a low dose. Hopefully home tomorrow if her renal function is stable. -elevated troponin at 0.03 to .055 and then down 2.0 4 7. EKG with nonspecific STT wave changes. Likely demand ischemia # electrolyte abnormalities -resolved status post replacement #Left lower leg edema -lower extremity Doppler bilaterally without evidence of DVT -improved status post Lasix #History of stroke with resultant left-sided paralysis with fall at h
[2023-07-14] MEDS: WARFARIN (*PBKC) 1 MG TABLET PO (16:25)
[2023-07-15] VITALS (11 sets, daily range): BP systolic 113–143; BP diastolic 43–49; PULSE 51–658; RESP 13–20; TEMP 36.1–36.4; O2SAT 99–100
[2023-07-15 07:00] LABS: INR 1.9
[2023-07-15 07:07] LABS: Anion Gap 8 mmol/L (8-16); Blood Urea Nitrogen 60 mg/dL (7-17); Calcium 8.4 mg/dL (8.4-10.2); Carbon Dioxide 29 mmol/L (22-30); Chloride 99 mmol/L (98-107); Estimated Glomerular Filt Rate 31; Glucose 100 mg/dL (65-110); Potassium 3.6 mmol/L (3.4-5.0); Sodium 136 mmol/L (137-145)
[2023-07-15] MEDS: AMOXICILLIN/CLAVULANATE K 875-125 MG TAB 1 TABLET PO ×2 (09:50→20:39)
[2023-07-15] MEDS: FOLIC ACID 1 MG TABLET BY MOUTH (09:50)
[2023-07-15] MEDS: CHOLECALCIFEROL 1,000 UNITS TABLET 5000 UNITS PO (09:50)
[2023-07-15] MEDS: CYANOCOBALAMIN 1,000 MCG TABLET 1000 MCG PO (09:50)
[2023-07-15] MEDS: LOSARTAN POTASSIUM 25 MG TABLET BY MOUTH (09:50)
[2023-07-15] MEDS: FERROUS SULFATE 325 MG TABLET DR PO ×2 (09:50→17:24)
[2023-07-15] MEDS: SOTALOL HCL 80 MG TABLET BY MOUTH ×2 (09:51→20:36)
[2023-07-15] MEDS: PHENYTOIN SODIUM 100 MG EXTENDED RELEASE CAP BY MOUTH ×2 (09:51→20:39)
--- NOTE | 2023-07-15 12:03 | PM.IMPN ---
Progress Note: A&P Assessment and Plan (1) Abnormal urinalysis: Code(s): R82.90 - Unspecified abnormal findings in urine Status: Acute Assessment and Plan: -many squamous cells.? She is asymptomatic.? Follow up on the urine culture. -as expected urine culture did not grow significant findings. (2) Paroxysmal atrial fibrillation: Code(s): I48.0 - Paroxysmal atrial fibrillation Status: Acute Assessment and Plan: -INR 4.8 on admission.? Coumadin held for 1 day. -INR 1.9? Coumadin resumed -sinus rhythm.? -Continue sotalol and avoid QT prolonging agents. (3) Congestive heart failure: Qualifiers: Heart failure type: diastolic Heart failure chronicity: acute on chronic Qualified Code(s): I50.33 - Acute on chronic diastolic (congestive) heart failure Code(s): I50.9 - Heart failure, unspecified Status: Acute Assessment and Plan: proBNP on admission 6000 with complaints of increasing lower extremity edema.? She appears acutely decompensated.? Surface echocardiogram noted.? Received 1 time Lasix on admission.? Lasix 40 mg IV b.i.d. started with good urine output.? Changed to Lasix 40 mg p.o. q.day moving forward.? Improved on 07/13.?? On 07/14 she had a LISA probably due to over diuresis.? Hold diuresis and sent home on a low dose.? Hopefully home tomorrow if her renal function is stable. -elevated troponin at 0.03 to .055 and then down 2.0 4 7.? EKG with nonspecific STT wave changes.? Likely demand ischemia 07/15/: continue plan above (4) Valvular heart disease: Code(s): I38 - Endocarditis, valve unspecified Status: Acute (5) Pneumonia: Code(s): J18.9 - Pneumonia, unspecified organism Status: Acute Assessment and Plan: #Community-acquired pneumonia -shortness of breath improved -ceftriaxone and doxycycline started.? She is on sotalol so avoid azithromycin.? QTC 410.? Antibiotics changed to Augmentin on 07/15 in a.m. for 4 doses. (6) Supratherapeutic INR: Code(s): R79.1 - Abnormal coagulation profile Status: Acute (7) Chronic kidney disease, stage 3: Code(s): N18.30 - Chronic kidney disease, stage 3 unspecified Status: Acute Plan #Left lower leg edema -lower extremity Doppler bilaterally without evidence of DVT -improved status post Lasix #History of stroke with resultant left-sided paralysis with fall at home -following weakness likely due to the swelling of her lower extremity as she was complaining was feeling heavier and her brace is not fitting as well. -head CT on admission without acute intracranial process. Left shoulder x-ray without acute fracture. -PT OT consulted. -continue phenytoin # valvulopathy -surface echocardiogram noted. To resume normal outpatient surveillance with her primary industrial machine operator Dr. Anand. Appreciate Cardiology recommendations. #History of hypertension -uncontrolled on admission. Continue sotalol and losartan. Now controlled. S/p: diuresis #CKD stage IIIA -LISA on CKD on 07/14. Hold Lasix and recheck renal function in morning. FEN: Saline lock IV. Cardiac diet. Daily weights and fluid restriction of 1800 cc per day GI prophylaxis: Not indicated DVT prophylaxis: Continue Coumadin Lines: Peripheral IV Code Status: Full code Dispo: Stable Subjective Date/time seen: 07/15/23 12:03 Interval history: 78-year-old female with a history of CVA and resultant left-sided paralysis, seizures on phenytoin, rheumatic fever status post mitral valve annuloplasty, aortic valve stenosis, AFib status post permanent pacemaker insertion on chronic warfarin and sotalol, hypertension, hyperlipidemia, CKD stage IIIA, who presented for evaluation of left shoulder pain after a fall.? She reports she has been having left lower leg swelling since March and her left leg brace has not been feeling well due to this.? She tripped and fell on the bathroom rug.?
[2023-07-15] MEDS: WARFARIN (*PBKC) 1 MG TABLET PO (17:24)
[2023-07-16] VITALS (7 sets, daily range): BP systolic 133–160; BP diastolic 40–51; PULSE 51–68; RESP 12–20; TEMP 36.2–36.7; O2SAT 95–100
[2023-07-16] MEDS: CHOLECALCIFEROL 1,000 UNITS TABLET 5000 UNITS PO (08:57)
[2023-07-16] MEDS: AMOXICILLIN/CLAVULANATE K 875-125 MG TAB 1 TABLET PO (08:57)
[2023-07-16] MEDS: CYANOCOBALAMIN 1,000 MCG TABLET 1000 MCG PO (08:57)
[2023-07-16] MEDS: PHENYTOIN SODIUM 100 MG EXTENDED RELEASE CAP BY MOUTH (08:58)
[2023-07-16] MEDS: LOSARTAN POTASSIUM 25 MG TABLET BY MOUTH (08:58)
[2023-07-16] MEDS: FERROUS SULFATE 325 MG TABLET DR PO (08:58)
[2023-07-16] MEDS: FOLIC ACID 1 MG TABLET BY MOUTH (08:58)
[2023-07-16 10:02] LABS: Basophils Absolute Auto 0.1 K/mm3 (0.0-0.1); Basophils Percent Auto 0.5 % (0.2-1.2); Eosinophils Absolute Auto 0.2 K/mm3 (0-0.3); Eosinophils Percent Auto 1.7 % (0-4.4); Hemoglobin 10.6 g/dL (12.0-15.0); Immature Granulocyte Absolute 0.09 K/mm3 (0.00-0.031); Immature Granulocyte Percent A 0.8 % (0-0.5); Lymphocytes Absolute Auto 1.09 K/mm3 (0.9-3.2); Mean Corpuscular HGB Conc 32.1 g/dl (32-36); Mean Corpuscular Hemoglobin 23.6 pg (26-34); Mean Corpuscular Volume 73.5 fl (80-100); Mean Platelet Volume 9.2 fl (7.4-10.4); Monocytes Absolute Auto 1.1 K/mm3 (0.1-0.6); Monocytes Percent Auto 9.8 % (2.6-8.5); Neutrophils Absolute Auto 8.4 K/mm3 (1.3-6.7); Neutrophils Percent Auto 77.2 % (45.5-73.1); Platelet Count Result 332 k/mm3 (150-375); Red Blood Count 4.49 M/mm3 (4.2-5.4); Red Cell Distribution Width 16.5 % (11.5-14.5); White Blood Count 10.9 K/mm3 (4.5-10.0)
[2023-07-16 10:08] LABS: Alanine Aminotransferase 16 U/L (6-35); Albumin Level 3.3 g/dL (3.5-5.1); Alkaline Phosphatase 136 U/L (38-126); Anion Gap 8 mmol/L (8-16); Aspartate Amino Transferase 29 U/L (14-36); Bilirubin,Total 0.7 mg/dL (0.2-1.3); Blood Urea Nitrogen 62 mg/dL (7-17); Calcium 8.3 mg/dL (8.4-10.2); Carbon Dioxide 26 mmol/L (22-30); Chloride 99 mmol/L (98-107); Estimated Glomerular Filt Rate 39; Glucose 174 mg/dL (65-110); Sodium 133 mmol/L (137-145)
[2023-07-16 11:12] LABS: Hypochromasia 1+ (NORMAL); Platelet Estimate Adequate (Adequate); Schistocytes Rare (NORMAL); Target Cells 1+ (NORMAL)
[2023-07-16 11:13] LABS: Anisocytosis 1+ (NORMAL); Microcytosis 1+ (NORMAL)
[2023-07-16 13:47] LABS: SARS-CoV-2 RNA PCR Negative (Negative)
[2023-07-16 14:00] LABS: Magnesium 1.9 mg/dL (1.6-2.3)
--- NOTE | 2023-07-16 14:46 | PM.DS ---
DS: Admitting Diagnosis Discharge Date 07/16/2023 Admitting Diagnosis Abnormal urinalysis DS: Discharge Diagnosis Discharge Diagnosis (1) Supratherapeutic INR: Code(s): R79.1 - Abnormal coagulation profile Status: Acute (2) Status post open mitral valve commissurotomy: Code(s): Z98.890 - Other specified postprocedural states Status: Acute (3) Abnormal urinalysis: Code(s): R82.90 - Unspecified abnormal findings in urine Status: Acute (4) Chronic kidney disease, stage 3: Code(s): N18.30 - Chronic kidney disease, stage 3 unspecified Status: Acute (5) Chronic anticoagulation: Code(s): Z79.01 - nursing home (current) use of anticoagulants Status: Acute (6) Paroxysmal atrial fibrillation: Code(s): I48.0 - Paroxysmal atrial fibrillation Status: Acute (7) Congestive heart failure: Qualifiers: Heart failure type: diastolic Heart failure chronicity: acute on chronic Qualified Code(s): I50.33 - Acute on chronic diastolic (congestive) heart failure Code(s): I50.9 - Heart failure, unspecified Status: Acute (8) Left shoulder pain: Code(s): M25.512 - Pain in left shoulder Status: Acute (9) Fall from ground level: Code(s): W18.30XA - Fall on same level, unspecified, initial encounter Status: Acute Plan Patient has a history of moderate aortic stenosis prior aortic valve area 1.1 centimeters squared 05/2022.? Follows with Dr. Anand and was referred to Dr. Ruiz for TAVR consultation.? Her repeat echo here showed mild to moderate aortic valve stenosis with a peak velocity of 264cm/s, mean gradient of 16 mmHg, and aortic valve area of 1.7 cm2.? Continue routine outpatient surveillance. DS: Summary Hospital Course Reason for hospitalization: This is a very pleasant 78-year-old female with with history of stroke and left-sided weakness, rheumatic fever status post mitral valve annuloplasty, atrial fibrillation status post permanent pacemaker insertion on chronic anticoagulation, aortic valve stenosis, hypertension, hyperlipidemia, and chronic kidney disease who presented to the emergency department for evaluation of left shoulder pain after fall. Hospital Course: The patient provides the following history. She reports ongoing issues with lower extremity edema, left greater than right, since March. Her left leg brace has not been feeling as well due to the swelling and neither have her shoes. She wears compression stockings and daughter puts compression dressings on her every couple of days which seems to help. More recently she has noticed that her left leg is feeling heavy. The last 2 days she has tripped and fallen on a bathroom rug which has been there for years and she reports that it seemed as though she could not get her left leg up. She fell onto her left side both times and luckily she did not sustain any significant injuries and she denies head trauma as well. Overall she is just feeling more weak than usual and is getting short of breath with day-to-day activity which is unusual for her. She denies fever, chills, sweats, syncope, near syncope, chest pain, pleuritic pain, palpitations, nausea, vomiting, diarrhea, and dysuria. No vertigo, visual changes, facial droop, difficulty speaking or swallowing, or increased weakness from baseline. In the ED: She was afebrile on arrival. Blood pressures have been running in the 150s to 180s systolic. Labs were significant for WBC count of 10.1, stable hemoglobin, INR 4.9, BUN 22, creatinine 1.10, proBNP 6000, troponin 0.023. Urine showed 3+ protein, trace ketones, 1+ leukocyte esterase, 11 to 20 WBC, many squamous cells, 4+ bacteria. Brain CT showed no acute intracranial process. Chest x-ray showed cardiomegaly with mild interstitial edema. Left shoulder x-ray showed no acute fracture. EKG showed a sinus rhythm with ST T-wave flattening in the inferolateral leads. She is being admitted
--- NOTE | 2023-07-16 15:39 | PC.NURSE ---
discharge instructions gone over with Johanna at [facility]. daughter Susie is here to take patient to [facility] via private vehicle. IV out. all belongings going with patient.
--- NOTE | 2023-07-16 16:10 | PC.NURSE ---
[facility] called stating the discharge med list was not faxed. I confirmed with Any Oliver NP that the patient had completed her antibiotcs as of 07/16/23 so there was nothing NEW on discharge papers. I called to relate the message and she was unavailable. I re-faxed the discharge papers for a 3rd time.
== END 2023-07-16 15:45 | DRG 291 ==
LOC: ANHED 14:27 → ANH3MEDSUR 17:59
PROVIDERS: Physician Assistant; Admitting Provider General Practice; Emergency Provider Emergency Medicine; PCP Internal Medicine; Visit Provider Nurse Practitioner
DX: I13.0 Hypertensive heart and chronic kidney disease with heart failure and stage 1 through stage 4 chronic kidney disease, or unspecified chronic kidney disease (principal); I50.33 Acute on chronic diastolic (congestive) heart failure; J18.9 Pneumonia, unspecified organism; I69.354 Hemiplegia and hemiparesis following cerebral infarction affecting left non-dominant side; N18.30 Chronic kidney disease, stage 3 unspecified; I48.0 Paroxysmal atrial fibrillation; I05.0 Rheumatic mitral stenosis; I35.0 Nonrheumatic aortic (valve) stenosis; D56.9 Thalassemia, unspecified; E53.8 Deficiency of other specified B group vitamins; E55.9 Vitamin D deficiency, unspecified; E78.5 Hyperlipidemia, unspecified; M25.512 Pain in left shoulder; M81.0 Age-related osteoporosis without current pathological fracture; R56.9 Unspecified convulsions; R73.03 Prediabetes; R29.6 Repeated falls; Z11.52 Encounter for screening for COVID-19; Z79.01 Long term (current) use of anticoagulants; Z95.0 Presence of cardiac pacemaker
CPT/HCPCS: 36415; 70450; 71045; 73030; 80048; 80053; 81001; 83735; 83880; 84484; 85025; 85027; 85610; 85730; 87086; 87635; 93005; 93306; 93970; 96366; 96375; 97110; 97161; 97165; 97530; 97535; 99285; A9270; G0378; J0696; J1940; J3475

== ENCOUNTER 2023-08-31 12:52 | Inpatient (IN) | payer MEDICARE, SELFPAY ==
[2023-08-31] VITALS (11 sets, daily range): BP systolic 96–136; BP diastolic 46–64; PULSE 50–72; RESP 13–19; TEMP 36.4; O2SAT 97–100
--- NOTE | ~2023-08-31 | XR_ITS ---
Portable chest x-ray Comparison: 08/31/2023 Clinical History: Congestion Findings: Small left pleural effusion present. There is mild bibasilar pulmonary edema/atelectasis. Cardiomediastinal silhouette is stable, with pacemaker device. Bones and soft tissues are unremarkab le. Impression: Mild bibasilar pulmonary edema/atelectasis with small left pleural effusion. Stable cardiomegaly, with pacemaker device. Reviewed, dictated and finalized at location . Impression: Mild bibasilar pulmonary edema/atelectasis with small left pleural effusion. Stable cardiomegaly, with pacemaker device.
--- NOTE | ~2023-08-31 | XR_ITS ---
EXAMINATION: XR chest 1V portable DATE: 08/31/2023 18:49 INDICATION: Cough. Weakness. Lethargy. TECHNIQUE: A single frontal view of the chest was obtained. COMPARISON: Chest single view 07/11/2023 FINDINGS: There is a small left pleural effusion. There are airspace opacities at the lung bases. No pneumothorax. Cardiomegaly is noted. Median sternotomy wires are noted. There is a left chest pacer w ith lead in right ventricle. IMPRESSION: 1. Airspace opacities at the lung bases, consistent with atelectasis versus pneumonia. 2. Small left pleural effusion. 3. Cardiomegaly. Reviewed, dictated and finalized at location E. IMPRESSION: 1. Airspace opacities at the lung bases, consistent with atelectasis versus pne umonia. 2. Small left pleural effusion. 3. Cardiomegaly.
--- NOTE | ~2023-08-31 | US_ITS ---
EXAMINATION: US renal BI DATE: 09/01/2023 16:02 INDICATION: Worsening renal function labs TECHNIQUE: Multiple ultrasound grayscale images of the kidneys were obtained. COMPARISON: None. FINDINGS: The right kidney measures 8.7 x 3.8 x 4.5 cm. The left kidney measures 7.9 x 3.9 x 3.0 cm. The kidney s demonstrate normal echogenicity. There is no hydronephrosis in either kidney. No stones identified . The bladder is normal. IMPRESSION: 1. Normal kidneys without hydronephrosis. Reviewed, dictated and finalized at location A.
[2023-08-31 18:37] LABS: Basophils Percent Auto 0.1 % (0.2-1.2); Eosinophils Percent Auto 0.1 % (0-4.4); Hematocrit 34.3 % (37.0-47.0); Hemoglobin 11.2 g/dL (12.0-15.0); Immature Granulocyte Absolute 0.02 K/mm3 (0.00-0.031); Immature Granulocyte Percent A 0.3 % (0-0.5); Lymphocytes Absolute Auto 1.05 K/mm3 (0.9-3.2); Lymphocytes Percent Auto 15.1 % (18.3-44.2); Mean Corpuscular HGB Conc 32.7 g/dl (32-36); Mean Corpuscular Hemoglobin 24.2 pg (26-34); Mean Corpuscular Volume 74.1 fl (80-100); Mean Platelet Volume 9.2 fl (7.4-10.4); Monocytes Absolute Auto 0.8 K/mm3 (0.1-0.6); Neutrophils Absolute Auto 5.1 K/mm3 (1.3-6.7); Neutrophils Percent Auto 73.4 % (45.5-73.1); Platelet Count Result 313 k/mm3 (150-375); Red Blood Count 4.63 M/mm3 (4.2-5.4); Red Cell Distribution Width 16.7 % (11.5-14.5)
--- NOTE | 2023-08-31 18:38 | ECG_ITS ---
SEE SCANNED COPY FOR CONFIRMED REPORT MTDD
--- NOTE | 2023-08-31 18:40 | ED.NAVMDI ---
HPI - Nausea/Vomiting/Diarrhea General Chief complaint: Nausea/Vomiting/Diarrhea Stated complaint: nausea Time Seen by Provider: 08/31/23 18:29 History of Present Illness HPI Narrative: Pt presents with nausea but no vomiting today. Pt is coming from [facility] where she has been since she was discharged from here after having pneumonia. Pt was too weak to walk after being ill so was sent there for rehab. Pt has been started and completed additional course of doxycycline there for what sounds like a persistent pneumonia. Related Data Home Medications Medication Instructions Recorded Confirmed cholecalciferol (vitamin D3) 125 125 mcg PO DAILY 02/13/23 08/27/23 mcg (5,000 unit) capsule mecobalamin (vitamin B12) 1,000 1,000 mcg sublingual DAILY 02/13/23 08/27/23 mcg disintegrating tablet,sublingual ferrous sulfate 325 mg (65 mg 325 mg PO BID 03/06/23 08/27/23 iron) tablet Allergies Allergy/AdvReac Type Severity Reaction Status Date / Time No Known Allergies Allergy Verified 07/11/23 12:04 Review of Systems Review of Systems: All systems reviewed & are unremarkable except as noted in HPI and below PMFSH Past Medical History Medical History Anemia Aortic stenosis Benign essential hypertension Cerebrovascular accident (1991) Attributed to thrombus formation on mitral valve; residual left-sided weakness. Chronic anticoagulation Chronic kidney disease, stage 3 Hearing loss Hyperlipidemia Osteoporosis Paroxysmal atrial fibrillation Pre-diabetes Rash Seizures Seizure following stroke in 1991 though non since that time, remains on Dilantin. Thalassemia Vitamin B12 deficiency Vitamin D deficiency Surgical History Surgical History History of permanent cardiac pacemaker placement Status post mitral valve annuloplasty Family History Family History Mother Cerebrovascular accident Father Hypertension Social History Social History Social History: Surrogate medical decision maker: Tatiana Way, daughter. 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 Spiritual care concerns: No Exam Const: General: healthy appearing and no acute distress Nutritional Appearance: thin Orientation/consciousness: patient oriented x3 Neck: Neck: no meningeal signs Resp: Effort & Inspection: normal respiratory effort Other: coarse bs b/l Cardio: Rate: regular rate Rhythm: regular rhythm Heart sounds: Murmur heart sound present GI: GI Palp: Yes Soft to palpation Auscultation: normal bowel sounds Skin: General skin exam: normal color Wounds: no wounds Neuro: General: patient oriented x3, moves all extremities and no focal motor deficits Speech: normal speech Extrem: General: edema bilateral Psych: Mental Status: mental status grossly normal Affect: normal affect Attitude: cooperative Course Vital Signs Vital signs: Vital Signs Temperature 97.6 F 08/31/23 12:54 Pulse Rate 72 08/31/23 12:54 Respiratory Rate 16 08/31/23 12:54 Blood Pressure 119/50 L 08/31/23 12:54 Pulse Oximetry 99 08/31/23 12:54 Temperature 97.6 F 08/31/23 12:54 Pulse Rate 50 L 08/31/23 22:22 Respiratory Rate 13 08/31/23 22:22 Blood Pressu
[2023-08-31 18:48] LABS: Alanine Aminotransferase 18 U/L (6-35); Albumin Level 3.1 g/dL (3.5-5.1); Alkaline Phosphatase 156 U/L (38-126); Anion Gap 6 mmol/L (4-12); Aspartate Amino Transferase 29 U/L (14-36); Bilirubin,Total 0.8 mg/dL (0.2-1.3); Blood Urea Nitrogen 79 mg/dL (7-17); Calcium 8.1 mg/dL (8.4-10.2); Carbon Dioxide 30 mmol/L (22-30); Chloride 96 mmol/L (98-107); Estimated Glomerular Filt Rate 27; Glucose 113 mg/dL (65-110); Lipase 297 U/L (23-300); Sodium 132 mmol/L (137-145)
[2023-08-31] MEDS: IPRATROPIUM BR 0.02% INH SOLN 0.5 MG/2.5 ML VIAL INHALATION (18:55)
[2023-08-31] MEDS: ALBUTEROL SULFATE NEB 2.5 MG/3 ML INH INHALATION (18:55)
[2023-08-31 19:16] LABS: INR 3.7; Prothrombin Time 40.1 Seconds (11.1-14.7)
[2023-08-31 19:19] LABS: NT Pro B Type Natriuretic Pept 3210 pg/mL (19.9-100); Troponin I 0.013 ng/mL (0.000-0.034)
[2023-08-31 19:34] LABS: Platelet Estimate Adequate (Adequate)
[2023-08-31 19:36] LABS: Anisocytosis 2+; Hypochromasia 1+; Schistocytes Rare
[2023-08-31 19:37] LABS: Microcytosis 1+ (NORMAL)
[2023-08-31 20:10] LABS: Appearance Urine Clear (Clear); Bilirubin Urine Negative (Negative); Blood Urine Negative (Negative); Color Urine Yellow (Yellow); Glucose Urine UA Negative (Negative); Ketones Urine Negative (Negative); Leukocyte Esterase Ur Negative LEU/UL (Negative); Nitrate Urine Negative (Negative); Protein Urine Negative (Negative); Specific Grav Ur 1.008 (1.001-1.035); Urobilinogen Urine 0.2 mg/dL (<2.0); pH Urine 6.5 (5.0-9.0)
[2023-08-31 20:31] LABS: Add Urine Microscopic? NO
[2023-08-31] MEDS: SODIUM CHLORIDE 0.9% IV 1,000 ML 75 ML IV CONT (22:45)
[2023-09-01] VITALS (10 sets, daily range): BP systolic 106–132; BP diastolic 40–58; PULSE 50–92; RESP 12–18; TEMP 36.1–36.6; O2SAT 92–100; BMI 18.5
--- NOTE | 2023-09-01 00:16 | ADMGEN ---
This patient, Kait Skaggs, was admitted to [facility] Surg Room 311-01. Patient/family oriented to hospital policies and general routines including ID bracelet, bed and alarms, visiting hours, pain management, procedures, bathroom and other care routines, personal items, smoking policy, room service/diet, and visiting hours. Information on how to activate the Rapid Response Team has been discussed. Patient/Family are encouraged to report perceived risks to care and to ask questions if they do not understand what they are told or what they should do.
[2023-09-01 07:09] LABS: Anion Gap 11 mmol/L (4-12); Blood Urea Nitrogen 83 mg/dL (7-17); Calcium 8.1 mg/dL (8.4-10.2); Carbon Dioxide 25 mmol/L (22-30); Chloride 101 mmol/L (98-107); Estimated Glomerular Filt Rate 25; Glucose 94 mg/dL (65-110); Potassium 4.1 mmol/L (3.4-5.0); Sodium 137 mmol/L (137-145)
[2023-09-01] MEDS: FERROUS SULFATE 325 MG TABLET DR PO (08:17)
[2023-09-01] MEDS: FOLIC ACID 1 MG TABLET PO (08:17)
[2023-09-01] MEDS: POTASSIUM CHLORIDE 20 MEQ ER TABLET PO (08:18)
[2023-09-01] MEDS: CYANOCOBALAMIN 1,000 MCG TABLET 1000 MCG PO (08:18)
[2023-09-01] MEDS: CHOLECALCIFEROL 1,000 UNITS TABLET 5000 UNITS PO (08:18)
[2023-09-01] MEDS: PHENYTOIN SODIUM 100 MG EXTENDED RELEASE CAP PO ×2 (08:48→21:50)
[2023-09-01 09:03] LABS: Hemoglobin 11.2 g/dL (12.0-15.0); Mean Corpuscular Hemoglobin 24.2 pg (26-34); Mean Corpuscular Volume 75.8 fl (80-100); Mean Platelet Volume 9.4 fl (7.4-10.4); Platelet Count Result 317 k/mm3 (150-375); Red Blood Count 4.62 M/mm3 (4.2-5.4); Red Cell Distribution Width 16.7 % (11.5-14.5); White Blood Count 7.7 K/mm3 (4.5-10.0)
[2023-09-01 09:05] LABS: Magnesium 1.8 mg/dL (1.6-2.3)
[2023-09-01 09:10] LABS: INR 3.7; Prothrombin Time 40.1 Seconds (11.1-14.7)
--- NOTE | 2023-09-01 10:36 | PM.IMHP ---
H&P: HPI History of Present Illness Date/Time: 09/01/23 10:36 Chief Complaint: nausea Narrative: This is an 78-year-old female patient currently in rehab at [facility] who was not feeling well yesterday so she was sent to the emergency department. Patient has weakness. She has been treated for recurrent pneumonia and. On emergency department workup she was found to an LISA above baseline as well as trending lower on her serum sodium. Patient was given IV fluids admitted on 75 mL/hr. On assessment today patient reports feeling weak and a little discomfort with external female catheter placement. Patient denies fever chills. She denies shortness of breath. Plan is to return for to [facility] for SNF after discharge. 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 Many of her home medications were held due to LISA, borderline low blood pressure and elevated INR at 3.7. Review of Systems Review of Systems: All systems reviewed & are unremarkable except as noted in HPI and below PMFSH Past Medical History Medical History Anemia Aortic stenosis Benign essential hypertension Cerebrovascular accident (1991) Attributed to thrombus formation on mitral valve; residual left-sided weakness. Chronic anticoagulation Chronic kidney disease, stage 3 Hearing loss Hyperlipidemia Osteoporosis Paroxysmal atrial fibrillation Pre-diabetes Rash Seizures Seizure following stroke in 1991 though non since that time, remains on Dilantin. Thalassemia Vitamin B12 deficiency Vitamin D deficiency Surgical History Surgical History History of permanent cardiac pacemaker placement Status post mitral valve annuloplasty Family History Family History Mother Cerebrovascular accident Father Hypertension Social History Social History Social History: Surrogate medical decision maker: Tatiana Way, daughter. 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 Spiritual care concerns: No Meds Home Medications and Allergies Home Medications Medication Instructions Recorded Confirmed Type warfarin 1 mg tablet (Coumadin) 1 mg PO DAILY #90 tabs 10/11/19 09/01/23 Rx cholecalciferol (vitamin D3) 125 125 mcg PO DAILY 02/13/23 09/01/23 History mcg (5,000 unit) capsule mecobalamin (vitamin B12) 1,000 1,000 mcg sublingual DAILY 02/13/23 09/01/23 History mcg disintegrating tablet,sublingual ferrous sulfate 325 mg (65 mg 325 mg PO BID 03/06/23 09/01/23 History iron) tablet losartan 25 mg tablet See Rx Instructions .Route 03/30/23 09/01/23 Rx .COMPLEX #90 tabs folic acid 1 mg tablet See Rx Instructions .Route 04/14/23 09/01/23 Rx .COMPLEX #90 tabs phenytoin sodium extended 100 mg See Rx Instructions .Route 04/14/23 09/01/23 Rx capsule .COMPLEX #180 caps sotalol 80 mg tablet See Rx Instructions .Route 05/13/23 09/01/23 Rx .COMPLEX #180 tabs furosemide 40 mg tablet (Lasix) 40 mg PO DAILY 09/01/23 09/01/23 History potassium chloride 20 mEq 20 meq PO DAILY 09/01/23 09/01/23 History tablet,extended release Allergies Allergy/AdvReac Type Severity Reaction Status Date / Time No Known Allergies Al
[2023-09-02] VITALS (7 sets, daily range): BP systolic 108–142; BP diastolic 48–86; PULSE 50–101; RESP 16–18; TEMP 36.1–36.8; O2SAT 97–100; BMI 18.5
[2023-09-02] MEDS: SODIUM CHLORIDE 0.9% IV 1,000 ML 75 ML IV CONT ×2 (06:24→20:28)
[2023-09-02 06:38] LABS: Basophils Percent Auto 0.3 % (0.2-1.2); Eosinophils Percent Auto 0.3 % (0-4.4); Hematocrit 32.8 % (37.0-47.0); Hemoglobin 10.7 g/dL (12.0-15.0); Immature Granulocyte Absolute 0.02 K/mm3 (0.00-0.031); Immature Granulocyte Percent A 0.3 % (0-0.5); Lymphocytes Absolute Auto 0.93 K/mm3 (0.9-3.2); Lymphocytes Percent Auto 13.6 % (18.3-44.2); Mean Corpuscular HGB Conc 32.6 g/dl (32-36); Mean Corpuscular Hemoglobin 24.4 pg (26-34); Mean Corpuscular Volume 74.9 fl (80-100); Mean Platelet Volume 9.7 fl (7.4-10.4); Monocytes Absolute Auto 0.7 K/mm3 (0.1-0.6); Monocytes Percent Auto 10.4 % (2.6-8.5); Neutrophils Absolute Auto 5.1 K/mm3 (1.3-6.7); Neutrophils Percent Auto 75.1 % (45.5-73.1); Platelet Count Result 300 k/mm3 (150-375); Red Blood Count 4.38 M/mm3 (4.2-5.4); Red Cell Distribution Width 16.4 % (11.5-14.5); White Blood Count 6.8 K/mm3 (4.5-10.0)
[2023-09-02 06:41] LABS: INR 3.8; Prothrombin Time 40.6 Seconds (11.1-14.7)
[2023-09-02 06:51] LABS: Alanine Aminotransferase 17 U/L (6-35); Albumin Level 2.7 g/dL (3.5-5.1); Alkaline Phosphatase 140 U/L (38-126); Anion Gap 6 mmol/L (4-12); Aspartate Amino Transferase 31 U/L (14-36); Bilirubin,Total 0.9 mg/dL (0.2-1.3); Blood Urea Nitrogen 74 mg/dL (7-17); Calcium 7.4 mg/dL (8.4-10.2); Carbon Dioxide 23 mmol/L (22-30); Chloride 105 mmol/L (98-107); Estimated Glomerular Filt Rate 31; Glucose 87 mg/dL (65-110); Magnesium 1.8 mg/dL (1.6-2.3); Potassium 3.7 mmol/L (3.4-5.0); Sodium 134 mmol/L (137-145)
[2023-09-02 07:14] LABS: Platelet Estimate Adequate (Adequate)
[2023-09-02 07:16] LABS: Anisocytosis 1+; Microcytosis 1+ (NORMAL); Ovalocytes 1+; Schistocytes None Seen
[2023-09-02] MEDS: CYANOCOBALAMIN 1,000 MCG TABLET 1000 MCG PO (08:25)
[2023-09-02] MEDS: PHENYTOIN SODIUM 100 MG EXTENDED RELEASE CAP PO ×2 (08:26→20:30)
[2023-09-02] MEDS: CHOLECALCIFEROL 1,000 UNITS TABLET 5000 UNITS PO (08:26)
[2023-09-02] MEDS: FOLIC ACID 1 MG TABLET PO (08:26)
[2023-09-02] MEDS: POTASSIUM CHLORIDE 20 MEQ ER TABLET PO (08:27)
--- NOTE | 2023-09-02 08:45 | PM.IMPN ---
Progress Note: A&P Assessment and Plan (1) Acute kidney injury superimposed on CKD: Code(s): N17.9 - Acute kidney failure, unspecified; N18.9 - Chronic kidney disease, unspecified Status: Acute Assessment and Plan: Creatinine is responding to current IV fluids. Today 1.60, down from 1.90. Baseline is around 1.10. - 75 ml/hr NS IV. Gentle fluid resuscitation due to patients HF history - Renal US: The right kidney measures 8.7 x 3.8 x 4.5 cm. The left kidney measures 7.9 x 3.9 x 3.0 cm. The kidneys demonstrate normal echogenicity. There is no hydronephrosis in either kidney.? No stones identified. The bladder is normal. - Monitor I/O - Avoid nephrotoxic medications. Holding home lasix. (2) Chronic atrial fibrillation: Code(s): I48.20 - Chronic atrial fibrillation, unspecified Status: Chronic Assessment and Plan: [employer] pacemaker in place. Patient remains in sinus rhythm, however HR remains in the 50's. Concern that the low HR is causing the low BP which in turn is causing the LISA. - EKG: paced sinus rhythm - Echo 07/13/23: left ventricular hypertrophy with preserved systolic function, severe bilateral dilation, mildly stenotic aortic valve, mild mitral regurgitation and stenosis, paced rhythm. - Current home medication: sotalol 80mg daily. Currently held due to ongoing low blood pressures and bradycardia. - Anticoagulation: warfarin 1 mg daily. Currently held due to supratherapeutic INR. - Electric Distribution Engineer: Dr. Anand - Pacemaker interrogation ordered (3) Benign essential hypertension: Code(s): I10 - Essential (primary) hypertension Status: Acute Assessment and Plan: Patient remains borderline hypotensive throughout stay. - Continue holding home antihypertensive medications: losartan 25 mg and sotalol 80 mg (4) Seizures: Code(s): R56.9 - Unspecified convulsions Status: Acute Assessment and Plan: Well controlled on home medication. - Continue Dilantin 100 mg q12h (5) Congestive heart failure: Qualifiers: Heart failure type: diastolic Heart failure chronicity: acute on chronic Qualified Code(s): I50.33 - Acute on chronic diastolic (congestive) heart failure Code(s): I50.9 - Heart failure, unspecified Status: Acute Assessment and Plan: Echo 07/13/23: left ventricular hypertrophy with preserved systolic function. severe bilateral dilation. - Continue to hold lasix 40 mg daily due to ongoing LISA - Holding antihypertensives due to ongoing borderline hypotension Time Spent With Patient Time with patient: 25 - 35 minutes Subjective Date/time seen: 09/02/23 08:45 Interval history: 78-year-old female with with history of stroke and left-sided weakness, rheumatic fever status post mitral valve annuloplasty, atrial fibrillation status post permanent pacemaker insertion on chronic anticoagulation, aortic valve stenosis, hypertension, hyperlipidemia, and chronic kidney disease who presented to the hospital for weakness from [facility]. Patient is pleasant lying in bed. She continues to have a productive cough. Patient previously diagnosed with pneumonia and completed course of antibiotics. Ordered an incentive spirometer due to continued coarse lung sounds. Patient WBC remains normal. Will also put in PT/OT. Patients creatinine is improving with current fluids. Her heart rate remains in the 50's. Will get a pacemaker interrogation. Possible cause of LISA could be hypoperfusion from borderline hypotension secondary to bradycardia. Review of Systems Review of Systems: All systems reviewed & are unremarkable except as noted in HPI and below Exam Narrative: AF HR 51 RR 16 SpO2 100 BP 121/48 General: female in no acute respiratory distress who is nontoxic appearing, lying semi recumbent in bed. HEENT: Normocephalic. Atraumatic. Pupils equal round reactive to light. Extraocular movement intact. Sclera clear and anicte
[2023-09-03] VITALS (9 sets, daily range): BP systolic 122–161; BP diastolic 41–54; PULSE 50–62; RESP 16–18; TEMP 35.9–36.7; O2SAT 92–100
[2023-09-03 06:37] LABS: Basophils Percent Auto 0.3 % (0.2-1.2); Eosinophils Percent Auto 0.3 % (0-4.4); Hematocrit 30.5 % (37.0-47.0); Hemoglobin 10.2 g/dL (12.0-15.0); Immature Granulocyte Absolute 0.03 K/mm3 (0.00-0.031); Immature Granulocyte Percent A 0.5 % (0-0.5); Lymphocytes Absolute Auto 1.02 K/mm3 (0.9-3.2); Lymphocytes Percent Auto 15.6 % (18.3-44.2); Mean Corpuscular HGB Conc 33.4 g/dl (32-36); Mean Corpuscular Hemoglobin 24.7 pg (26-34); Mean Corpuscular Volume 73.8 fl (80-100); Mean Platelet Volume 9.8 fl (7.4-10.4); Monocytes Absolute Auto 0.7 K/mm3 (0.1-0.6); Monocytes Percent Auto 10.6 % (2.6-8.5); Neutrophils Absolute Auto 4.8 K/mm3 (1.3-6.7); Neutrophils Percent Auto 72.7 % (45.5-73.1); Platelet Count Result 273 k/mm3 (150-375); Red Blood Count 4.13 M/mm3 (4.2-5.4); Red Cell Distribution Width 16.4 % (11.5-14.5); White Blood Count 6.5 K/mm3 (4.5-10.0)
[2023-09-03 06:47] LABS: INR 3.4; Prothrombin Time 37.7 Seconds (11.1-14.7)
[2023-09-03 06:57] LABS: Alanine Aminotransferase 18 U/L (6-35); Albumin Level 2.5 g/dL (3.5-5.1); Alkaline Phosphatase 141 U/L (38-126); Anion Gap 3 mmol/L (4-12); Aspartate Amino Transferase 32 U/L (14-36); Bilirubin,Total 0.8 mg/dL (0.2-1.3); Blood Urea Nitrogen 55 mg/dL (7-17); Calcium 7.2 mg/dL (8.4-10.2); Carbon Dioxide 24 mmol/L (22-30); Chloride 111 mmol/L (98-107); Estimated Glomerular Filt Rate 33; Glucose 87 mg/dL (65-110); Magnesium 1.9 mg/dL (1.6-2.3); Potassium 3.6 mmol/L (3.4-5.0); Sodium 138 mmol/L (137-145)
[2023-09-03 07:12] LABS: Anisocytosis 1+; Microcytosis 1+ (NORMAL); Platelet Estimate Adequate (Adequate)
[2023-09-03 07:13] LABS: Ovalocytes 1+; Schistocytes Rare; Target Cells 1+
--- NOTE | 2023-09-03 07:29 | PM.IMPN ---
Progress Note: A&P Assessment and Plan (1) Acute kidney injury superimposed on CKD: Code(s): N17.9 - Acute kidney failure, unspecified; N18.9 - Chronic kidney disease, unspecified Status: Acute Assessment and Plan: Creatinine is responding to current IV fluids. Today 1.60, down from 1.90. Baseline is around 1.10. - Discontinued NS due to worsening edema and edema seen on CXR. - Renal US: The right kidney measures 8.7 x 3.8 x 4.5 cm. The left kidney measures 7.9 x 3.9 x 3.0 cm. The kidneys demonstrate normal echogenicity. There is no hydronephrosis in either kidney.? No stones identified. The bladder is normal. - Monitor I/O - Avoid nephrotoxic medications. Holding home lasix. (2) Chronic atrial fibrillation: Code(s): I48.20 - Chronic atrial fibrillation, unspecified Status: Chronic Assessment and Plan: Medtronic pacemaker in place. Patient remains in sinus rhythm, however HR remains in the 50's. Concern that the low HR is causing the low BP which in turn is causing the LISA. - EKG: paced sinus rhythm - Echo 07/13/23: left ventricular hypertrophy with preserved systolic function, severe bilateral dilation, mildly stenotic aortic valve, mild mitral regurgitation and stenosis, paced rhythm. - Current home medication: sotalol 80mg daily. Currently held due to ongoing low blood pressures and bradycardia. - Anticoagulation: warfarin 1 mg daily. Currently held due to supratherapeutic INR. - Eeo Officer: Dr. Anand - Pacemaker interrogation ordered (3) Benign essential hypertension: Code(s): I10 - Essential (primary) hypertension Status: Acute Assessment and Plan: Patient remains borderline hypotensive throughout stay. - Continue holding home antihypertensive medications: losartan 25 mg and sotalol 80 mg (4) Seizures: Code(s): R56.9 - Unspecified convulsions Status: Acute Assessment and Plan: Well controlled on home medication. - Continue Dilantin 100 mg q12h (5) Congestive heart failure: Qualifiers: Heart failure chronicity: acute on chronic Heart failure type: diastolic Qualified Code(s): I50.33 - Acute on chronic diastolic (congestive) heart failure Code(s): I50.9 - Heart failure, unspecified Status: Acute Assessment and Plan: Echo 07/13/23: left ventricular hypertrophy with preserved systolic function. severe bilateral dilation. - CXR 09/03/23: Mild bibasilar pulmonary edema/atelectasis with small left pleural effusion. Stable cardiomegaly, with pacemaker device. - Lasix IV x1. Restart home lasix PO. - Holding antihypertensives due to ongoing borderline hypotension Time Spent With Patient Time with patient: 25 - 35 minutes Subjective Date/time seen: 09/03/23 07:29 Interval history: 78-year-old female with with history of stroke and left-sided weakness, rheumatic fever status post mitral valve annuloplasty, atrial fibrillation status post permanent pacemaker insertion on chronic anticoagulation, aortic valve stenosis, hypertension, hyperlipidemia, and chronic kidney disease who presented to the hospital for weakness from [facility]. Patient is pleasant lying in bed. She states she is much weaker today and was unable to do all of her PT therapy due to weakness. She continues to have a productive cough and crackles on auscultation. Her fluids were stopped and a chest XR revealed mild pulmonary edema. She was given a dose of IV lasix and her home lasix was resumed. She denies chest pain, shortness of breath, palpitations, nasuea/vomiting and changes in bowel/bladder. Review of Systems Review of Systems: All systems reviewed & are unremarkable except as noted in HPI and below Exam Narrative: AF HR 60 RR 18 SpO2 100 BP 161/54 General: female in no acute respiratory distress who is nontoxic appearing, lying semi recumbent in bed. HEENT: Normocephalic. Atraumatic. Pupils equal round reactive to light. Extraoc
[2023-09-03] MEDS: PHENYTOIN SODIUM 100 MG EXTENDED RELEASE CAP PO ×2 (09:04→20:07)
[2023-09-03] MEDS: FERROUS SULFATE 325 MG TABLET DR PO (09:05)
[2023-09-03] MEDS: FOLIC ACID 1 MG TABLET PO (09:05)
[2023-09-03] MEDS: CYANOCOBALAMIN 1,000 MCG TABLET 1000 MCG PO (09:05)
[2023-09-03] MEDS: POTASSIUM CHLORIDE 20 MEQ ER TABLET PO (09:05)
[2023-09-03] MEDS: CHOLECALCIFEROL 1,000 UNITS TABLET 5000 UNITS PO (09:06)
[2023-09-03] MEDS: FUROSEMIDE INJ 40 MG/4 ML VIAL IV PUSH (12:02)
[2023-09-03] MEDS: guaiFENesin 12 HR 600 MG TABCR PO (20:07)
[2023-09-04] VITALS (9 sets, daily range): BP systolic 98–148; BP diastolic 46–53; PULSE 53–66; RESP 12–16; TEMP 36.1–36.5; O2SAT 98–100
[2023-09-04 06:33] LABS: Basophils Percent Auto 0.2 % (0.2-1.2); Hematocrit 36.1 % (37.0-47.0); Hemoglobin 11.7 g/dL (12.0-15.0); Immature Granulocyte Absolute 0.03 K/mm3 (0.00-0.031); Immature Granulocyte Percent A 0.3 % (0-0.5); Lymphocytes Absolute Auto 1.27 K/mm3 (0.9-3.2); Lymphocytes Percent Auto 14.7 % (18.3-44.2); Mean Corpuscular HGB Conc 32.4 g/dl (32-36); Mean Corpuscular Hemoglobin 24.3 pg (26-34); Mean Corpuscular Volume 74.9 fl (80-100); Mean Platelet Volume 9.9 fl (7.4-10.4); Monocytes Absolute Auto 0.8 K/mm3 (0.1-0.6); Monocytes Percent Auto 8.9 % (2.6-8.5); Neutrophils Absolute Auto 6.5 K/mm3 (1.3-6.7); Neutrophils Percent Auto 75.9 % (45.5-73.1); Platelet Count Result 271 k/mm3 (150-375); Red Blood Count 4.82 M/mm3 (4.2-5.4); White Blood Count 8.6 K/mm3 (4.5-10.0)
[2023-09-04 06:43] LABS: INR 2.1; Prothrombin Time 25.5 Seconds (11.1-14.7)
[2023-09-04 06:47] LABS: Alanine Aminotransferase 21 U/L (6-35); Albumin Level 3.3 g/dL (3.5-5.1); Alkaline Phosphatase 189 U/L (38-126); Anion Gap 2 mmol/L (4-12); Aspartate Amino Transferase 37 U/L (14-36); Bilirubin,Total 1.2 mg/dL (0.2-1.3); Blood Urea Nitrogen 52 mg/dL (7-17); Calcium 8.2 mg/dL (8.4-10.2); Carbon Dioxide 31 mmol/L (22-30); Chloride 106 mmol/L (98-107); Estimated Glomerular Filt Rate 36; Glucose 94 mg/dL (65-110); Potassium 3.6 mmol/L (3.4-5.0); Sodium 139 mmol/L (137-145)
[2023-09-04] MEDS: CHOLECALCIFEROL 1,000 UNITS TABLET 5000 UNITS PO (08:10)
[2023-09-04] MEDS: FUROSEMIDE INJ 40 MG/4 ML VIAL IV PUSH (08:10)
[2023-09-04] MEDS: guaiFENesin 12 HR 600 MG TABCR PO ×2 (08:11→20:49)
[2023-09-04] MEDS: FERROUS SULFATE 325 MG TABLET DR PO ×2 (08:11→18:11)
[2023-09-04] MEDS: DOCUSATE SODIUM 100 MG CAPSULE PO ×2 (08:11→18:11)
[2023-09-04] MEDS: CYANOCOBALAMIN 1,000 MCG TABLET 1000 MCG PO (08:11)
[2023-09-04] MEDS: FOLIC ACID 1 MG TABLET PO (08:11)
[2023-09-04] MEDS: POTASSIUM CHLORIDE 20 MEQ ER TABLET PO (08:11)
[2023-09-04] MEDS: PHENYTOIN SODIUM 100 MG EXTENDED RELEASE CAP PO ×2 (08:11→20:49)
--- NOTE | 2023-09-04 08:18 | PM.IMPN ---
Progress Note: A&P Assessment and Plan (1) Acute kidney injury superimposed on CKD: Code(s): N17.9 - Acute kidney failure, unspecified; N18.9 - Chronic kidney disease, unspecified Status: Acute Assessment and Plan: Creatinine is responding to current IV fluids. Today 1.40, down from 1.90. Baseline is around 1.10. - Discontinued NS due to worsening edema and edema seen on CXR. - Renal US: The right kidney measures 8.7 x 3.8 x 4.5 cm. The left kidney measures 7.9 x 3.9 x 3.0 cm. The kidneys demonstrate normal echogenicity. There is no hydronephrosis in either kidney.? No stones identified. The bladder is normal. - Monitor I/O. Urine output remains WNL. - Avoid nephrotoxic medications. (2) Chronic atrial fibrillation: Code(s): I48.20 - Chronic atrial fibrillation, unspecified Status: Chronic Assessment and Plan: Medtronic pacemaker in place. Patient remains in sinus rhythm, however HR remains in the 50's. Concern that the low HR is causing the low BP which in turn is causing the LISA. - EKG: paced sinus rhythm - Echo 07/13/23: left ventricular hypertrophy with preserved systolic function, severe bilateral dilation, mildly stenotic aortic valve, mild mitral regurgitation and stenosis, paced rhythm. - Current home medication: sotalol 80mg daily. Currently held due to ongoing low blood pressures and bradycardia. - Anticoagulation: warfarin 1 mg daily - Grab Hooker: Dr. Anand - Pacemaker interrogation ordered (3) Benign essential hypertension: Code(s): I10 - Essential (primary) hypertension Status: Acute Assessment and Plan: Patient no longer borderline hypotensive. Will restart her losartan 25 mg. Will continue to hold the sotalol 80 mg due to ongoing bradycardia. - Monitor blood pressures (4) Seizures: Code(s): R56.9 - Unspecified convulsions Status: Acute Assessment and Plan: Well controlled on home medication. - Continue Dilantin 100 mg q12h (5) Congestive heart failure: Qualifiers: Heart failure chronicity: acute on chronic Heart failure type: diastolic Qualified Code(s): I50.33 - Acute on chronic diastolic (congestive) heart failure Code(s): I50.9 - Heart failure, unspecified Status: Acute Assessment and Plan: Echo 07/13/23: left ventricular hypertrophy with preserved systolic function. severe bilateral dilation. - CXR 09/03/23: Mild bibasilar pulmonary edema/atelectasis with small left pleural effusion. Stable cardiomegaly, with pacemaker device. - Lasix IV x1. Restart home lasix PO. (6) Severe malnutrition: Code(s): E43 - Unspecified severe protein-calorie malnutrition Status: Acute Assessment and Plan: Severe protein calorie malnutrition related to loss of appetite as evidenced by weight loss 6%/ 1 month; intakes <75% needs > 7days; moderate muscle wasting temporalis,shoulder, clavicle; moderate fat loss to buccal fat pads, ribs. - Supplement Time Spent With Patient Time with patient: 25 - 35 minutes Subjective Date/time seen: 09/04/23 08:18 Interval history: 78-year-old female with with history of stroke and left-sided weakness, rheumatic fever status post mitral valve annuloplasty, atrial fibrillation status post permanent pacemaker insertion on chronic anticoagulation, aortic valve stenosis, hypertension, hyperlipidemia, and chronic kidney disease who presented to the hospital for weakness from [facility]. Patient is pleasant lying comfortably in bed. She states that her cough has improved and she does not feel short of breath. She continues to endorse weakness, but continues to work with PT/OT. Patient uses wheelchair at baseline. She was restarted on her home PO lasix due to pulmonary edema on chest XR. Her kidney function continues to improve at this time and urine output is within normal limits. Patient denies chest pain, shortness of breath, nausea/vomiting and changes in bowel/b
[2023-09-04 08:23] LABS: Hypochromasia 1+; Platelet Estimate Adequate (Adequate); Schistocytes 1+; Target Cells 1+
[2023-09-04 08:25] LABS: Anisocytosis 1+; Microcytosis 1+ (NORMAL)
[2023-09-04] MEDS: LOSARTAN POTASSIUM 25 MG TABLET PO (10:55)
--- NOTE | 2023-09-04 11:05 | P.CDI_ITS ---
CDI Query Clarification Request BMI 18.5 Nutritional Diagnostic Statement Severe protein calorie malnutrition related to loss of appetite as evidenced by weight loss 6%/ 1 month; intakes <75% needs > 7days; moderate muscle wasting temporalis,shoulder, clavicle; moderate fat loss to buccal fat pads, ribs. Please refer to the comprehensive nutrition assessment for further information. Please clarify severity of protein calorie malnutrition if known: * Mild * Moderate * Severe * Other/ Unspecified <Tatiana Taylor RN - Last Filed: 09/04/23 11:15> Clarified Diagnosis Clarified Diagnosis: Severe protein calorie malnutrition <Viviana Ferrell PA-C - Last Filed: 09/04/23 15:10>
[2023-09-04] MEDS: WARFARIN (*PBKC) 1 MG TABLET PO (18:11)
[2023-09-05] VITALS (12 sets, daily range): BP systolic 88–140; BP diastolic 42–79; PULSE 57–74; RESP 14–18; TEMP 36–36.5; O2SAT 97–100
[2023-09-05 05:25] LABS: Basophils Percent Auto 0.4 % (0.2-1.2); Eosinophils Percent Auto 0.5 % (0-4.4); Hematocrit 34.5 % (37.0-47.0); Hemoglobin 11.2 g/dL (12.0-15.0); Immature Granulocyte Absolute 0.03 K/mm3 (0.00-0.031); Immature Granulocyte Percent A 0.4 % (0-0.5); Lymphocytes Absolute Auto 1.37 K/mm3 (0.9-3.2); Lymphocytes Percent Auto 16.9 % (18.3-44.2); Mean Corpuscular HGB Conc 32.5 g/dl (32-36); Mean Corpuscular Hemoglobin 24.2 pg (26-34); Mean Corpuscular Volume 74.7 fl (80-100); Mean Platelet Volume 9.9 fl (7.4-10.4); Monocytes Absolute Auto 0.8 K/mm3 (0.1-0.6); Monocytes Percent Auto 10.3 % (2.6-8.5); Neutrophils Absolute Auto 5.8 K/mm3 (1.3-6.7); Neutrophils Percent Auto 71.5 % (45.5-73.1); Platelet Count Result 246 k/mm3 (150-375); Red Blood Count 4.62 M/mm3 (4.2-5.4); Red Cell Distribution Width 16.5 % (11.5-14.5); White Blood Count 8.1 K/mm3 (4.5-10.0)
[2023-09-05 05:37] LABS: Alanine Aminotransferase 18 U/L (6-35); Albumin Level 3.1 g/dL (3.5-5.1); Alkaline Phosphatase 158 U/L (38-126); Anion Gap 2 mmol/L (4-12); Aspartate Amino Transferase 34 U/L (14-36); Bilirubin,Total 1.2 mg/dL (0.2-1.3); Blood Urea Nitrogen 51 mg/dL (7-17); Calcium 8.3 mg/dL (8.4-10.2); Carbon Dioxide 29 mmol/L (22-30); Chloride 103 mmol/L (98-107); Estimated Glomerular Filt Rate 39; Glucose 93 mg/dL (65-110); INR 1.8; Magnesium 2.2 mg/dL (1.6-2.3); Prothrombin Time 21.7 Seconds (11.1-14.7); Sodium 134 mmol/L (137-145)
[2023-09-05 05:50] LABS: Hypochromasia 1+; Platelet Estimate Adequate (Adequate)
[2023-09-05 05:51] LABS: Anisocytosis 1+; Ovalocytes 1+; Schistocytes None Seen; Target Cells 1+
[2023-09-05] MEDS: FERROUS SULFATE 325 MG TABLET DR PO ×2 (08:51→17:35)
[2023-09-05] MEDS: PHENYTOIN SODIUM 100 MG EXTENDED RELEASE CAP PO ×2 (08:51→20:57)
[2023-09-05] MEDS: DOCUSATE SODIUM 100 MG CAPSULE PO ×2 (08:51→17:35)
[2023-09-05] MEDS: FUROSEMIDE INJ 40 MG/4 ML VIAL IV PUSH (08:51)
[2023-09-05] MEDS: CYANOCOBALAMIN 1,000 MCG TABLET 1000 MCG PO (08:51)
[2023-09-05] MEDS: CHOLECALCIFEROL 1,000 UNITS TABLET 5000 UNITS PO (08:51)
[2023-09-05] MEDS: guaiFENesin 12 HR 600 MG TABCR PO ×2 (08:52→20:57)
[2023-09-05] MEDS: FOLIC ACID 1 MG TABLET PO (08:52)
[2023-09-05] MEDS: POTASSIUM CHLORIDE 20 MEQ ER TABLET PO (08:52)
[2023-09-05] MEDS: LOSARTAN POTASSIUM 25 MG TABLET PO (08:52)
[2023-09-05] MEDS: SOTALOL HCL 80 MG TABLET PO (09:10)
--- NOTE | 2023-09-05 14:10 | PM.IMPN ---
Progress Note: A&P Assessment and Plan (1) Acute kidney injury superimposed on CKD: Code(s): N17.9 - Acute kidney failure, unspecified; N18.9 - Chronic kidney disease, unspecified Status: Acute Assessment and Plan: Today 1.30, down from 1.90. - Discontinued NS due to worsening edema and edema seen on CXR. - Renal US: The right kidney measures 8.7 x 3.8 x 4.5 cm. The left kidney measures 7.9 x 3.9 x 3.0 cm. The kidneys demonstrate normal echogenicity. There is no hydronephrosis in either kidney.? No stones identified. The bladder is normal. - Monitor I/O. Urine output remains WNL. - Avoid nephrotoxic medications. (2) Chronic atrial fibrillation: Code(s): I48.20 - Chronic atrial fibrillation, unspecified Status: Chronic Assessment and Plan: [facility] pacemaker in place. Patient remains in sinus rhythm, however HR remains in the 50's. Concern that the low HR is causing the low BP which in turn is causing the LISA. - EKG: paced sinus rhythm - Echo 07/13/23: left ventricular hypertrophy with preserved systolic function, severe bilateral dilation, mildly stenotic aortic valve, mild mitral regurgitation and stenosis, paced rhythm. - Current home medication: sotalol 80mg daily. Currently held due to ongoing low blood pressures and bradycardia. - Anticoagulation: warfarin 1 mg daily - Lanolin Plant Operator: Dr. Anand - Pacemaker interrogation ordered (3) Benign essential hypertension: Code(s): I10 - Essential (primary) hypertension Status: Acute Assessment and Plan: Patient hypotensive. Will hold her losartan 25 mg and sotalol 80 mg. Started a slow 500 ml bolus at 75 ml/hr. - Monitor blood pressures (4) Seizures: Code(s): R56.9 - Unspecified convulsions Status: Acute Assessment and Plan: Well controlled on home medication. - Continue Dilantin 100 mg q12h (5) Congestive heart failure: Qualifiers: Heart failure type: diastolic Heart failure chronicity: acute on chronic Qualified Code(s): I50.33 - Acute on chronic diastolic (congestive) heart failure Code(s): I50.9 - Heart failure, unspecified Status: Acute Assessment and Plan: Echo 07/13/23: left ventricular hypertrophy with preserved systolic function. severe bilateral dilation. - CXR 09/03/23: Mild bibasilar pulmonary edema/atelectasis with small left pleural effusion. Stable cardiomegaly, with pacemaker device. - Lasix IV x1. Restart home lasix PO. (6) Severe malnutrition: Code(s): E43 - Unspecified severe protein-calorie malnutrition Status: Acute Assessment and Plan: Severe protein calorie malnutrition related to loss of appetite as evidenced by weight loss 6%/ 1 month; intakes <75% needs > 7days; moderate muscle wasting temporalis,shoulder, clavicle; moderate fat loss to buccal fat pads, ribs. - Supplement Time Spent With Patient Time with patient: 25 - 35 minutes Subjective Date/time seen: 09/05/23 14:10 Interval history: 78-year-old female with with history of stroke and left-sided weakness, rheumatic fever status post mitral valve annuloplasty, atrial fibrillation status post permanent pacemaker insertion on chronic anticoagulation, aortic valve stenosis, hypertension, hyperlipidemia, and chronic kidney disease who presented to the hospital for weakness from [facility]. Patient is pleasant sitting on side of the bed working with PT. She continues to endorse weakness, but strength is improving with PT/OT. She was at [facility] prior to admission for weakness. Due to LISA improving and lungs remaining clear to auscultation on her lasix was planning to DC patient back to [facility] for further rehab. Patient was not discharged due to a low blood pressure of 88/42. Given a slow bolus of 500 ml and will reevaluate. Waiting on a pacemaker interrogation from [facility]. Depending on pacemaker interrogation will need to consult cardiology. Madai
[2023-09-05 14:21] LABS: SARS-CoV-2 RNA PCR Negative (Negative)
[2023-09-05] MEDS: SODIUM CHLORIDE 0.9% IV 500 ML 75 ML IV CONT (15:40)
[2023-09-05] MEDS: WARFARIN (*PBKC) 1 MG TABLET PO (17:35)
[2023-09-06] VITALS: PULSE 56
[2023-09-06 04:00] VITALS: PULSE 57
[2023-09-06 06:00] VITALS: BP 129/52; PULSE 61; RESP 20; TEMP 36.7; O2SAT 100
[2023-09-06 06:19] LABS: Basophils Percent Auto 0.4 % (0.2-1.2); Eosinophils Absolute Auto 0.1 K/mm3 (0-0.3); Eosinophils Percent Auto 1.2 % (0-4.4); Hematocrit 35.1 % (37.0-47.0); Hemoglobin 11.2 g/dL (12.0-15.0); Immature Granulocyte Absolute 0.02 K/mm3 (0.00-0.031); Immature Granulocyte Percent A 0.2 % (0-0.5); Lymphocytes Absolute Auto 1.57 K/mm3 (0.9-3.2); Lymphocytes Percent Auto 18.8 % (18.3-44.2); Mean Corpuscular HGB Conc 31.9 g/dl (32-36); Mean Corpuscular Hemoglobin 24.8 pg (26-34); Mean Corpuscular Volume 77.7 fl (80-100); Monocytes Absolute Auto 0.9 K/mm3 (0.1-0.6); Monocytes Percent Auto 10.2 % (2.6-8.5); Neutrophils Absolute Auto 5.8 K/mm3 (1.3-6.7); Neutrophils Percent Auto 69.2 % (45.5-73.1); Platelet Count Result 241 k/mm3 (150-375); Red Blood Count 4.52 M/mm3 (4.2-5.4); Red Cell Distribution Width 17.2 % (11.5-14.5); White Blood Count 8.4 K/mm3 (4.5-10.0)
[2023-09-06 06:29] LABS: INR 1.7; Prothrombin Time 20.9 Seconds (11.1-14.7)
[2023-09-06 06:32] LABS: Alanine Aminotransferase 19 U/L (6-35); Albumin Level 3.3 g/dL (3.5-5.1); Alkaline Phosphatase 163 U/L (38-126); Anion Gap 4 mmol/L (4-12); Aspartate Amino Transferase 37 U/L (14-36); Blood Urea Nitrogen 45 mg/dL (7-17); Calcium 8.7 mg/dL (8.4-10.2); Carbon Dioxide 31 mmol/L (22-30); Chloride 102 mmol/L (98-107); Estimated Glomerular Filt Rate 39; Glucose 95 mg/dL (65-110); Magnesium 2.3 mg/dL (1.6-2.3); Potassium 4.2 mmol/L (3.4-5.0); Sodium 137 mmol/L (137-145)
[2023-09-06 08:00] VITALS: PULSE 54
[2023-09-06] MEDS: FERROUS SULFATE 325 MG TABLET DR PO (08:54)
[2023-09-06] MEDS: CHOLECALCIFEROL 1,000 UNITS TABLET 5000 UNITS PO (08:55)
[2023-09-06] MEDS: FOLIC ACID 1 MG TABLET PO (08:55)
[2023-09-06] MEDS: CYANOCOBALAMIN 1,000 MCG TABLET 1000 MCG PO (08:55)
[2023-09-06] MEDS: DOCUSATE SODIUM 100 MG CAPSULE PO (08:55)
[2023-09-06] MEDS: POTASSIUM CHLORIDE 20 MEQ ER TABLET PO (08:55)
[2023-09-06] MEDS: guaiFENesin 12 HR 600 MG TABCR PO (08:55)
[2023-09-06] MEDS: PHENYTOIN SODIUM 100 MG EXTENDED RELEASE CAP PO (08:55)
[2023-09-06] MEDS: FUROSEMIDE 40 MG TABLET PO (08:59)
[2023-09-06 10:24] LABS: Iron 88 ug/dL (37-170)
[2023-09-06 10:33] LABS: Percent Iron Saturation 58 % (20-50)
[2023-09-06 10:38] LABS: Folic Acid > 20.0 ng/mL (2.76->20); Vitamin B12 > 1000.0 pg/mL (239-931)
[2023-09-06 12:00] VITALS: PULSE 65
[2023-09-06 13:00] VITALS: BP 110/50
--- NOTE | 2023-09-06 18:14 | PM.DS ---
DS: Admitting Diagnosis Discharge Date 09/06/23 Admitting Diagnosis Acute kidney failure chronic atrial fibrillation hypertension seizures congestive heart failure severe malnutrition DS: Discharge Diagnosis Discharge Diagnosis (1) Acute kidney injury superimposed on CKD: Code(s): N17.9 - Acute kidney failure, unspecified; N18.9 - Chronic kidney disease, unspecified Status: Acute (2) Chronic atrial fibrillation: Code(s): I48.20 - Chronic atrial fibrillation, unspecified Status: Chronic (3) Benign essential hypertension: Code(s): I10 - Essential (primary) hypertension Status: Acute (4) Seizures: Code(s): R56.9 - Unspecified convulsions Status: Acute (5) Congestive heart failure: Qualifiers: Heart failure type: diastolic Heart failure chronicity: acute on chronic Qualified Code(s): I50.33 - Acute on chronic diastolic (congestive) heart failure Code(s): I50.9 - Heart failure, unspecified Status: Acute (6) Severe malnutrition: Code(s): E43 - Unspecified severe protein-calorie malnutrition Status: Acute DS: Summary Hospital Course Reason for hospitalization: Acute kidney failure chronic atrial fibrillation hypertension seizures congestive heart failure severe malnutrition Hospital Course: 78-year-old female with with history of stroke and left-sided weakness, rheumatic fever status post mitral valve annuloplasty, atrial fibrillation status post permanent pacemaker insertion on chronic anticoagulation, aortic valve stenosis, hypertension, hyperlipidemia, and chronic kidney disease who presented to the hospital for weakness from [facility]. Patient found to have an LISA on CKD with elevated BUN/Cr. She had a renal US done which showed no hydronephrosis or stones. The patient was started on NS and her I/O remained normal. Due to worsening edema and pulmonary edema seen on CXR the NS was discontinued. Patient received IV lasix and then was started back on home PO lasix. Kidney function continued to improve. Patient continued to have HR in 50's and there was concern about her pacemaker. An interrogation was done and showed normal function and it is set at 50. Spoke with cardiology Dr. Duenas today in regards to patients sotalol. He states that since patient is paced okay to continue sotalol at this time despite bradycardia. Patient was having hypotension on home blood pressure medications. Losartan was held and BP remained in WNL. Will continue to hold on discharge and patient will follow up with PCP in regards to discontinuing vs restarting. On admission patient INR was supratherapeutic on warfarin. This medication was held and resumed at discharge. Patient will obtain a PT/INR outpatient to further assess a need to change warfarin dosing. Patient discharged in a stable condition back to [facility] for further skilled PT/OT. She will follow up with her PCP in 1 week. Obtain a PT/INR level on 09/09/23 to ensure therapeutic level of warfarin. Status at Discharge Functional status at discharge: wheelchair bound Time Spent with Patient Time attestation: Total time spent providing and/or coordinating discharge services: Time spent: Greater than 30 minutes Exam Narrative: AF HR 65 RR 20 SpO2 100 BP 110/50 General: frail elderly female in no acute respiratory distress who is nontoxic appearing, lying semi recumbent in bed. HEENT: Normocephalic. Atraumatic. Pupils equal round reactive to light. Extraocular movement intact. Sclera clear and anicteric. No facial asymmetry. Chest: Lungs with diminished on auscultation bilaterally. CV: Heart was normal rate and sinus rhythm. S1-S2. No murmurs, gallops, or rubs. Abd: Abdomen was soft. Nontender. Nondistended. Positive bowel sounds. No organomegaly or masses. Ext: No clubbing, cyanosis, edema. 2+ DP pulses bilaterally. Neuro: Patient is alert and oriented x4. Speech is clear. Psych: Normal m
== END 2023-09-06 14:15 | DRG 682 ==
LOC: ANHED 22:09 → ANH3MEDSUR 23:26
PROVIDERS: Nurse Practitioner; Nurse Practitioner Acute Care; Student in an Organized Health Care Education/Training Program; Admitting Provider Internal Medicine; Emergency Provider Emergency Medicine; PCP Internal Medicine; Visit Provider General Practice
DX: N17.9 Acute kidney failure, unspecified (principal); E43 Unspecified severe protein-calorie malnutrition; I50.33 Acute on chronic diastolic (congestive) heart failure; E87.1 Hypo-osmolality and hyponatremia; I48.20 Chronic atrial fibrillation, unspecified; I69.354 Hemiplegia and hemiparesis following cerebral infarction affecting left non-dominant side; Z68.1 Body mass index [BMI] 19.9 or less, adult; I08.0 Rheumatic disorders of both mitral and aortic valves; I12.9 Hypertensive chronic kidney disease with stage 1 through stage 4 chronic kidney disease, or unspecified chronic kidney disease; N18.30 Chronic kidney disease, stage 3 unspecified; E78.5 Hyperlipidemia, unspecified; E53.8 Deficiency of other specified B group vitamins; E55.9 Vitamin D deficiency, unspecified; M81.0 Age-related osteoporosis without current pathological fracture; R79.1 Abnormal coagulation profile; R56.9 Unspecified convulsions; Z79.01 Long term (current) use of anticoagulants; Z11.52 Encounter for screening for COVID-19; Z95.0 Presence of cardiac pacemaker
CPT/HCPCS: 36415; 71045; 76775; 80048; 80053; 81003; 82607; 82746; 83540; 83550; 83690; 83735; 83880; 84484; 85025; 85027; 85610; 85730; 87635; 93005; 94640; 96361; 97110; 97161; 97165; 97530; 99285; A9270; G0378; J1940; J7030; J7040

== ENCOUNTER 2023-10-05 11:42 | Inpatient (IN) | payer MEDICARE, SELFPAY ==
[2023-10-05] VITALS (12 sets, daily range): BP systolic 121–175; BP diastolic 48–84; PULSE 56–69; RESP 14–24; TEMP 36.2–36.6; O2SAT 93–99
--- NOTE | ~2023-10-05 | XR_ITS ---
EXAMINATION: XR chest 1V portable DATE: 10/05/2023 13:43 INDICATION: Shortness of breath. TECHNIQUE: A single frontal view of the chest was obtained. COMPARISON: Chest single view 09/03/2023 FINDINGS: There are small pleural effusions. There is a diffuse interstitial pattern in the lungs, co nsistent with mild pulmonary edema. There is mild atelectasis at left lung base. No pneumothorax. Car diomegaly is noted. Median sternotomy wires are noted. There is a left chest pacer lead in right vent ricle. IMPRESSION: 1. Mild pulmonary edema. 2. Small pleural effusions. 3. Cardiomegaly. Reviewed, dictated and finalized at location A.
[2023-10-05 14:08] LABS: Basophils Absolute Auto 0.1 K/mm3 (0.0-0.1); Basophils Percent Auto 0.6 % (0.2-1.2); Eosinophils Absolute Auto 0.5 K/mm3 (0-0.3); Eosinophils Percent Auto 5.5 % (0-4.4); Hematocrit 32.8 % (37.0-47.0); Hemoglobin 10.1 g/dL (12.0-15.0); Immature Granulocyte Absolute 0.03 K/mm3 (0.00-0.031); Immature Granulocyte Percent A 0.4 % (0-0.5); Lymphocytes Absolute Auto 0.86 K/mm3 (0.9-3.2); Lymphocytes Percent Auto 10.3 % (18.3-44.2); Mean Corpuscular HGB Conc 30.8 g/dl (32-36); Mean Corpuscular Volume 81.2 fl (80-100); Mean Platelet Volume 9.1 fl (7.4-10.4); Neutrophils Percent Auto 71.2 % (45.5-73.1); Platelet Count Result 370 k/mm3 (150-375); Red Blood Count 4.04 M/mm3 (4.2-5.4); Red Cell Distribution Width 20.6 % (11.5-14.5); White Blood Count 8.4 K/mm3 (4.5-10.0)
[2023-10-05 14:14] LABS: INR 2.9; Prothrombin Time 32.7 Seconds (11.1-14.7)
[2023-10-05 14:16] LABS: Lactic Acid Reflex 1.3 mmol/L (0.7-2.0)
[2023-10-05 14:44] LABS: NT Pro B Type Natriuretic Pept 13500 pg/mL (19.9-100)
[2023-10-05 14:52] LABS: Appearance Urine Clear (Clear); Bacteria Urine None Seen /hpf; Bilirubin Urine Negative (Negative); Blood Urine Negative (Negative); Color Urine Yellow (Yellow); Glucose Urine UA Negative (Negative); Ketones Urine Negative (Negative); Leukocyte Esterase Ur 2+ LEU/UL (Negative); Nitrate Urine Negative (Negative); Protein Urine 1+ mg/dL (Negative); RBC Urine 0-2 /hpf (0-2); Specific Grav Ur 1.017 (1.001-1.035); Squamous Epithelial Cell Urine None Seen /hpf (Few); Urobilinogen Urine 0.2 mg/dL (<2.0); WBC Urine 21-50 /hpf (0-3); pH Urine 8.5 (5.0-9.0)
[2023-10-05] MEDS: FUROSEMIDE INJ 40 MG/4 ML VIAL IV PUSH ×2 (15:06→20:08)
[2023-10-05 15:13] LABS: Add Urine Microscopic? YES
--- NOTE | 2023-10-05 15:15 | PC.NURSE ---
patients last bp was 121/63. okayed giving IV Lasix order. applied female purwick for patient comfort per family request
[2023-10-05] MEDS: fentaNYL CITRATE INJ (*CRX) 100 MCG/2 ML VIAL 25 MCG IV PUSH (15:47)
--- NOTE | 2023-10-05 16:18 | ED.GENADULT ---
HPI - General Adult General Chief complaint: Extremity Problem,Nontraumatic Stated complaint: right arm pain Time Seen by Provider: 10/05/23 13:07 Source: patient and family Mode of arrival: ambulatory Limitations: no limitations History of Present Illness HPI narrative: 78-year-old with a history of CKD, AFib, CHF here with complaints of shortness of breath for last several hours. Patient is currently a resident of [place] [address]. Patient states that she has been screaming from 4:00 a.m. this morning stating that she is unable to breathe and she is extremely weak to get up. patient's daughter was at bedside said that few weeks ago she had been diagnosed with pneumonia. She chief presently denies any chest pain or fever or chills. She states that her right shoulder is being painful for the last several months. No recent trauma. Related Data Home Medications Medication Instructions Recorded Confirmed cholecalciferol (vitamin D3) 125 125 mcg PO DAILY 02/13/23 10/01/23 mcg (5,000 unit) capsule mecobalamin (vitamin B12) 1,000 1,000 mcg sublingual DAILY 02/13/23 10/01/23 mcg disintegrating tablet,sublingual ferrous sulfate 325 mg (65 mg 325 mg PO BID 03/06/23 10/01/23 iron) tablet furosemide 40 mg tablet (Lasix) 40 mg PO DAILY 09/01/23 10/01/23 potassium chloride 20 mEq 20 meq PO DAILY 09/01/23 10/01/23 tablet,extended release Allergies Allergy/AdvReac Type Severity Reaction Status Date / Time No Known Allergies Allergy Verified 10/05/23 13:25 Review of Systems Review of Systems: All systems reviewed & are unremarkable except as noted in HPI and below Constitutional: Constitutional: Reports no additional constitutional complaints Eyes: Eyes: Reports no additional eye complaints Cardiovascular: Cardiovascular: Reports no additional cardiovascular complaints Respiratory: Respiratory: Reports as per HPI Gastrointestinal: Gastrointestinal: Reports no additional gastrointestinal complaints Musculoskeletal: Musculoskeletal: Reports as per HPI Neurologic: Reports system reviewed and no additional complaints, except as documented PMFSH Past Medical History Medical History Anemia Aortic stenosis Benign essential hypertension Cerebrovascular accident (1991) Attributed to thrombus formation on mitral valve; residual left-sided weakness. Chronic anticoagulation Chronic kidney disease, stage 3 Hearing loss Hyperlipidemia Osteoporosis Paroxysmal atrial fibrillation Pre-diabetes Rash Seizures Seizure following stroke in 1991 though non since that time, remains on Dilantin. Thalassemia Vitamin B12 deficiency Vitamin D deficiency Surgical History Surgical History History of permanent cardiac pacemaker placement Status post mitral valve annuloplasty Family History Family History Mother Cerebrovascular accident Father Hypertension Social History Social History Social History: Surrogate medical decision maker: Tatiana Way, daughter. 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 Spiritual care concerns: No Exam Narrative: GENERAL: Well-appearing,thin , and in no acute distress. HEAD: Normocephalic, atr
--- NOTE | 2023-10-05 16:21 | ECG_ITS ---
SEE SCANNED COPY FOR CONFIRMED REPORT MTDD
[2023-10-05 16:22] LABS: Alanine Aminotransferase 16 U/L (6-35); Albumin Level 3.8 g/dL (3.5-5.1); Alkaline Phosphatase 145 U/L (38-126); Anion Gap 5 mmol/L (4-12); Aspartate Amino Transferase 32 U/L (14-36); Bilirubin,Total 0.7 mg/dL (0.2-1.3); Blood Urea Nitrogen 40 mg/dL (7-17); Calcium 9.2 mg/dL (8.4-10.2); Carbon Dioxide 31 mmol/L (22-30); Chloride 103 mmol/L (98-107); Estimated Glomerular Filt Rate 33; Glucose 111 mg/dL (65-110); Potassium 4.3 mmol/L (3.4-5.0); Sodium 139 mmol/L (137-145)
--- NOTE | 2023-10-05 16:50 | PC.NURSE ---
Meal tray ordered for pt
--- NOTE | 2023-10-05 17:29 | ADMGEN ---
This patient, Kait Skaggs, was admitted to Medical Room 345-01. Patient/family oriented to hospital policies and general routines including ID bracelet, bed and alarms, visiting hours, pain management, procedures, bathroom and other care routines, personal items, smoking policy, room service/diet, and visiting hours. Information on how to activate the Rapid Response Team has been discussed. Patient/Family are encouraged to report perceived risks to care and to ask questions if they do not understand what they are told or what they should do.
[2023-10-05 19:58] LABS: Troponin I 0.021 ng/mL (0.000-0.034)
[2023-10-05 22:40] LABS: Troponin I 0.021 ng/mL (0.000-0.034)
[2023-10-06] VITALS (13 sets, daily range): BP systolic 106–127; BP diastolic 48–90; PULSE 65–77; RESP 14–20; TEMP 36.1–36.4; O2SAT 95–100
--- NOTE | 2023-10-06 05:05 | PM.IMHP ---
H&P: HPI History of Present Illness Date/Time: 10/06/23 05:05 Chief Complaint: 1. Right arm pain 2. Shortness of breath Narrative: Kait Skaggs is an 78-year-old with a history of CKD, AFib, CHF Currently a resident of [facility]. She describes experiencing shortness of breath over the last 1-2 days; this is aggravated by exertion, mildy alleviated by rest; associated with poor execution of her ADLs, anorexia and anxiety. ? Patient daughter was at bedside said that few weeks ago she had been diagnosed with pneumonia.? She presently denies any chest pain or fever or chills.? She states that her right shoulder is being painful for the last several months.? No recent trauma. She does not smoke/chew tobacco, drink alcohol or consume recreational/illicit drugs; her mother suffered from a CVA and father, hypertension. Work-up findings: EKG Interpretation: bradycardia (58), sinus rhythm, no ectopy, non-specific ST changes, NL axis and no acute changes CXR: Chest X-Ray? 10/05/23 :1. Mild pulmonary edema. 2. Small pleural effusions. 3. Cardiomegaly. WBC 8.4 Hb 10 PLT 370 Na 139 K 4.3 Cl 103 HCO3 31 BUN 40 Cr 1.50 AST 32 ALT 16 ALP 145 Troponin 0.021 >. 0.021 BNP 46229 Kait Skaggs will be admitted, evaluated and managed for CHF exacerbation Review of Systems Constitutional: Constitutional: Denies difficulty sleeping, Reports fatigue, Reports lethargy and Denies night sweats ENT: Denies Normal hearing present, Denies dysphagia, Denies epistaxis, Denies nasal congestion and Denies nasal discharge Respiratory: Respiratory: Denies chest congestion, Denies hemoptysis, Reports dyspnea and Reports dyspnea on exertion Gastrointestinal: Gastrointestinal: Denies diarrhea, Denies nausea and Denies vomiting Genitourinary: Genitourinary: Denies dysuria and Denies urinary urgency Musculoskeletal: Musculoskeletal: Denies joint swelling Integumentary/Breasts: Skin/Breast: Denies erythema Neurologic: Denies abnormal gait, Denies confusion, Denies vertigo and Denies headache(s) Psychiatric: Psychiatric: Reports anxiety and Denies confusion [facility] Past Medical History Medical History Anemia Aortic stenosis Benign essential hypertension Cerebrovascular accident (1991) Attributed to thrombus formation on mitral valve; residual left-sided weakness. Chronic anticoagulation Chronic kidney disease, stage 3 Hearing loss Hyperlipidemia Osteoporosis Paroxysmal atrial fibrillation Pre-diabetes Rash Seizures Seizure following stroke in 1991 though non since that time, remains on Dilantin. Thalassemia Vitamin B12 deficiency Vitamin D deficiency Surgical History Surgical History History of permanent cardiac pacemaker placement Status post mitral valve annuloplasty Family History Family History Mother Cerebrovascular accident Father Hypertension Social History Social History Social History: Surrogate medical decision maker: Tatiana Way, daughter. 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 Spiritual care concerns: No Meds Home Medications and Allergies Home Medications Medication Instructions Recorded Confirmed Type
[2023-10-06 06:29] LABS: Anion Gap 5 mmol/L (4-12); Blood Urea Nitrogen 38 mg/dL (7-17); Calcium 8.9 mg/dL (8.4-10.2); Carbon Dioxide 33 mmol/L (22-30); Chloride 101 mmol/L (98-107); Estimated Glomerular Filt Rate 36; Glucose 112 mg/dL (65-110); Potassium 3.4 mmol/L (3.4-5.0); Sodium 139 mmol/L (137-145)
[2023-10-06] MEDS: FUROSEMIDE INJ 40 MG/4 ML VIAL IV PUSH ×2 (06:50→20:18)
[2023-10-06] MEDS: FERROUS SULFATE 325 MG TABLET DR PO ×2 (09:48→16:00)
[2023-10-06] MEDS: CHOLECALCIFEROL 1,000 UNITS TABLET 5000 UNITS PO (09:48)
[2023-10-06] MEDS: CALCIUM CARBONATE (OSCAL) 500 MG TABLET PO (09:48)
[2023-10-06] MEDS: SOTALOL HCL 80 MG TABLET PO ×2 (09:48→20:18)
[2023-10-06] MEDS: FOLIC ACID 1 MG TABLET PO (09:49)
[2023-10-06] MEDS: CYANOCOBALAMIN 1,000 MCG TABLET 1000 MCG PO (09:49)
[2023-10-06] MEDS: BACLOFEN 5 MG TABLET PO (09:49)
--- NOTE | 2023-10-06 09:50 | PM.IMPN ---
Progress Note: A&P Assessment and Plan (1) CHF (congestive heart failure): Qualifiers: Heart failure chronicity: acute on chronic Heart failure type: systolic Qualified Code(s): I50.23 - Acute on chronic systolic (congestive) heart failure Code(s): I50.9 - Heart failure, unspecified Status: Acute Assessment and Plan: Here with dyspnea BNP 13,500 Trop x 2 negative XR of chest shows mild pulmonary edema, bilateral pleural effusions, and cardiomegaly Lasix 40 mg IVP BID UOP 1800 ml in the last 24 hours Strict I&O Fluid restriction 1800 mL daily Low-sodium diet Daily weights. 61.18 kg yesterday. Weight from 09/01/23 was 41.6 kg Recent ECHO from 06/2023 reviewed. Shows LV hypertrophy with preserved systolic function, severe by atrial dilatation, sclerotic aortic valve with mild stenosis, thickened mitral valve with mitral regurg in stenosis. Try S been required which consistent with pulmonary hypertension. EF 65-70%. (2) Acute kidney injury superimposed on CKD: Code(s): N17.9 - Acute kidney failure, unspecified; N18.9 - Chronic kidney disease, unspecified Status: Acute Assessment and Plan: Creatinine 1.5 on admission Baseline creatinine 1.1-1.4, GFR in the 40s to 30s Avoid nephrotoxic agents (3) Paroxysmal atrial fibrillation: Code(s): I48.0 - Paroxysmal atrial fibrillation Status: Acute Assessment and Plan: Pacemaker present Recent pacemaker interrogation in August of this year with no acute findings. Rate is set at 50 beats per minute. On sotalol 80 mg b.i.d. On anticoagulation with warfarin INR 2.9 Can d/c tele as she has pacemaker, function well. House needs more boxes. (4) Shoulder arthralgia: Qualifiers: Laterality: right Qualified Code(s): M25.511 - Pain in right shoulder Code(s): M25.519 - Pain in unspecified shoulder Status: Acute Assessment and Plan: Chronic right shoulder pain. Impaired movement. Cannot raise her arm over her head. Per patient, her shoulder was XR'd and negative for fracture PT/OT Tylenol, baclofen prn Plan Feeding: Heart healthy diet, fluid restriction 1800 ml Analgesia:Tylenol, Baclofen Thromboembolic prophylaxis: Warfarin Lines: PIV Disposition: return to snf versus home with daughter. Patient states she was going to discharge home at the end of the month. Subjective Date/time seen: 10/06/23 09:50 Interval history: Currently a resident of [facility]. She describes experiencing shortness of breath over the last 1-2 days; this is aggravated by exertion, mildy alleviated by rest; associated with poor execution of her ADLs, anorexia and anxiety. 10/05: Patient is seen in bed without oxygen and does not appear in acute distress. She still is reporting shortness of breath with activity. It is difficult to get a good ROS from her as she is fixated on her right shoulder and its limited movement. She says this is a chronic pain problem and she has had an XR by her PCP and it was negative for fracture. Given her limitation with raising her arm she likely has some ligament damage but she is unable to undergo MRI with her pacemaker and truly would likely not be a candidate for surgery given her cardiac history. Will continue today with IV lasix BID. She still has +3-4 BLE edema. Review of Systems Review of Systems: All systems reviewed & are unremarkable except as noted in HPI and below Exam Narrative: General: well appearing, appears stated age. HEENT: normocephalic, atraumatic. Mucous membranes moist. EOMI, PERRLA, bilateral sclera anicteric, no conjunctival injection. Neck supple without JVD, lymphadenopathy, or bruit. Respiratory: crackles to bilateral bases on auscultation bilaterally. No rales/rhonic/wheezes. Cardiovascular: Regular rate and rhythm, normal S1-S2 upon auscultation. No murmurs, rubs, or clicks. PMI is displaced, capillary refill less nubia
[2023-10-06] MEDS: PHENYTOIN SODIUM 100 MG EXTENDED RELEASE CAP PO ×2 (09:51→20:19)
[2023-10-06] MEDS: ACETAMINOPHEN 325 MG TABLET 650 MG PO (10:33)
--- NOTE | 2023-10-06 12:07 | PC.NURSE ---
Patient was given a dose of lasix 40 mg at 0650 ordered by admitting doctor. The dose schedule for 0900 was held by verbal order from KAUSHAL [place].
[2023-10-06] MEDS: WARFARIN (*PBKC) 2 MG TABLET PO (16:01)
[2023-10-07] VITALS (8 sets, daily range): BP systolic 110–120; BP diastolic 48–56; PULSE 64–80; RESP 16–18; TEMP 36.2–37; O2SAT 91–97
[2023-10-07 05:45] LABS: Basophils Percent Auto 0.4 % (0.2-1.2); Eosinophils Absolute Auto 0.7 K/mm3 (0-0.3); Eosinophils Percent Auto 7.3 % (0-4.4); Hematocrit 32.8 % (37.0-47.0); Hemoglobin 10.2 g/dL (12.0-15.0); Immature Granulocyte Absolute 0.04 K/mm3 (0.00-0.031); Immature Granulocyte Percent A 0.4 % (0-0.5); Lymphocytes Absolute Auto 0.89 K/mm3 (0.9-3.2); Lymphocytes Percent Auto 9.4 % (18.3-44.2); Mean Corpuscular HGB Conc 31.1 g/dl (32-36); Mean Corpuscular Hemoglobin 25.1 pg (26-34); Mean Corpuscular Volume 80.8 fl (80-100); Mean Platelet Volume 9.3 fl (7.4-10.4); Monocytes Absolute Auto 1.1 K/mm3 (0.1-0.6); Neutrophils Absolute Auto 6.8 K/mm3 (1.3-6.7); Neutrophils Percent Auto 71.5 % (45.5-73.1); Platelet Count Result 383 k/mm3 (150-375); Red Blood Count 4.06 M/mm3 (4.2-5.4); Red Cell Distribution Width 19.6 % (11.5-14.5); White Blood Count 9.5 K/mm3 (4.5-10.0)
[2023-10-07 05:50] LABS: Alanine Aminotransferase 18 U/L (6-35); Albumin Level 3.7 g/dL (3.5-5.1); Alkaline Phosphatase 140 U/L (38-126); Anion Gap 5 mmol/L (4-12); Aspartate Amino Transferase 30 U/L (14-36); Bilirubin,Total 0.6 mg/dL (0.2-1.3); Blood Urea Nitrogen 38 mg/dL (7-17); Calcium 9.2 mg/dL (8.4-10.2); Carbon Dioxide 36 mmol/L (22-30); Chloride 97 mmol/L (98-107); Estimated Glomerular Filt Rate 33; Glucose 115 mg/dL (65-110); Magnesium 1.9 mg/dL (1.6-2.3); Potassium 3.4 mmol/L (3.4-5.0); Sodium 138 mmol/L (137-145)
--- NOTE | 2023-10-07 07:29 | PM.IMPN ---
Progress Note: A&P Assessment and Plan (1) CHF (congestive heart failure): Qualifiers: Heart failure chronicity: acute on chronic Heart failure type: systolic Qualified Code(s): I50.23 - Acute on chronic systolic (congestive) heart failure Code(s): I50.9 - Heart failure, unspecified Status: Acute Assessment and Plan: Here with dyspnea BNP 13,500 Trop x 2 negative XR of chest shows mild pulmonary edema, bilateral pleural effusions, and cardiomegaly Lasix 40 mg IVP BID UOP 1800 ml in the last 24 hours Strict I&O Fluid restriction 1800 mL daily Low-sodium diet Daily weights. 61.18 kg yesterday. Weight from 09/01/23 was 41.6 kg Recent ECHO from 06/2023 reviewed. Shows LV hypertrophy with preserved systolic function, severe by atrial dilatation, sclerotic aortic valve with mild stenosis, thickened mitral valve with mitral regurg in stenosis. Try S been required which consistent with pulmonary hypertension. EF 65-70%. 10/06: Cardiology recommends continued IV diuresis. (2) Enterococcus UTI: Code(s): N39.0 - Urinary tract infection, site not specified; B95.2 - Enterococcus as the cause of diseases classified elsewhere Status: Acute Assessment and Plan: 10/06: Urine culture positive for Enterococcus. Ordered blood cultures and begin ampicillin. Raising concern for shoulder pain and valve thickening on echocardiogram for possible endocarditis and bacteremia. Will consult Cardiology to consider MIKA? Will dose for presumed bacteremia pending cultures. Urine culture later resulted resistant to ampicillin. Antibiotics changed to vancomycin. (3) Acute kidney injury superimposed on CKD: Code(s): N17.9 - Acute kidney failure, unspecified; N18.9 - Chronic kidney disease, unspecified Status: Acute Assessment and Plan: Creatinine 1.5 on admission Baseline creatinine 1.1-1.4, GFR in the 40s to 30s Avoid nephrotoxic agents (4) Paroxysmal atrial fibrillation: Code(s): I48.0 - Paroxysmal atrial fibrillation Status: Acute Assessment and Plan: Pacemaker present Recent pacemaker interrogation in August of this year with no acute findings. Rate is set at 50 beats per minute. On sotalol 80 mg b.i.d. On anticoagulation with warfarin INR 2.9 Can d/c tele as she has pacemaker, function well. House needs more boxes. (5) Shoulder arthralgia: Qualifiers: Laterality: right Qualified Code(s): M25.511 - Pain in right shoulder Code(s): M25.519 - Pain in unspecified shoulder Status: Acute Assessment and Plan: Chronic right shoulder pain. Impaired movement. Cannot raise her arm over her head. Per patient, her shoulder was XR'd and negative for fracture PT/OT Tylenol, baclofen prn (6) Chronic anticoagulation: Code(s): Z79.01 - general operations agent (current) use of anticoagulants Status: Acute Assessment and Plan: 10/06: On warfarin INR 2.6 Plan Feeding: Heart healthy diet, fluid restriction 1800 ml Analgesia:Tylenol, Baclofen Thromboembolic prophylaxis: Warfarin Lines: PIV Disposition: return to snf versus home with daughter. Patient states she was going to discharge home at the end of the month. Time Spent With Patient Time with patient: 25 - 35 minutes Subjective Date/time seen: 10/07/23 07:29 Interval history: 10/06: Urine culture with enterococcus. Draw blood cultures. Shoulder pain and valve thickening on echocardiogram sound potentially concerning for endocarditis due to enterococcus. Will start ampicillin and consult Cardiology for possible MIKA. After patient received 1st dose of ampicillin, susceptibilities return on the urine with resistance to ampicillin. This was canceled and vancomycin initiated. Blood cultures were obtained before antibiotics and will be monitored. Cardiology saw patient does not believe any further valvular workup is necessary at this time. Matthew
[2023-10-07] MEDS: CHOLECALCIFEROL 1,000 UNITS TABLET 5000 UNITS PO (08:06)
[2023-10-07] MEDS: PHENYTOIN SODIUM 100 MG EXTENDED RELEASE CAP PO ×2 (08:06→20:27)
[2023-10-07] MEDS: FERROUS SULFATE 325 MG TABLET DR PO ×2 (08:06→16:13)
[2023-10-07] MEDS: FOLIC ACID 1 MG TABLET PO (08:07)
[2023-10-07] MEDS: SOTALOL HCL 80 MG TABLET PO ×2 (08:07→20:27)
[2023-10-07] MEDS: CYANOCOBALAMIN 1,000 MCG TABLET 1000 MCG PO (08:07)
[2023-10-07] MEDS: FUROSEMIDE INJ 40 MG/4 ML VIAL IV PUSH ×2 (08:07→20:27)
[2023-10-07] MEDS: BACLOFEN 5 MG TABLET PO (08:07)
[2023-10-07] MEDS: CALCIUM CARBONATE (OSCAL) 500 MG TABLET PO (08:07)
[2023-10-07] MEDS: AMPICILLIN 2 GM/NS 100 ML 2 GM/100 ML BAG IVPB (08:38)
[2023-10-07 08:40] LABS: INR 2.6; Prothrombin Time 30.1 Seconds (11.1-14.7)
--- NOTE | 2023-10-07 11:03 | PM.CNCAR ---
Assessment and Plan Assessment and plan (1) CHF (congestive heart failure): Qualifiers: Heart failure chronicity: acute on chronic Heart failure type: systolic Qualified Code(s): I50.23 - Acute on chronic systolic (congestive) heart failure Code(s): I50.9 - Heart failure, unspecified Status: Acute (2) Paroxysmal atrial fibrillation: Code(s): I48.0 - Paroxysmal atrial fibrillation Status: Acute (3) Aortic stenosis: Qualifiers: Cardiac valve disease etiology: etiology unspecified Qualified Code(s): I35.0 - Nonrheumatic aortic (valve) stenosis Code(s): I35.0 - Nonrheumatic aortic (valve) stenosis Status: Acute (4) History of mitral valve repair: Code(s): Z98.890 - Other specified postprocedural states Status: Acute Plan This is an 78-year-old woman who has valvular heart disease and atrial fibrillation. She currently has moderate aortic stenosis and [id number] mitral stenosis. With respect to her atrial fib she is successfully maintaining sinus rhythm with sotalol and has not had any AF recurrences in a long time. She enters the hospital with some PND and really no other findings of decompensated heart failure as far as right-sided findings. He is benefiting from intravenous furosemide and feels notably better than when she came in yesterday. At this point I believe we should keep her on intravenous furosemide at least until tomorrow and consider discharging her tomorrow on a higher dosage then 40 mg daily. Her valvular heart disease has been worked up extensively here and at [facility] and she does not require any further workup of that at this time. Amrik Anand MD [facility] History of Present Illness History of Present Illness Consult date/time: 10/07/23 11:03 Reason For Visit: CHF Narrative: This is a very pleasant 78-year-old woman that I see in the office for a number of years with valvular heart disease and a history of atrial fibrillation as well as a pacemaker. She is being seen at the request of the hospitalist because of some shortness of breath for which she was brought here from her rehab facility yesterday morning. 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 She says she was calling out loudly for help for at least a couple of hours before someone came to check on her and found her to be in respiratory distress. She was given a face mask oxygen supplement and she said she immediately felt better she was brought to the emergency room for evaluation. Her evaluation in the emergency room of course included a chest x-ray which appears to show modest pulmonary congestion. She was not reporting any significant chest pain or any other symptomatology. She says she might have had some increase in lower extremity edema but it that was not a prominent part of her chief complaint. She has been receiving intravenous furosemide twice daily since coming here and she feels better today. This patient has and uncommon history of valvular heart disease and atrial fibrillation. She has history of mitral valve stenosis that was symptomatic and in 1991 she underwent a mitral valve open commissioner [place]. Around that time she had a CVA because with a history of paroxysmal atrial fibrillation. She had been started on antiarrhythmic therapy in the form of sotalol by her previous inspector printed circuit boards as she also had a history of problematic Mack arrhythmias and had a pacemaker device implanted. She was in sinus rhythm on sotalol therapy but despite this for reasons that are not clear to me ventricular pacemaker was implanted. She became a patient of [facility] a few years ago when her previous physician had retired and she came to this area for ongoing care and follow-up. Despite the fact that she had a ventricular pacemaker we did not elect to upgrade the device
[2023-10-07] MEDS: VANCOMYCIN 500 MG/NS 100 ML 500 MG/100 ML BAG 100 MG IVPB (14:23)
[2023-10-07] MEDS: WARFARIN (*PBKC) 1.5 MG TABLET PO (16:13)
[2023-10-08 06:00] VITALS: BP 118/49; PULSE 58; RESP 20; TEMP 36.1; O2SAT 98
--- NOTE | 2023-10-08 06:00 | PC.NURSE ---
Pt stating this morning that she had a miserable night, that she was not checked on, and that she laid in bed screaming for help from 2am and on. Pt only oriented to self at time of waking up and required reorientation to where she was. Pt states she is scared thinking that we put her in a cubbie hole and we are experimenting on her. Pt was rounded on by both nurse and tech, observed to be sleeping comfortably with call light on top of abdomen throughout the night. Pt room is next to nurses station. Pt reoriented to situation and surroundings and educated lactation consultant light use.
[2023-10-08 06:04] LABS: Basophils Absolute Auto 0.1 K/mm3 (0.0-0.1); Basophils Percent Auto 0.5 % (0.2-1.2); Eosinophils Absolute Auto 0.8 K/mm3 (0-0.3); Hematocrit 30.4 % (37.0-47.0); Hemoglobin 9.4 g/dL (12.0-15.0); Immature Granulocyte Absolute 0.05 K/mm3 (0.00-0.031); Immature Granulocyte Percent A 0.5 % (0-0.5); Lymphocytes Absolute Auto 1.07 K/mm3 (0.9-3.2); Lymphocytes Percent Auto 11.5 % (18.3-44.2); Mean Corpuscular HGB Conc 30.9 g/dl (32-36); Mean Corpuscular Hemoglobin 24.9 pg (26-34); Mean Corpuscular Volume 80.6 fl (80-100); Mean Platelet Volume 9.5 fl (7.4-10.4); Monocytes Absolute Auto 1.1 K/mm3 (0.1-0.6); Monocytes Percent Auto 11.9 % (2.6-8.5); Neutrophils Absolute Auto 6.3 K/mm3 (1.3-6.7); Neutrophils Percent Auto 67.6 % (45.5-73.1); Platelet Count Result 386 k/mm3 (150-375); Red Blood Count 3.77 M/mm3 (4.2-5.4); Red Cell Distribution Width 19.1 % (11.5-14.5); White Blood Count 9.3 K/mm3 (4.5-10.0)
[2023-10-08 06:07] LABS: Alanine Aminotransferase 17 U/L (6-35); Albumin Level 3.3 g/dL (3.5-5.1); Alkaline Phosphatase 133 U/L (38-126); Anion Gap 4 mmol/L (4-12); Aspartate Amino Transferase 28 U/L (14-36); Bilirubin,Total 0.5 mg/dL (0.2-1.3); Blood Urea Nitrogen 44 mg/dL (7-17); Calcium 8.7 mg/dL (8.4-10.2); Carbon Dioxide 35 mmol/L (22-30); Chloride 98 mmol/L (98-107); Estimated Glomerular Filt Rate 33; Glucose 103 mg/dL (65-110); INR 2.5; Magnesium 1.9 mg/dL (1.6-2.3); Potassium 3.2 mmol/L (3.4-5.0); Sodium 137 mmol/L (137-145)
[2023-10-08] MEDS: BACLOFEN 5 MG TABLET PO (06:07)
[2023-10-08 08:00] VITALS: PULSE 49; RESP 17; O2SAT 98
[2023-10-08] MEDS: CALCIUM CARBONATE (OSCAL) 500 MG TABLET PO (08:34)
[2023-10-08] MEDS: CHOLECALCIFEROL 1,000 UNITS TABLET 5000 UNITS PO (08:34)
[2023-10-08] MEDS: PHENYTOIN SODIUM 100 MG EXTENDED RELEASE CAP PO ×2 (08:34→21:03)
[2023-10-08] MEDS: FOLIC ACID 1 MG TABLET PO (08:35)
[2023-10-08] MEDS: FUROSEMIDE INJ 40 MG/4 ML VIAL IV PUSH (08:35)
[2023-10-08] MEDS: CYANOCOBALAMIN 1,000 MCG TABLET 1000 MCG PO (08:35)
[2023-10-08] MEDS: FERROUS SULFATE 325 MG TABLET DR PO ×2 (08:35→17:14)
[2023-10-08] MEDS: POTASSIUM CHLORIDE 20 MEQ PACKET (FOR LIQUID) 40 MEQ PO (08:35)
[2023-10-08 08:36] VITALS: PULSE 49
--- NOTE | 2023-10-08 11:53 | PM.IMPN ---
Progress Note: A&P Assessment and Plan (1) CHF (congestive heart failure): Qualifiers: Heart failure chronicity: acute on chronic Heart failure type: systolic Qualified Code(s): I50.23 - Acute on chronic systolic (congestive) heart failure Code(s): I50.9 - Heart failure, unspecified Status: Acute Assessment and Plan: Here with dyspnea BNP 13,500 Trop x 2 negative XR of chest shows mild pulmonary edema, bilateral pleural effusions, and cardiomegaly Lasix 40 mg IVP BID UOP 1800 ml in the last 24 hours Strict I&O Fluid restriction 1800 mL daily Low-sodium diet Daily weights. 61.18 kg yesterday. Weight from 09/01/23 was 41.6 kg Recent ECHO from 06/2023 reviewed. Shows LV hypertrophy with preserved systolic function, severe by atrial dilatation, sclerotic aortic valve with mild stenosis, thickened mitral valve with mitral regurg in stenosis. Try S been required which consistent with pulmonary hypertension. EF 65-70%. 10/06: Cardiology recommends continued IV diuresis. 10/07: Cardiology signed off, OK to transition to oral diuresis (2) Enterococcus UTI: Code(s): N39.0 - Urinary tract infection, site not specified; B95.2 - Enterococcus as the cause of diseases classified elsewhere Status: Acute Assessment and Plan: 10/06: Urine culture positive for Enterococcus. Ordered blood cultures and begin ampicillin. Raising concern for shoulder pain and valve thickening on echocardiogram for possible endocarditis and bacteremia. Will consult Cardiology to consider MIKA? Will dose for presumed bacteremia pending cultures. Urine culture later resulted resistant to ampicillin. Antibiotics changed to vancomycin. 10/07: Negative blood cultures to date. Thickening mitral valve on echo is due to prior repair per Cardiology consult. (3) Acute kidney injury superimposed on CKD: Code(s): N17.9 - Acute kidney failure, unspecified; N18.9 - Chronic kidney disease, unspecified Status: Acute Assessment and Plan: Creatinine 1.5 on admission Baseline creatinine 1.1-1.4, GFR in the 40s to 30s Avoid nephrotoxic agents (4) Paroxysmal atrial fibrillation: Code(s): I48.0 - Paroxysmal atrial fibrillation Status: Acute Assessment and Plan: Pacemaker present Recent pacemaker interrogation in August of this year with no acute findings. Rate is set at 50 beats per minute. On sotalol 80 mg b.i.d. On anticoagulation with warfarin INR 2.9 Can d/c tele as she has pacemaker, function well. House needs more boxes. (5) Shoulder arthralgia: Qualifiers: Laterality: right Qualified Code(s): M25.511 - Pain in right shoulder Code(s): M25.519 - Pain in unspecified shoulder Status: Acute Assessment and Plan: Chronic right shoulder pain. Impaired movement. Cannot raise her arm over her head. 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 Patient states she was going to discharge home at the end of the month. Time Spent With Patient Time with patient: 25 - 35 minutes Subjective Date/time seen: 10/08/23 11:53 Interval history: 10/06: Urine culture with enterococcus. Draw blood cultures. Shoulder pain and valve thickening on echocardiogram sound potentially concerning for endocarditis due to enterococcus. Will start ampicillin and consult Cardiology for possible MIKA. After patient received 1st dose of ampicillin, susceptibilities return on the urine with resistance to ampicillin. This was canceled and
[2023-10-08 14:00] VITALS: BP 124/49; PULSE 63; RESP 16; TEMP 36.7; O2SAT 100
[2023-10-08 17:05] LABS: Vancomycin Trough 5.8 ug/mL (10.0-20.0)
[2023-10-08] MEDS: WARFARIN (*PBKC) 2 MG TABLET PO (17:13)
[2023-10-08] MEDS: FUROSEMIDE 40 MG TABLET PO (17:14)
[2023-10-08 20:00] VITALS: BP 102/52; PULSE 64; RESP 18; TEMP 36.9; O2SAT 100
[2023-10-08 22:00] VITALS: BP 99/47; PULSE 60; RESP 18; TEMP 36.9; O2SAT 98
[2023-10-08] MEDS: VANCOMYCIN 500 MG/NS 100 ML 500 MG/100 ML BAG 100 MG IVPB (23:12)
[2023-10-09 05:15] LABS: Basophils Absolute Auto 0.1 K/mm3 (0.0-0.1); Basophils Percent Auto 0.7 % (0.2-1.2); Eosinophils Absolute Auto 0.8 K/mm3 (0-0.3); Eosinophils Percent Auto 8.4 % (0-4.4); Hemoglobin 9.3 g/dL (12.0-15.0); Immature Granulocyte Absolute 0.07 K/mm3 (0.00-0.031); Immature Granulocyte Percent A 0.7 % (0-0.5); Lymphocytes Absolute Auto 0.97 K/mm3 (0.9-3.2); Mean Corpuscular Volume 80.6 fl (80-100); Mean Platelet Volume 9.3 fl (7.4-10.4); Monocytes Absolute Auto 1.2 K/mm3 (0.1-0.6); Monocytes Percent Auto 12.6 % (2.6-8.5); Neutrophils Absolute Auto 6.6 K/mm3 (1.3-6.7); Neutrophils Percent Auto 67.6 % (45.5-73.1); Platelet Count Result 401 k/mm3 (150-375); Red Blood Count 3.72 M/mm3 (4.2-5.4); Red Cell Distribution Width 18.9 % (11.5-14.5); White Blood Count 9.7 K/mm3 (4.5-10.0)
[2023-10-09 05:24] LABS: Alanine Aminotransferase 16 U/L (6-35); Albumin Level 3.4 g/dL (3.5-5.1); Alkaline Phosphatase 142 U/L (38-126); Anion Gap 3 mmol/L (4-12); Aspartate Amino Transferase 30 U/L (14-36); Bilirubin,Total 0.5 mg/dL (0.2-1.3); Blood Urea Nitrogen 47 mg/dL (7-17); Calcium 8.3 mg/dL (8.4-10.2); Carbon Dioxide 33 mmol/L (22-30); Chloride 98 mmol/L (98-107); Estimated Glomerular Filt Rate 29; Glucose 108 mg/dL (65-110); Sodium 134 mmol/L (137-145)
[2023-10-09 05:25] LABS: INR 2.9; Prothrombin Time 32.8 Seconds (11.1-14.7)
[2023-10-09 06:00] VITALS: BP 133/60; PULSE 58; RESP 18; TEMP 37.1; O2SAT 97
[2023-10-09 08:00] VITALS: PULSE 56; RESP 18; O2SAT 97
[2023-10-09] MEDS: FOLIC ACID 1 MG TABLET PO (08:30)
[2023-10-09] MEDS: CHOLECALCIFEROL 1,000 UNITS TABLET 5000 UNITS PO (08:30)
[2023-10-09] MEDS: FERROUS SULFATE 325 MG TABLET DR PO (08:30)
[2023-10-09] MEDS: CALCIUM CARBONATE (OSCAL) 500 MG TABLET PO (08:30)
[2023-10-09] MEDS: PHENYTOIN SODIUM 100 MG EXTENDED RELEASE CAP PO (08:30)
[2023-10-09] MEDS: CYANOCOBALAMIN 1,000 MCG TABLET 1000 MCG PO (08:30)
[2023-10-09 08:31] VITALS: PULSE 56
[2023-10-09] MEDS: SOTALOL HCL 80 MG TABLET PO (08:31)
[2023-10-09] MEDS: FUROSEMIDE 40 MG TABLET PO (08:32)
--- NOTE | 2023-10-09 12:14 | PM.DS ---
DS: Admitting Diagnosis Discharge Date 10/09/2023 Admitting Diagnosis CHF, shoulder arthralgia DS: Discharge Diagnosis Discharge Diagnosis (1) CHF (congestive heart failure): Qualifiers: Heart failure chronicity: acute on chronic Heart failure type: systolic Qualified Code(s): I50.23 - Acute on chronic systolic (congestive) heart failure Code(s): I50.9 - Heart failure, unspecified Status: Acute (2) Enterococcus UTI: Code(s): N39.0 - Urinary tract infection, site not specified; B95.2 - Enterococcus as the cause of diseases classified elsewhere Status: Acute (3) Acute kidney injury superimposed on CKD: Code(s): N17.9 - Acute kidney failure, unspecified; N18.9 - Chronic kidney disease, unspecified Status: Acute (4) Paroxysmal atrial fibrillation: Code(s): I48.0 - Paroxysmal atrial fibrillation Status: Acute (5) Shoulder arthralgia: Qualifiers: Laterality: right Qualified Code(s): M25.511 - Pain in right shoulder Code(s): M25.519 - Pain in unspecified shoulder Status: Acute Assessment and Plan: Right, chronic (6) Chronic anticoagulation: Code(s): Z79.01 - [facility] (current) use of anticoagulants Status: Acute DS: Summary Hospital Course Hospital Course: This is a pleasant 78-year-old female patient admitted for CHF exacerbation lower extremity swelling fluid overload. She received diuresis with improvement in swelling. Urine culture grew Enterococcus UTI that was resistant to ampicillin. Patient treated with vancomycin. She was working well with therapy. Blood cultures negative for 48 hours and will continue to be monitored. Patient was discharged on oral linezolid. Warfarin dose was adjusted slightly down to 1.5 mg daily due to linezolid tendency to rise INR. Repeat INR ordered for a couple days after the nasal and prescription is completed. Patient discharged back to SNF for continued therapy. COVID swab was negative on discharge. Status at Discharge Cognitive/behavioral status at discharge: Awake alert and mostly oriented pleasant very talkative Functional status at discharge: wheelchair bound (Left hemiplegia due to prior stroke) Overall status at discharge: patient is progressing back to baseline Time Spent with Patient Time attestation: Total time spent providing and/or coordinating discharge services: 40 minutes Time spent: Greater than 30 minutes Exam Narrative: General: Very thin, underweight, appears stated age. HEENT: normocephalic, atraumatic. Mucous membranes moist. EOMI, PERRLA, bilateral sclera anicteric, no conjunctival injection. Neck supple without JVD, lymphadenopathy, or bruit. Respiratory: slight crackles to bilateral bases on auscultation bilaterally. Cardiovascular: Regular rate and rhythm, slight murmur, no rubs, or clicks. PMI is non displaced, capillary refill less than 3 second. Abdomen: Soft, round, no pulsatile masses, nondistended and nontender. No rebound, no guarding. No CVA tenderness, no hepatosplenomegaly. Bowel sounds present to all four quadrants. No high pitch or tinkling sounds, resonant to percussion. Extremities: No cyanosis, clubbing. + 1-2 edema present. Pulses are palpable 2/1. Impaired movement to RUE. Left upper and lower hemiparesis due to prior stroke Neuro: Alert and orientated x 4. PERRLA. Skin: Warm, dry, and intact, without rash, erythema, or lesion. Lines: PIV Psych: pleasant, cooperative, normal speech, normal affect, no hallucinations, no dysarthria DS: Data Data Completed and Pending Labs on day of discharge: Labs from last 24 hours 10/09/23 10/08/23 04:59 15:45 WBC 9.7 RBC 3.72 L Hgb 9.3 L Hct 30.0 L MCV 80.6 MCH 25.0 L MCHC 31.0 L RDW 18.9 H Plt Count 401 H MPV 9.3 Immature Gran % (Auto) 0.7 H Neut % (Auto) 67.6 Lymph % (Auto) 10.0 L [place] % (Auto) 12.6 H Eos % (Auto) 8.4 H Baso % (Auto) 0.7
[2023-10-09] MEDS: LINEZOLID 600 MG TABLET PO (12:21)
[2023-10-09 13:10] LABS: SARS-CoV-2 RNA PCR Negative (Negative)
[2023-10-09 14:00] VITALS: BP 128/64; PULSE 60; RESP 18; TEMP 36.5; O2SAT 98
== END 2023-10-09 15:40 | DRG 291 ==
LOC: ANHED 16:22 → ANH3MED 17:49
PROVIDERS: Nurse Practitioner Acute Care; Admitting Provider Internal Medicine; Emergency Provider Family Medicine; PCP Internal Medicine; Visit Provider Nurse Practitioner
DX: I13.0 Hypertensive heart and chronic kidney disease with heart failure and stage 1 through stage 4 chronic kidney disease, or unspecified chronic kidney disease (principal); I50.23 Acute on chronic systolic (congestive) heart failure; N17.9 Acute kidney failure, unspecified; N39.0 Urinary tract infection, site not specified; I69.354 Hemiplegia and hemiparesis following cerebral infarction affecting left non-dominant side; G40.89 Other seizures; Z16.11 Resistance to penicillins; I69.398 Other sequelae of cerebral infarction; M25.511 Pain in right shoulder; N18.30 Chronic kidney disease, stage 3 unspecified; B95.2 Enterococcus as the cause of diseases classified elsewhere; I48.0 Paroxysmal atrial fibrillation; D64.9 Anemia, unspecified; R73.03 Prediabetes; I35.0 Nonrheumatic aortic (valve) stenosis; F41.9 Anxiety disorder, unspecified; I05.2 Rheumatic mitral stenosis with insufficiency; E78.5 Hyperlipidemia, unspecified; M81.0 Age-related osteoporosis without current pathological fracture; Z79.01 Long term (current) use of anticoagulants; Z11.52 Encounter for screening for COVID-19; Z95.0 Presence of cardiac pacemaker; Z99.3 Dependence on wheelchair
CPT/HCPCS: 36415; 71045; 80048; 80053; 80202; 81001; 83605; 83735; 83880; 84484; 85025; 85610; 87040; 87077; 87086; 87088; 87181; 87635; 93005; 96374; 96375; 97110; 97162; 97165; 97530; 99285; A9270; G0378; J0290; J1940; J3010; J3370

== ENCOUNTER 2023-10-14 11:07 | Inpatient (IN) | payer MEDICARE, SELFPAY ==
--- NOTE | ~2023-10-14 | XR_ITS ---
EXAMINATION: XR barium swallow modified DATE: 10/15/2023 14:45 INDICATION: Witnessed choking episode. TECHNIQUE: The patient was given barium-containing material of multiple consistencies to swallow by t sharath speech pathologist while I performed fluoroscopy. Fluoroscopy exposure time was 0.9 minutes. The n umber of fluoroscopy images saved to the PACS was 1. Dose-area product was 0.566 Gy-cm^2. FINDINGS: The oral stage, pharyngeal stage, and cervical/esophageal stage of the swallow are normal. IMPRESSION: 1. Normal modified barium swallow. 2. Please refer to the speech therapy report for recommendations. Reviewed, dictated and finalized at location A.
--- NOTE | ~2023-10-14 | CT_ITS ---
EXAMINATION: CT abdomen pelvis wo con DATE: 10/15/2023 10:48 INDICATION: Acute kidney injury. Abnormal urinalysis. TECHNIQUE: Computed tomography (CT) of the abdomen and pelvis was performed without intravenous contr ast. Automated exposure control and iterative reconstruction technique were employed. The dose-length product was 181.79 mGy-cm. COMPARISON: CT abdomen and pelvis 11/16/2020 FINDINGS: The visualized portions of the lung bases demonstrate septal thickening and groundglass op[place] cities, consistent pulmonary edema. There are small pleural effusions. Cardiomegaly is noted. There a re coronary artery calcifications. No pericardial effusion. There are wall calcifications of left atr ium of the heart. There is a pacer/defibrillator wire in right ventricle. There are cysts in the live r measuring up to 10 mm. The gallbladder, spleen, pancreas, and adrenal glands are normal. There is m ild atrophy of the kidneys. There is no urolithiasis. No hydronephrosis. Stool distends the rectum. T he appendix is not visualized. There is calcified atherosclerosis of the aorta and many of the other arteries. There are no pathologically enlarged lymph nodes. There is no free intraperitoneal fluid. T here is mild lumbar spondylosis. Lumbar levocurvature is noted. IMPRESSION: 1. Mild atrophy of the kidneys. No hydronephrosis. 2. Moderate pulmonary edema and small pleural effusions. Reviewed, dictated and finalized at location A.
--- NOTE | ~2023-10-14 | CT_ITS ---
EXAMINATION: CT brain wo con DATE: 10/14/2023 13:12 INDICATION: Altered mental status. TECHNIQUE: Computed tomography (CT) of the head was performed without intravenous contrast. The mA wa s adjusted according to patient size. Iterative reconstruction technique was employed. The dose-lengt h product was 1210.67 mGy-cm. COMPARISON: Head CT 07/11/2023 FINDINGS: There is an old infarct in right cerebellum. There is an old infarct involving right fronta l, parietal, and temporal lobes, right insula, and the right basal ganglia. There is no intracranial hemorrhage, acute infarction, or abnormal intracranial mass lesion. There is ex vacuo dilatation of b ankit of right lateral ventricle. There is mucosal thickening in the paranasal sinuses with sclerosis o f some of the sinus cruz, consistent with chronic sinusitis. There are likely changes of ocular lens replacement surgeries. The mastoid air cells are normal. IMPRESSION: 1. Large old infarct involving the right frontal, parietal, and temporal lobes, right insula, and rig ht basal ganglia. 2. Old infarct in the right cerebellum. 3. Chronic sinusitis. Reviewed, dictated and finalized at location A. IMPRESSION: 1. Large old infarct involving the right frontal, parietal, and temporal lobes, right insula, and right basal ganglia. 2. Old infarct in the right cerebellum. 3. Chronic sinusitis.
[2023-10-14 11:02] VITALS: BP 169/54; PULSE 66; RESP 16; TEMP 36.4; O2SAT 100
--- NOTE | 2023-10-14 11:32 | ECG_ITS ---
[facility] [address] Test Date: 2023-10-14 Pat Name: Kait Skaggs Department: Room: Gender: F Layout Former: MARYCHUY : 1945 Requested By: Luisa Yin Order Number: [id number] Aleks MD: Mathew Navarro D.O. Measurements Intervals [place] Rate: 52 P: 0 VT: 0 QRS: 54 QRSD: 85 T: 248 QT: 478 QTc: 445 Interpretive Statements SINUS BRADYCARDIA ELECTRONIC VENTRICULAR PACEMAKER COMPLEXES LEFT VENTRICULAR HYPERTROPHY WITH ST-T CHANGES ST DEVIATION AND MODERATE T-WAVE ABNORMALITY, CONSIDER ANTEROLATERAL ISCHEMIA BASELINE ARTIFACT- I, II, III, AVR, AVL, AVF, V1-V6 ABNORMAL ECG No previous ECG available for comparison Electronically Signed On 10-15-2023 08:51:54 CDT by Mathew Navarro D.O.
--- NOTE | 2023-10-14 12:19 | ED.AMS ---
HPI - Altered Mental Status General Chief Complaint: Altered Mental Status Stated Complaint: ams x 1 day, baseline a+ox 1 Time Seen by Provider: 10/14/23 11:53 History of Present Illness HPI narrative: 78-year-old female presenting to the emergency department for evaluation for increased altered mental status. Patient was recently admitted for CHF and urinary tract infection. Daughter states patient is still on antibiotic. Mother states patient became increasingly confused yesterday. Non also reports that the patient has had decreased p.o. intake. At time of evaluation patient denies any current complaints. Related Data Home Medications Medication Instructions Recorded Confirmed cholecalciferol (vitamin D3) 125 125 mcg PO DAILY 02/13/23 10/05/23 mcg (5,000 unit) capsule mecobalamin (vitamin B12) 1,000 1,000 mcg sublingual DAILY 02/13/23 10/05/23 mcg disintegrating tablet,sublingual ferrous sulfate 325 mg (65 mg 325 mg PO BID 03/06/23 10/05/23 iron) tablet potassium chloride 20 mEq 20 meq PO DAILY 09/01/23 10/05/23 tablet,extended release baclofen 5 mg tablet 5 mg PO Q8H PRN Pain 10/05/23 10/05/23 calcium carbonate (Oyster Shell 500 mg PO DAILY 10/05/23 10/05/23 Calcium 500) phenytoin sodium extended 100 mg 100 mg PO BID 10/05/23 10/05/23 capsule Allergies Allergy/AdvReac Type Severity Reaction Status Date / Time No Known Allergies Allergy Verified 10/14/23 12:57 Review of Systems Review of Systems: All systems reviewed & are unremarkable except as noted in HPI and below PMFSH Past Medical History Medical History Anemia Aortic stenosis Benign essential hypertension Cerebrovascular accident (1991) Attributed to thrombus formation on mitral valve; residual left-sided weakness. Chronic anticoagulation Chronic kidney disease, stage 3 Hearing loss Hyperlipidemia Osteoporosis Paroxysmal atrial fibrillation Pre-diabetes Rash Seizures Seizure following stroke in 1991 though non since that time, remains on Dilantin. Thalassemia Vitamin B12 deficiency Vitamin D deficiency Surgical History Surgical History History of permanent cardiac pacemaker placement Status post mitral valve annuloplasty Family History Family History Mother Cerebrovascular accident Father Hypertension Social History Social History Social History: Surrogate medical decision maker: Tatiana Way, daughter. 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 Spiritual care concerns: No Exam Narrative: APPEARANCE: Well appearing, no pain, no distress, well-nourished. HEAD: normocephalic, atraumatic. EYES: PERRLA/EOMI, conjunctivae clear. NOSE: Normal no drainage NECK: Supple. No adenopathy, no masses. RESPIRATORY: Airway patent, respirations nonlabored. Clear to auscultation bilaterally, no rales, rhonchi, wheezing. CARDIOVASCULAR: Regular rate and rhythm without murmurs rubs or gallops. ABDOMINAL: Soft, nontender, nondistended, normal bowel sounds MUSCULOSKELETAL: Moves all extremities. Strength/ROM intact, No edema, No calf tenderness. NEURO: Alert. Cranial nerves II through XII intact. Grossly SKIN: Warm, dry. Normal Color Course
[2023-10-14 12:24] LABS: Appearance Urine Clear (Clear); Bacteria Urine 4+ /hpf; Bilirubin Urine Negative (Negative); Blood Urine Non-Hemolyzed Trace (Negative); Color Urine Yellow (Yellow); Glucose Urine UA Negative (Negative); Ketones Urine Negative (Negative); Leukocyte Esterase Ur 3+ LEU/UL (Negative); Need Manual Microscopic Reviewed; Nitrate Urine Positive (Negative); Protein Urine Trace mg/dL (Negative); Specific Grav Ur 1.012 (1.001-1.035); Squamous Epithelial Cell Urine None Seen /hpf (Few); Urobilinogen Urine 0.2 mg/dL (<2.0); WBC Urine 51-100 /hpf (0-3); pH Urine 7.5 (5.0-9.0)
[2023-10-14 12:28] LABS: Add Urine Microscopic? YES
[2023-10-14 12:57] LABS: Basophils Absolute Auto 0.1 K/mm3 (0.0-0.1); Basophils Percent Auto 0.7 % (0.2-1.2); Eosinophils Absolute Auto 0.1 K/mm3 (0-0.3); Eosinophils Percent Auto 1.6 % (0-4.4); Hematocrit 29.7 % (37.0-47.0); Hemoglobin 9.2 g/dL (12.0-15.0); Immature Granulocyte Absolute 0.02 K/mm3 (0.00-0.031); Immature Granulocyte Percent A 0.3 % (0-0.5); Lymphocytes Absolute Auto 0.79 K/mm3 (0.9-3.2); Lymphocytes Percent Auto 10.5 % (18.3-44.2); Mean Corpuscular Hemoglobin 25.1 pg (26-34); Mean Corpuscular Volume 80.9 fl (80-100); Mean Platelet Volume 9.3 fl (7.4-10.4); Monocytes Absolute Auto 0.8 K/mm3 (0.1-0.6); Monocytes Percent Auto 10.7 % (2.6-8.5); Neutrophils Absolute Auto 5.7 K/mm3 (1.3-6.7); Neutrophils Percent Auto 76.2 % (45.5-73.1); Platelet Count Result 408 k/mm3 (150-375); Red Blood Count 3.67 M/mm3 (4.2-5.4); Red Cell Distribution Width 18.5 % (11.5-14.5); White Blood Count 7.5 K/mm3 (4.5-10.0)
--- NOTE | 2023-10-14 13:03 | PC.NURSE ---
phlebotomy called for 2nd set of cultures
[2023-10-14 13:13] LABS: Lactic Acid Reflex 1.4 mmol/L (0.7-2.0)
[2023-10-14 13:14] LABS: Alanine Aminotransferase 14 U/L (6-35); Albumin Level 3.7 g/dL (3.5-5.1); Alkaline Phosphatase 161 U/L (38-126); Anion Gap 7 mmol/L (4-12); Aspartate Amino Transferase 29 U/L (14-36); Bilirubin,Total 0.6 mg/dL (0.2-1.3); Blood Urea Nitrogen 73 mg/dL (7-17); Calcium 9.4 mg/dL (8.4-10.2); Carbon Dioxide 31 mmol/L (22-30); Chloride 99 mmol/L (98-107); Estimated CRCL calculation 8 ml/min; Estimated Glomerular Filt Rate 14; Glucose 109 mg/dL (65-110); Potassium 4.8 mmol/L (3.4-5.0); Sodium 137 mmol/L (137-145)
[2023-10-14 13:20] LABS: INR 1.7; Prothrombin Time 20.9 Seconds (11.1-14.7)
[2023-10-14 13:22] LABS: Partial Thromboplastin Time 26.8 Seconds (22.3-36.8)
[2023-10-14] MEDS: SODIUM CHLORIDE 0.9% IV 1,000 ML 999 ML IV CONT (13:48)
[2023-10-14 13:53] VITALS: BP 164/55; PULSE 52; RESP 13; O2SAT 100
[2023-10-14 15:15] VITALS: BP 168/52; PULSE 58; RESP 17; TEMP 36.1; O2SAT 100
--- NOTE | 2023-10-14 15:41 | PM.IMHP ---
H&P: HPI History of Present Illness Date/Time: 10/14/23 15:50 Chief Complaint: Altered mental status. Narrative: This is an 78-year-old female with history of stroke with left hemiplegia, seizures, aortic valve stenosis, mitral valve annuloplasty, paroxysmal atrial fibrillation status post permanent pacemaker insertion on chronic anticoagulation, pulmonary hypertension, aortic stenosis, hypertension, hyperlipidemia, chronic kidney disease, and thalassemia who presented to the emergency department for evaluation of altered mental status. Due to her current altered mental status she is not able to provide history and thus the following is obtained via a review of her electronic medical records as well as information provided by 1 of her daughters. She was admitted to the hospital last week for CHF exacerbation and her swelling improved with diuresis. Her furosemide was increased to 40 mg twice a day instead of once a day on discharge. She was also discharged on linezolid to complete a 7 day course after a urine culture came back growing Enterococcus species which was resistant to ampicillin. I did not see any documentation pertaining to whether not the patient was symptomatic with that. In any event, daughter reports that she has not been as perky as usual since discharge. Today she was very lethargic and was unable to recognize her daughter and she was sent in for evaluation. There is no mention of fever, cough, vomiting, or diarrhea. The patient has not voiced any complaints today. At the time my evaluation she remains somnolent. Daughter reports that she seems to have perked up somewhat after receiving IV fluids. In the ED: She was afebrile on arrival with stable blood pressures. Labs were significant for WBC count of 7.5, hemoglobin 9.2, platelet for weight, INR 1.7, sodium 137, potassium 4.8, BUN 73, creatinine 3.10 (baseline 1.3 to 1.50), lactic acid 1.4. Urine was positive for nitrates, 3+ leukocyte esterase, 3 to 5 RBC, 51 to 100 WBC, and 4+ bacteria. Head CT did not show acute findings. She was bolused with 1 L normal saline was given a g of ceftriaxone and she is being admitted in this setting. Review of Systems Review of Systems: Unable to obtain given clinical condition. [facility] Past Medical History Medical History (Updated 10/14/23 @ 21:24 by Nellie Bonds PA-C) Anemia Aortic stenosis Benign essential hypertension Cerebrovascular accident (1991) Attributed to thrombus formation on mitral valve; residual left-sided weakness. Chronic anticoagulation Chronic kidney disease, stage 3 Diastolic dysfunction Hearing loss Hyperlipidemia Osteoporosis Paroxysmal atrial fibrillation Pre-diabetes Rash Seizures Seizure following stroke in 1991 though non since that time, remains on Dilantin. Thalassemia Vitamin B12 deficiency Vitamin D deficiency Surgical History Surgical History History of permanent cardiac pacemaker placement Status post mitral valve annuloplasty Family History Family History Mother Cerebrovascular accident Father Hypertension Social History Social History Social History: Surrogate medical decision maker: Tatiana Way, daughter. 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
[2023-10-14 16:03] VITALS: BMI 15.0
[2023-10-14 18:53] LABS: Phenytoin Dilantin 5 ug/mL (10-20)
--- NOTE | 2023-10-14 19:27 | PC.NURSE ---
Pt to floor requesting something to drink. Pt took a sip of water and started coughing. Pt family told this RN that pt has had pna x 2 in the last two months. RN asked family if pt aspirates on liquids/food. Family states that pt chokes on fluids once a week. Pt states more than that. Vamshi notified of this finding; no new orders received. Pt also has fluid restriction of 1800mls/day; provider also made aware. Night RN notified of these findings.
[2023-10-14 20:00] VITALS: PULSE 54
[2023-10-14 21:00] VITALS: BP 136/53; PULSE 79; RESP 16; TEMP 36.2; O2SAT 100
[2023-10-14] MEDS: ACETAMINOPHEN 325 MG TABLET 650 MG PO (22:13)
[2023-10-14 22:14] VITALS: PULSE 80
[2023-10-14] MEDS: PHENYTOIN SODIUM 100 MG EXTENDED RELEASE CAP PO (22:14)
[2023-10-14] MEDS: SOTALOL HCL 80 MG TABLET PO (22:14)
[2023-10-14] MEDS: SODIUM CHLORIDE 0.9% IV 1,000 ML 75 ML IV CONT (22:19)
[2023-10-15] VITALS (12 sets, daily range): BP systolic 134–153; BP diastolic 44–50; PULSE 55–59; RESP 16; TEMP 36.2–36.4; O2SAT 94–100; BMI 15.2
[2023-10-15 06:24] LABS: Hematocrit 27.6 % (37.0-47.0); Hemoglobin 8.4 g/dL (12.0-15.0); Mean Corpuscular HGB Conc 30.4 g/dl (32-36); Mean Corpuscular Hemoglobin 24.8 pg (26-34); Mean Corpuscular Volume 81.4 fl (80-100); Platelet Count Result 342 k/mm3 (150-375); Red Blood Count 3.39 M/mm3 (4.2-5.4); Red Cell Distribution Width 18.1 % (11.5-14.5); White Blood Count 6.2 K/mm3 (4.5-10.0)
[2023-10-15 06:31] LABS: Anion Gap 6 mmol/L (4-12); Blood Urea Nitrogen 66 mg/dL (7-17); Calcium 8.1 mg/dL (8.4-10.2); Carbon Dioxide 25 mmol/L (22-30); Chloride 107 mmol/L (98-107); Estimated CRCL calculation 11 ml/min; Estimated Glomerular Filt Rate 19; Glucose 100 mg/dL (65-110); Magnesium 2.3 mg/dL (1.6-2.3); Sodium 138 mmol/L (137-145)
[2023-10-15] MEDS: CHOLECALCIFEROL 1,000 UNITS TABLET 5000 UNITS PO (08:14)
[2023-10-15] MEDS: CALCIUM CARBONATE (OSCAL) 500 MG TABLET PO (08:14)
[2023-10-15] MEDS: SOTALOL HCL 80 MG TABLET PO ×2 (08:14→20:28)
[2023-10-15] MEDS: FERROUS SULFATE 325 MG TABLET DR PO ×2 (08:16→18:06)
[2023-10-15] MEDS: CYANOCOBALAMIN 1,000 MCG TABLET 1000 MCG PO (08:16)
[2023-10-15] MEDS: PHENYTOIN SODIUM 100 MG EXTENDED RELEASE CAP PO ×2 (08:16→20:29)
[2023-10-15] MEDS: FOLIC ACID 1 MG TABLET PO (08:16)
--- NOTE | 2023-10-15 09:19 | PCSTNOTE ---
Please refer to the Bedside Swallow Evaluation in the EMR. Please note, silent aspiration cannot be ruled out at bedside.
[2023-10-15 09:52] LABS: INR 1.7; Prothrombin Time 20.7 Seconds (11.1-14.7)
--- NOTE | 2023-10-15 15:27 | PCSTNOTE ---
Please refer to the Modified Barium Swallow Evaluation in the EMR.
--- NOTE | 2023-10-15 18:07 | PM.IMPN ---
Progress Note: A&P Assessment and Plan (1) Metabolic encephalopathy: Code(s): G93.41 - Metabolic encephalopathy Status: Acute (2) Acute on chronic kidney failure: Code(s): N17.9 - Acute kidney failure, unspecified; N18.9 - Chronic kidney disease, unspecified Status: Acute (3) Abnormal urinalysis: Code(s): R82.90 - Unspecified abnormal findings in urine Status: Acute (4) Thalassemia: Qualifiers: Thalassemia type: unspecified type Qualified Code(s): D56.9 - Thalassemia, unspecified Code(s): D56.9 - Thalassemia, unspecified Status: Acute (5) Benign essential hypertension: Code(s): I10 - Essential (primary) hypertension Status: Acute (6) Seizures: Code(s): R56.9 - Unspecified convulsions Status: Acute (7) Paroxysmal atrial fibrillation: Code(s): I48.0 - Paroxysmal atrial fibrillation Status: Acute (8) Chronic atrial fibrillation: Code(s): I48.20 - Chronic atrial fibrillation, unspecified Status: Chronic Plan 10/14/2023: The patient presented to the emergency department for evaluation of altered mental status for 1 day as detailed in HPI. Labs, imaging, EKG, and all reports were personally reviewed. The patient is quite somnolent and confused and likely has metabolic encephalopathy related to kidney failure. Baseline creatinine is between 1.30 and 1.50 and she currently has a BUN and creatinine of 73 and 3.10 respectively. Worsening renal function is due to a combination of factors including over diuresis during recent admission, decreased oral intake, and continued use of ARB and loop diuretics. She will be cautiously hydrated with close monitoring of volume status, renal function, and electrolytes. Her urinalysis is abnormal however she completed a combined 7 day course of vancomycin and linezolid yesterday for a urinalysis obtained 10/05/2023 which grew out Enterococcus species resistant to ampicillin. During her most recent visit there was no mention that she was having symptoms of UTI and as she is afebrile with a normal white blood cell count at this time, we will hold on initiating antibiotics pending further evaluation. CT of the abdomen pelvis has been ordered to evaluate if there is a structural reason for her continued abnormal UA. She has chronic anemia related to thalassemia and her hemoglobin is stable and will be monitored. Vital signs were reviewed and they are stable. EKG showed a ventricular paced rhythm. No recent seizures; check Dilantin level to rule out toxicity. Her medications will be reviewed and resumed as appropriate. Findings and treatment plan were discussed with the patient's daughter. Questions were solicited and answered to satisfaction. The patient's medical management will be taken over by the hospitalist team in a.m. 10/15/2023: Advance patient to admitted in medical unit under full inpatient status Patient recently discharged from hospital Patient has completed a course of UTI, WBC is stable although urinanalysis still shows residual urine infection No need for additional antibiotics at this time Patient's creatinine baseline is 1.5 Patient received the IV hydration in the ER and on the floor His creatinine was 3.1 on admission, which is slowly downtrending with IV hydration Continue with gentle IV hydration at 75 cc per hour Strict input and output monitoring Her INR is subtherapeutic at 1.5 Patient given 2 mg Coumadin oral x1 dose Continue with regular Coumadin dosing PT INR daily PT/OT evaluation ordered ? Patient seen and examined at bedside during my morning rounds ? Collaborated with patient's nurse at the bedside in detail and addressed all concerns ? Labs, electrolytes, radiology, investigations and test results reviewed ? Consult/Nursing/Ancilliary notes on the chart reviewed and appreciated ? Spoke with patient/family at the bedside and answered all the questions that they had Repeat
[2023-10-15] MEDS: WARFARIN (*PBKC) 2 MG TABLET PO (18:58)
[2023-10-15 20:32] LABS: Basophils Percent Auto 0.4 % (0.2-1.2); Eosinophils Absolute Auto 0.1 K/mm3 (0-0.3); Eosinophils Percent Auto 1.6 % (0-4.4); Hematocrit 27.7 % (37.0-47.0); Hemoglobin 8.6 g/dL (12.0-15.0); Immature Granulocyte Absolute 0.02 K/mm3 (0.00-0.031); Immature Granulocyte Percent A 0.3 % (0-0.5); Lymphocytes Absolute Auto 1.03 K/mm3 (0.9-3.2); Mean Corpuscular Hemoglobin 25.1 pg (26-34); Mean Corpuscular Volume 80.8 fl (80-100); Mean Platelet Volume 9.2 fl (7.4-10.4); Monocytes Percent Auto 14.4 % (2.6-8.5); Neutrophils Absolute Auto 4.7 K/mm3 (1.3-6.7); Neutrophils Percent Auto 68.3 % (45.5-73.1); Platelet Count Result 361 k/mm3 (150-375); Red Blood Count 3.43 M/mm3 (4.2-5.4); Red Cell Distribution Width 18.5 % (11.5-14.5); White Blood Count 6.9 K/mm3 (4.5-10.0)
[2023-10-15 20:44] LABS: INR 1.6; Prothrombin Time 19.9 Seconds (11.1-14.7)
[2023-10-15 20:46] LABS: Anion Gap 7 mmol/L (4-12); Blood Urea Nitrogen 57 mg/dL (7-17); Carbon Dioxide 23 mmol/L (22-30); Chloride 108 mmol/L (98-107); Estimated CRCL calculation 16 ml/min; Estimated Glomerular Filt Rate 31; Glucose 114 mg/dL (65-110); Phosphorus 4.2 mg/dL (2.5-4.5); Potassium 4.1 mmol/L (3.4-5.0); Sodium 138 mmol/L (137-145)
[2023-10-16] VITALS (11 sets, daily range): BP systolic 102–143; BP diastolic 42–82; PULSE 53–77; RESP 15–20; TEMP 36.5–36.6; O2SAT 94–100
[2023-10-16] MEDS: FOLIC ACID 1 MG TABLET PO (09:28)
[2023-10-16] MEDS: CHOLECALCIFEROL 1,000 UNITS TABLET 5000 UNITS PO (09:29)
[2023-10-16] MEDS: SOTALOL HCL 80 MG TABLET PO ×2 (09:29→21:47)
[2023-10-16] MEDS: CALCIUM CARBONATE (OSCAL) 500 MG TABLET PO (09:31)
[2023-10-16] MEDS: PHENYTOIN SODIUM 100 MG EXTENDED RELEASE CAP PO (09:31)
[2023-10-16] MEDS: CYANOCOBALAMIN 1,000 MCG TABLET 1000 MCG PO (09:31)
[2023-10-16] MEDS: FERROUS SULFATE 325 MG TABLET DR PO ×2 (09:32→18:50)
[2023-10-16] MEDS: SODIUM CHLORIDE 0.9% IV 1,000 ML 75 ML IV CONT (09:32)
[2023-10-16 09:54] LABS: Phenytoin Dilantin 5 ug/mL (10-20)
--- NOTE | 2023-10-16 16:34 | PM.IMPN ---
Progress Note: A&P Assessment and Plan (1) Metabolic encephalopathy: Code(s): G93.41 - Metabolic encephalopathy Status: Acute (2) Acute on chronic kidney failure: Code(s): N17.9 - Acute kidney failure, unspecified; N18.9 - Chronic kidney disease, unspecified Status: Acute (3) Abnormal urinalysis: Code(s): R82.90 - Unspecified abnormal findings in urine Status: Acute (4) Thalassemia: Qualifiers: Thalassemia type: unspecified type Qualified Code(s): D56.9 - Thalassemia, unspecified Code(s): D56.9 - Thalassemia, unspecified Status: Acute (5) Benign essential hypertension: Code(s): I10 - Essential (primary) hypertension Status: Acute (6) Seizures: Code(s): R56.9 - Unspecified convulsions Status: Acute (7) Paroxysmal atrial fibrillation: Code(s): I48.0 - Paroxysmal atrial fibrillation Status: Acute (8) Chronic atrial fibrillation: Code(s): I48.20 - Chronic atrial fibrillation, unspecified Status: Chronic Plan 10/14/2023: The patient presented to the emergency department for evaluation of altered mental status for 1 day as detailed in HPI. Labs, imaging, EKG, and all reports were personally reviewed. The patient is quite somnolent and confused and likely has metabolic encephalopathy related to kidney failure. Baseline creatinine is between 1.30 and 1.50 and she currently has a BUN and creatinine of 73 and 3.10 respectively. Worsening renal function is due to a combination of factors including over diuresis during recent admission, decreased oral intake, and continued use of ARB and loop diuretics. She will be cautiously hydrated with close monitoring of volume status, renal function, and electrolytes. Her urinalysis is abnormal however she completed a combined 7 day course of vancomycin and linezolid yesterday for a urinalysis obtained 10/05/2023 which grew out Enterococcus species resistant to ampicillin. During her most recent visit there was no mention that she was having symptoms of UTI and as she is afebrile with a normal white blood cell count at this time, we will hold on initiating antibiotics pending further evaluation. CT of the abdomen pelvis has been ordered to evaluate if there is a structural reason for her continued abnormal UA. She has chronic anemia related to thalassemia and her hemoglobin is stable and will be monitored. Vital signs were reviewed and they are stable. EKG showed a ventricular paced rhythm. No recent seizures; check Dilantin level to rule out toxicity. Her medications will be reviewed and resumed as appropriate. Findings and treatment plan were discussed with the patient's daughter. Questions were solicited and answered to satisfaction. The patient's medical management will be taken over by the hospitalist team in a.m. 10/15/2023 & 10/16/2023: Advance patient to admitted in medical unit under full inpatient status Patient recently discharged from hospital and has already completed a course of antibiotics for her UTI WBC is stable although urinanalysis still shows residual urine infection No need for additional antibiotics at this time Patient's creatinine baseline is 1.5 Patient received the IV hydration in the ER and on the floor Her creatinine is slowly downtrending with IV hydration 3.1 -> 2.4 -> 1.6 Continue with gentle IV hydration at 75 cc per hour Strict input and output monitoring Her INR is subtherapeutic at 1.6 Patient given 3 mg Coumadin oral x1 dose Continue with regular Coumadin dosing PT INR daily PT/OT evaluation ordered DC planning back to her facility over the next 1-2 days if she remains stable and approaches her baseline ? Patient seen and examined at bedside during my morning rounds ? Collaborated with patient's nurse at the bedside in detail and addressed all concerns ? Labs, electrolytes, radiology, investigations and test results reviewed ? Consult/Nursing/Ancilliary notes on
[2023-10-16 18:24] LABS: Basophils Percent Auto 0.5 % (0.2-1.2); Eosinophils Absolute Auto 0.1 K/mm3 (0-0.3); Eosinophils Percent Auto 1.2 % (0-4.4); Hemoglobin 9.6 g/dL (12.0-15.0); Immature Granulocyte Absolute 0.02 K/mm3 (0.00-0.031); Immature Granulocyte Percent A 0.2 % (0-0.5); Lymphocytes Absolute Auto 1.18 K/mm3 (0.9-3.2); Lymphocytes Percent Auto 13.9 % (18.3-44.2); Mean Corpuscular Hemoglobin 24.9 pg (26-34); Mean Corpuscular Volume 80.3 fl (80-100); Mean Platelet Volume 8.9 fl (7.4-10.4); Monocytes Percent Auto 11.3 % (2.6-8.5); Neutrophils Absolute Auto 6.2 K/mm3 (1.3-6.7); Neutrophils Percent Auto 72.9 % (45.5-73.1); Platelet Count Result 318 k/mm3 (150-375); Red Blood Count 3.86 M/mm3 (4.2-5.4); Red Cell Distribution Width 18.1 % (11.5-14.5); White Blood Count 8.5 K/mm3 (4.5-10.0)
[2023-10-16 18:37] LABS: Anion Gap 7 mmol/L (4-12); Blood Urea Nitrogen 50 mg/dL (7-17); Calcium 9.3 mg/dL (8.4-10.2); Carbon Dioxide 25 mmol/L (22-30); Chloride 109 mmol/L (98-107); Estimated CRCL calculation 19 ml/min; Estimated Glomerular Filt Rate 39; Glucose 171 mg/dL (65-110); INR 2.1; Prothrombin Time 23.4 Seconds (11.1-14.7); Sodium 141 mmol/L (137-145)
[2023-10-16] MEDS: PHENYTOIN SODIUM 100 MG EXTENDED RELEASE CAP 200 MG PO (18:51)
[2023-10-16] MEDS: WARFARIN (*PBKC) 3 MG TABLET PO (21:47)
[2023-10-16] MEDS: WARFARIN (*PBKC) 1.5 MG TABLET PO (21:47)
[2023-10-16] MEDS: MELATONIN 5 MG TABLET PO (21:48)
[2023-10-17] VITALS: PULSE 52
[2023-10-17 04:00] VITALS: PULSE 52
[2023-10-17 06:00] VITALS: BP 119/50; PULSE 50; RESP 20; TEMP 36.5; O2SAT 97
[2023-10-17 06:05] LABS: Phenytoin Dilantin 7 ug/mL (10-20)
[2023-10-17] MEDS: SODIUM CHLORIDE 0.9% IV 1,000 ML 75 ML IV CONT (07:21)
[2023-10-17 08:00] VITALS: PULSE 54
[2023-10-17] MEDS: CHOLECALCIFEROL 1,000 UNITS TABLET 5000 UNITS PO (09:10)
[2023-10-17] MEDS: CYANOCOBALAMIN 1,000 MCG TABLET 1000 MCG PO (09:10)
[2023-10-17] MEDS: FERROUS SULFATE 325 MG TABLET DR PO (09:10)
[2023-10-17] MEDS: PHENYTOIN SODIUM 100 MG EXTENDED RELEASE CAP 200 MG PO (09:10)
[2023-10-17] MEDS: FOLIC ACID 1 MG TABLET PO (09:10)
[2023-10-17] MEDS: CALCIUM CARBONATE (OSCAL) 500 MG TABLET PO (09:11)
[2023-10-17 09:14] VITALS: PULSE 59
[2023-10-17] MEDS: SOTALOL HCL 80 MG TABLET PO (09:14)
--- NOTE | 2023-10-17 09:30 | PM.DS ---
DS: Admitting Diagnosis Discharge Date 10/17/2023: Admitting Diagnosis (1) Metabolic encephalopathy: ?Code(s): G93.41 - Metabolic encephalopathy ?Status:?Acute (2) Acute on chronic kidney failure: ?Code(s): N17.9 - Acute kidney failure, unspecified; N18.9 - Chronic kidney disease, unspecified ?Status:?Acute (3) Abnormal urinalysis: ?Code(s): R82.90 - Unspecified abnormal findings in urine ?Status:?Acute (4) Thalassemia: ?Qualifiers: ?Thalassemia type:?unspecified type? Qualified Code(s):?D56.9 - Thalassemia, unspecified ?Code(s): D56.9 - Thalassemia, unspecified ?Status:?Acute (5) Benign essential hypertension: ?Code(s): I10 - Essential (primary) hypertension ?Status:?Acute (6) Seizures: ?Code(s): R56.9 - Unspecified convulsions ?Status:?Acute (7) Paroxysmal atrial fibrillation: ?Code(s): I48.0 - Paroxysmal atrial fibrillation ?Status:?Acute (8) Chronic atrial fibrillation: ?Code(s): I48.20 - Chronic atrial fibrillation, unspecified ?Status:?Chronic DS: Discharge Diagnosis Discharge Diagnosis (1) Metabolic encephalopathy: Code(s): G93.41 - Metabolic encephalopathy Status: Acute (2) Diastolic dysfunction: Code(s): I51.89 - Other ill-defined heart diseases Status: Acute (3) Acute on chronic kidney failure: Code(s): N17.9 - Acute kidney failure, unspecified; N18.9 - Chronic kidney disease, unspecified Status: Acute (4) AMS (altered mental status): Code(s): R41.82 - Altered mental status, unspecified Status: Acute (5) LISA (acute kidney injury): Code(s): N17.9 - Acute kidney failure, unspecified Status: Acute (6) Warfarin anticoagulation: Code(s): Z79.01 - detention (current) use of anticoagulants Status: Acute (7) CHF (congestive heart failure): Qualifiers: Heart failure chronicity: acute on chronic Heart failure type: systolic Qualified Code(s): I50.23 - Acute on chronic systolic (congestive) heart failure Code(s): I50.9 - Heart failure, unspecified Status: Acute (8) Shoulder arthralgia: Qualifiers: Laterality: right Qualified Code(s): M25.511 - Pain in right shoulder Code(s): M25.519 - Pain in unspecified shoulder Status: Acute (9) Severe malnutrition: Code(s): E43 - Unspecified severe protein-calorie malnutrition Status: Acute (10) Acute kidney injury superimposed on CKD: Code(s): N17.9 - Acute kidney failure, unspecified; N18.9 - Chronic kidney disease, unspecified Status: Acute (11) Chronic renal insufficiency: Code(s): N18.9 - Chronic kidney disease, unspecified Status: Acute (12) Status post open mitral valve commissurotomy: Code(s): Z98.890 - Other specified postprocedural states Status: Acute (13) Abnormal urinalysis: Code(s): R82.90 - Unspecified abnormal findings in urine Status: Acute (14) Chronic kidney disease, stage 3: Code(s): N18.30 - Chronic kidney disease, stage 3 unspecified Status: Acute (15) Chronic anticoagulation: Code(s): Z79.01 - detention (current) use of anticoagulants Status: Acute (16) Paroxysmal atrial fibrillation: Code(s): I48.0 - Paroxysmal atrial fibrillation Status: Acute (17) Congestive heart failure: Qualifiers: Heart failure type: diastolic Heart failure chronicity: acute on chronic Qualified Code(s): I50.33 - Acute on chronic diastolic (congestive) heart failure Code(s): I50.9 - Heart failure, unspecified Status: Acute (18) Aortic stenosis: Qualifiers: Cardiac valve disease etiology: etiology unspecified Qualified Code(s): I35.0 - Nonrheumatic aortic (valve) stenosis Code(s): I35.0 - Nonrheumatic aortic (valve) stenosis Status: Acute (19) Osteoporosis: Code(s): M81.0 - Age-relate
[2023-10-17 12:00] VITALS: PULSE 52
[2023-10-17 12:13] LABS: SARS-CoV-2 RNA PCR Negative (Negative)
== END 2023-10-17 12:45 | DRG 689 ==
LOC: ANHED 13:50 → ANH3MEDSUR 14:39
PROVIDERS: Physician Assistant; Student in an Organized Health Care Education/Training Program; Admitting Provider General Practice; Emergency Provider Emergency Medicine; PCP Internal Medicine; Visit Provider Family Medicine
DX: N39.0 Urinary tract infection, site not specified (principal); G93.41 Metabolic encephalopathy; I50.23 Acute on chronic systolic (congestive) heart failure; I69.354 Hemiplegia and hemiparesis following cerebral infarction affecting left non-dominant side; Z16.11 Resistance to penicillins; N17.9 Acute kidney failure, unspecified; I13.0 Hypertensive heart and chronic kidney disease with heart failure and stage 1 through stage 4 chronic kidney disease, or unspecified chronic kidney disease; E44.0 Moderate protein-calorie malnutrition; Z68.1 Body mass index [BMI] 19.9 or less, adult; B96.20 Unspecified Escherichia coli [E. coli] as the cause of diseases classified elsewhere; D56.9 Thalassemia, unspecified; E78.5 Hyperlipidemia, unspecified; E53.8 Deficiency of other specified B group vitamins; E55.9 Vitamin D deficiency, unspecified; H91.90 Unspecified hearing loss, unspecified ear; I48.0 Paroxysmal atrial fibrillation; I35.0 Nonrheumatic aortic (valve) stenosis; I27.20 Pulmonary hypertension, unspecified; N18.30 Chronic kidney disease, stage 3 unspecified; Z11.52 Encounter for screening for COVID-19; Z95.2 Presence of prosthetic heart valve; Z95.0 Presence of cardiac pacemaker; Z79.01 Long term (current) use of anticoagulants
CPT/HCPCS: 36415; 70450; 74176; 80048; 80053; 80185; 81001; 83605; 83735; 84100; 85025; 85027; 85610; 85730; 87040; 87077; 87086; 87088; 87186; 87635; 92610; 92611; 93005; 96365; 99285; A9270; G0378; J0696; J7030

== ENCOUNTER 2023-10-26 13:43 | Observation (INO) | payer MEDICARE, SELFPAY ==
[2023-10-26] VITALS (25 sets, daily range): BP systolic 60–113; BP diastolic 40–60; PULSE 50–60; RESP 8–26; TEMP 36.5; O2SAT 93–100
--- NOTE | ~2023-10-26 | XR_ITS ---
XR chest 2V 10/26/2023 16:29 Indication: Weakness Procedure: 2 view chest Comparison: Comparison to multiple prior studies sequentially, with oldest reviewed study dated 07/11. Findings: Bibasilar airspace disease, consistent with pneumonia. Consider aspiration. Small pleural e ffusions. Cardiomegaly. Pacemaker lead is stable. No pneumothorax. Chronic left apical pleural cappin g. Impression: 1: Bibasilar airspace disease, compatible with pneumonia. 2: Small pleural effusions. Reviewed, dictated and finalized at location B. Impression: 1: Bibasilar airspace disease, compatible with pneumonia. 2: Small pleural effusions.
--- NOTE | 2023-10-26 14:53 | ECG_ITS ---
Test Date: 2023-10-26 15:11:10 Measurements Intervals [place] Rate: 49 P: 0 NE: 0 QRS: -56 QRSD: 136 T: 120 QT: 453 QTc: 413 Interpretive Statements [employer]LECT[employer]ER Compared to ECG 10/14/2023 11:10:45 T-wave abnormality no longer present Electronically Signed On 10-27-2023 10:48:39 CDT by Clarke Hagan M.D.
[2023-10-26 15:46] LABS: Basophils Percent Auto 0.2 % (0.2-1.2); Eosinophils Absolute Auto 0.1 K/mm3 (0-0.3); Eosinophils Percent Auto 1.2 % (0-4.4); Hematocrit 29.4 % (37.0-47.0); Hemoglobin 9.1 g/dL (12.0-15.0); Immature Granulocyte Absolute 0.04 K/mm3 (0.00-0.031); Immature Granulocyte Percent A 0.4 % (0-0.5); Lymphocytes Absolute Auto 1.01 K/mm3 (0.9-3.2); Lymphocytes Percent Auto 11.1 % (18.3-44.2); Mean Corpuscular Hemoglobin 25.6 pg (26-34); Mean Corpuscular Volume 82.8 fl (80-100); Mean Platelet Volume 9.3 fl (7.4-10.4); Monocytes Absolute Auto 0.8 K/mm3 (0.1-0.6); Monocytes Percent Auto 8.8 % (2.6-8.5); Neutrophils Absolute Auto 7.1 K/mm3 (1.3-6.7); Neutrophils Percent Auto 78.3 % (45.5-73.1); Nucleated Red Blood Cells Perc 1.3 % (0.0-0.2); Platelet Count Result 340 k/mm3 (150-375); Red Blood Count 3.55 M/mm3 (4.2-5.4); White Blood Count 9.1 K/mm3 (4.5-10.0)
[2023-10-26 16:00] LABS: INR 4.3; Prothrombin Time 41.5 Seconds (11.1-14.7)
[2023-10-26 16:01] LABS: Partial Thromboplastin Time 46.4 Seconds (22.3-36.8)
[2023-10-26 16:06] LABS: Phenytoin Dilantin 33 ug/mL (10-20)
--- NOTE | 2023-10-26 16:08 | ED.GENADULT ---
HPI - General Adult General Chief complaint: Weakness Stated complaint: abnormal labs-weakness Time Seen by Provider: 10/26/23 14:52 History of Present Illness HPI narrative: Patient is an 78-year-old female who presents ER for concerns of possible Dilantin toxicity. She is told that she had an elevated Dilantin level. She recently had her Dilantin increased from 200 mg to 400 mg. When she had an abnormal outpatient labs they decreased it to 200 mg 2 days ago. She is still feeling fatigued and weak. No chest pain chest pressure. No urinary frequency. No productive cough. No seizures. Related Data Home Medications Medication Instructions Recorded Confirmed cholecalciferol (vitamin D3) 125 125 mcg PO DAILY 02/13/23 10/26/23 mcg (5,000 unit) capsule mecobalamin (vitamin B12) 1,000 1,000 mcg PO DAILY 02/13/23 10/26/23 mcg disintegrating tablet,sublingual ferrous sulfate 325 mg (65 mg 325 mg PO BID 03/06/23 10/26/23 iron) tablet potassium chloride 20 mEq 20 meq PO DAILY 09/01/23 10/26/23 tablet,extended release baclofen 5 mg tablet 5 mg PO Q8H PRN Pain 10/05/23 10/26/23 calcium carbonate (Oyster Shell 500 mg PO DAILY 10/05/23 10/26/23 Calcium 500) folic acid 1 mg tablet 1 mg PO DAILY 10/14/23 10/26/23 sotalol 80 mg tablet 80 mg PO BID 10/14/23 10/26/23 Allergies Allergy/AdvReac Type Severity Reaction Status Date / Time No Known Allergies Allergy Verified 10/26/23 13:44 Review of Systems Review of Systems: All systems reviewed & are unremarkable except as noted in HPI and below Constitutional: Constitutional: Reports fatigue, Denies fever(s) and Reports weakness ENT: Reports system reviewed and no additional complaints, except as documented Cardiovascular: Cardiovascular: Reports no additional cardiovascular complaints Respiratory: Respiratory: Reports no additional respiratory complaints Gastrointestinal: Gastrointestinal: Reports no additional gastrointestinal complaints Musculoskeletal: Musculoskeletal: Reports no additional musculoskeletal complaints [facility] Past Medical History Medical History Anemia Aortic stenosis Benign essential hypertension Cerebrovascular accident (1991) Attributed to thrombus formation on mitral valve; residual left-sided weakness. Chronic anticoagulation Chronic kidney disease, stage 3 Diastolic dysfunction Hearing loss Hyperlipidemia Osteoporosis Paroxysmal atrial fibrillation Pre-diabetes Rash Seizures Seizure following stroke in 1991 though non since that time, remains on Dilantin. Thalassemia Vitamin B12 deficiency Vitamin D deficiency Surgical History Surgical History History of permanent cardiac pacemaker placement Status post mitral valve annuloplasty Family History Family History Mother Cerebrovascular accident Father Hypertension Social History Social History Social History: Surrogate medical decision maker: Tatiana Way, daughter. 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 Spiritual care concerns: No Exam Narrative: GENERAL: chronically ill-appearing, then, and in no acute distress. HEAD: Normocephalic, atraumatic. ENT: Mucous membranes moist. CHEST: Clear to
[2023-10-26 16:18] LABS: Alanine Aminotransferase 16 U/L (6-35); Albumin Level 3.8 g/dL (3.5-5.1); Alkaline Phosphatase 140 U/L (38-126); Anion Gap 11 mmol/L (4-12); Aspartate Amino Transferase 27 U/L (14-36); Bilirubin,Total 0.5 mg/dL (0.2-1.3); Blood Urea Nitrogen 86 mg/dL (7-17); Calcium 7.6 mg/dL (8.4-10.2); Carbon Dioxide 21 mmol/L (22-30); Chloride 105 mmol/L (98-107); Estimated Glomerular Filt Rate 10; Glucose 103 mg/dL (65-110); Sodium 137 mmol/L (137-145)
[2023-10-26 16:24] LABS: Appearance Urine Clear (Clear); Bacteria Urine None Seen /hpf; Bilirubin Urine Negative (Negative); Blood Urine Negative (Negative); Color Urine Yellow (Yellow); Glucose Urine UA Negative (Negative); Hyaline Casts Urine Present /lpf; Ketones Urine Trace mg/dL (Negative); Leukocyte Esterase Ur Negative LEU/UL (Negative); Nitrate Urine Negative (Negative); Protein Urine 1+ mg/dL (Negative); RBC Urine 0-2 /hpf (0-2); Specific Grav Ur 1.019 (1.001-1.035); Squamous Epithelial Cell Urine Occasional /hpf (Few); Urobilinogen Urine 0.2 mg/dL (<2.0); WBC Urine 0-5 /hpf (0-3)
[2023-10-26 16:26] LABS: Add Urine Microscopic? YES
[2023-10-26] MEDS: DEXTROSE 50% 25 GM/50 ML SYRINGE IV PUSH (16:34)
[2023-10-26] MEDS: SODIUM CHLORIDE 0.9% IV 1,000 ML 999 ML IV CONT ×2 (16:34→17:48)
[2023-10-26] MEDS: INSULIN HUMAN REGULAR (*BKC) 100 UNITS/ML IV PUSH (16:35)
[2023-10-26] MEDS: SODIUM ZIRCONIUM CYCLOSILICATE 10 GM POWD.PACK PO (16:35)
[2023-10-26] MEDS: CALCIUM GLUC 1,000 MG/NS 50 ML 1,000 MG/50 ML BAG 100 MG IVPB (16:36)
--- NOTE | 2023-10-26 17:21 | PM.IMHP ---
H&P: HPI History of Present Illness Date/Time: 10/26/23 17:21 Chief Complaint: Abnormal labs weakness lethargy Narrative: 78-year-old female who presents the ER with altered mental status. Patient at [facility] from recent discharge. Concern for possible Dilantin toxicity. She had an elevated Dilantin level. Her Dilantin dose was recently increased from 200 mg to 400 mg. When she had her abnormal outpatient labs this was decreased back to 200 mg 2 days ago. Continued to feel fatigued and weak. No chest pain or pressure. No cough no seizure she was recently admitted on 10/14/2023 with altered mental status. Workup in the ER with hyperkalemia LISA elevated Dilantin level chest x-ray revealed bilateral airspace opacities suggestive of pneumonia. Vitals with borderline blood pressure, afebrile. Patient admitted for further treatment. While in the ER patient started having agonal breathing and unresponsiveness with hypotension for which resuscitative measures were started. Blood sugar was 124. Patient was no code as reported by the daughter at bedside. Hence further resuscitative measures which would include intubation and vasopressors were held and comfort measures were implemented Review of Systems Review of Systems: ROS unobtainable: Yes unobtainable due to medical condition and unobtainable due to mental status PMFSH Past Medical History Medical History Anemia Aortic stenosis Benign essential hypertension Cerebrovascular accident (1991) Attributed to thrombus formation on mitral valve; residual left-sided weakness. Chronic anticoagulation Chronic kidney disease, stage 3 Diastolic dysfunction Hearing loss Hyperlipidemia Osteoporosis Paroxysmal atrial fibrillation Pre-diabetes Rash Seizures Seizure following stroke in 1991 though non since that time, remains on Dilantin. Thalassemia Vitamin B12 deficiency Vitamin D deficiency Surgical History Surgical History History of permanent cardiac pacemaker placement Status post mitral valve annuloplasty Family History Family History Mother Cerebrovascular accident Father Hypertension Social History Social History Social History: Surrogate medical decision maker: Tatiana Way, daughter. 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 Spiritual care concerns: No Meds Home Medications and Allergies Home Medications Medication Instructions Recorded Confirmed Type cholecalciferol (vitamin D3) 125 125 mcg PO DAILY 02/13/23 10/26/23 History mcg (5,000 unit) capsule mecobalamin (vitamin B12) 1,000 1,000 mcg PO DAILY 02/13/23 10/26/23 History mcg disintegrating tablet,sublingual ferrous sulfate 325 mg (65 mg 325 mg PO BID 03/06/23 10/26/23 History iron) tablet potassium chloride 20 mEq 20 meq PO DAILY 09/01/23 10/26/23 History tablet,extended release baclofen 5 mg tablet 5 mg PO Q8H PRN Pain 10/05/23 10/26/23 History calcium carbonate (Oyster Shell 500 mg PO DAILY 10/05/23 10/26/23 History Calcium 500) folic acid 1 mg tablet 1 mg PO DAILY 10/14/23 10/26/23 History sotalol 80 mg tablet 80 mg PO BID 10/14/23 10/26/23 History furosemide 40 mg tablet (Lasix) 40 mg PO DAILY #10 tabs 06
[2023-10-26] MEDS: AZITHROMYCIN 500 MG/NS 250 ML 500 MG/250 ML BAG 250 MG IVPB (17:48)
[2023-10-26 18:19] LABS: Eosinophil Urine None Seen % (None Seen)
[2023-10-26 18:20] LABS: Procalcitonin 0.2 ng/mL
[2023-10-26 18:22] LABS: Creatinine Urine 110.8 mg/dL; Urea Random Urine 503 MG/DL; Urine Eos QC 2nd Tech Confirmed
--- NOTE | 2023-10-26 18:31 | PC.NURSE ---
Pt all the sudden, while talking with the MD got unresponsive with agonal breathing.
[2023-10-26] MEDS: MORPHINE SULFATE (*CRX) 4 MG/ML INJ IV PUSH (18:35)
[2023-10-26 18:37] LABS: Sodium Urine Random 14 meq/L
[2023-10-26 18:39] LABS: Glucose Point of Care 124 mg/dl (65-105)
[2023-10-26 18:43] LABS: Anion Gap 12 mmol/L (4-12); Blood Urea Nitrogen 78 mg/dL (7-17); Calcium 6.8 mg/dL (8.4-10.2); Carbon Dioxide 17 mmol/L (22-30); Chloride 110 mmol/L (98-107); Estimated Glomerular Filt Rate 12; Glucose 98 mg/dL (65-110); Potassium 4.8 mmol/L (3.4-5.0); Sodium 139 mmol/L (137-145)
--- NOTE | 2023-10-26 18:45 | PC.NURSE ---
Pt had total of 1000ml of fluids infused.
--- NOTE | 2023-10-26 18:49 | PC.NURSE ---
Pt is comfort care, family at bedside.
[2023-10-26] MEDS: MORPHINE SULFATE (*CRX) 2 MG/ML INJ IV PUSH (20:18)
[2023-10-26] MEDS: LORazepam INJ (*CRX) 2 MG/ML VIAL IV PUSH (20:45)
--- NOTE | 2023-10-26 23:13 | PC.NURSE ---
[facility] [place] at [id number]
--- NOTE | 2023-10-30 08:01 | P.DN_ITS ---
Discharge Summary Date and Time Date of : 10/26/23 Time of : 21:26 Probable Cause of Probable Cause of : Sepsis Multiorgan failure Pneumonia acute Kidney injury Summary Hospital Course: 78-year-old female who presents the ER with altered mental status /generalized weakness/lethargy.. Patient at [facility] from recent discharge. Concern for possible Dilantin toxicity. She had an elevated Dilantin level Recently diagnosed. Her Dilantin dose was recently increased from 200 mg to 400 mg. When she had her abnormal outpatient labs this was decreased back to 200 mg 2 days ago. Continued to feel fatigued and weak and confusion and hence brought to the ED. she had a visit with her PCP earlier today. she reported No chest pain or pressure. No cough no seizure. Workup in the ER with hyperkalemia LISA with creatinine 4.3. elevated Dilantin level chest x-ray revealed bilateral airspace opacities suggestive of pneumonia. Vitals with borderline blood pressure, afebrile. Patient admitted for further treatment. While in the ER patient started having agonal breathing and unresponsiveness with hypotension for which resuscitative measures were started. Blood sugar was 124. Patient was no code as reported by the daughter at bedside. Hence further resuscitative measures which would include intubation and vasopressors were held and comfort measures were implemented . Subsequently she During the hospital stay. Necessary arrangements were made. Additional Data Confirmation of as documented by pronouncing clinician: Pupillary Reflex, Palpable Pulses, Response to Stimuli, Heart Tones and Breath Sounds Name of Provider Notified: Dr. Silva Time Provider Notified: 21:40 Provider Requests Autopsy: No Family Requests Autopsy: No [employer] Notified: Yes Date [facility] Notified of : 10/26/23 Time [facility] Notified of : 22:25
== END 2023-10-26 23:10 | disposition expired ==
LOC: ANHED 15:04 → ANHIMU 18:25 → ANH3MED 18:48
PROVIDERS: Admitting Provider Internal Medicine; Emergency Provider Emergency Medicine; PCP Internal Medicine; Visit Provider Internal Medicine
DX: N17.9 Acute kidney failure, unspecified (principal); J18.9 Pneumonia, unspecified organism; R65.20 Severe sepsis without septic shock; G93.41 Metabolic encephalopathy; E87.5 Hyperkalemia; T42.0X5A Adverse effect of hydantoin derivatives, initial encounter; R79.1 Abnormal coagulation profile; J96.00 Acute respiratory failure, unspecified whether with hypoxia or hypercapnia; I69.354 Hemiplegia and hemiparesis following cerebral infarction affecting left non-dominant side; I13.0 Hypertensive heart and chronic kidney disease with heart failure and stage 1 through stage 4 chronic kidney disease, or unspecified chronic kidney disease; I50.23 Acute on chronic systolic (congestive) heart failure; N18.30 Chronic kidney disease, stage 3 unspecified; E78.5 Hyperlipidemia, unspecified; D64.9 Anemia, unspecified; I35.0 Nonrheumatic aortic (valve) stenosis; I48.0 Paroxysmal atrial fibrillation; R73.03 Prediabetes; G40.909 Epilepsy, unspecified, not intractable, without status epilepticus; D56.9 Thalassemia, unspecified; E55.9 Vitamin D deficiency, unspecified; E53.8 Deficiency of other specified B group vitamins; Z95.0 Presence of cardiac pacemaker; Z79.01 Long term (current) use of anticoagulants; Z98.890 Other specified postprocedural states
CPT/HCPCS: 36415; 71046; 80048; 80053; 80185; 81001; 82570; 82948; 83605; 84145; 84300; 84540; 85025; 85610; 85730; 85999; 87040; 93005; 96365; 96367; 96375; 96376; 99285; A9270; G0378; J0456; J0612; J0696; J1815; J2060; J2270; J7030